=== PATIENT | female | born 1955 | race Caucasian/White ===

== ENCOUNTER → 2020-03-29 10:44 | Outpatient (BNVA) | payer MEDICARE, SELFPAY | PROVIDERS: PCP Physician Assistant; Visit Provider Family Medicine Adult Medicine | DX: M54.12 Radiculopathy, cervical region (principal); M96.1 Postlaminectomy syndrome, not elsewhere classified; Z79.899 Other long term (current) drug therapy | CPT/HCPCS: 99202; Q3014 ==

== ENCOUNTER → 2020-04-14 13:49 | Outpatient (BNVA) | payer MEDICARE, SELFPAY | PROVIDERS: PCP Physician Assistant; Visit Provider Family Medicine Adult Medicine | DX: Z51.81 Encounter for therapeutic drug level monitoring (principal) | CPT/HCPCS: 99211 ==

== ENCOUNTER → 2020-05-12 15:41 | Outpatient (BNVA) | payer MEDICARE, SELFPAY | PROVIDERS: PCP Physician Assistant; Visit Provider Family Medicine Adult Medicine | DX: M54.12 Radiculopathy, cervical region (principal); M96.1 Postlaminectomy syndrome, not elsewhere classified | CPT/HCPCS: 99212 ==

== ENCOUNTER → 2020-06-09 15:04 | Outpatient (BNVA) | payer MEDICARE, SELFPAY | PROVIDERS: PCP Physician Assistant; Visit Provider Family Medicine Adult Medicine | DX: M54.12 Radiculopathy, cervical region (principal); M96.1 Postlaminectomy syndrome, not elsewhere classified | CPT/HCPCS: 99212 ==

== ENCOUNTER → 2020-07-07 15:06 | Outpatient (BNVA) | payer MEDICARE, SELFPAY | PROVIDERS: PCP Physician Assistant; Visit Provider Family Medicine Adult Medicine | DX: M96.1 Postlaminectomy syndrome, not elsewhere classified (principal); M54.12 Radiculopathy, cervical region | CPT/HCPCS: 99212 ==

== ENCOUNTER → 2020-07-20 15:51 | Outpatient (BNVA) | payer MEDICARE, SELFPAY | PROVIDERS: PCP Physician Assistant; Visit Provider Anesthesiology | DX: M47.812 Spondylosis without myelopathy or radiculopathy, cervical region (principal); Z79.891 Long term (current) use of opiate analgesic; Z79.899 Other long term (current) drug therapy | CPT/HCPCS: 99212 ==

== ENCOUNTER → 2020-08-17 12:08 | Outpatient (BNVA) | payer MEDICARE, SELFPAY | PROVIDERS: PCP Physician Assistant; Visit Provider Anesthesiology | DX: M47.812 Spondylosis without myelopathy or radiculopathy, cervical region (principal); Z79.891 Long term (current) use of opiate analgesic | CPT/HCPCS: Q3014 ==

== ENCOUNTER → 2020-08-18 14:59 | Outpatient (BNVA) | payer MEDICARE, SELFPAY | PROVIDERS: PCP Physician Assistant; Visit Provider Family Medicine Adult Medicine | DX: M96.1 Postlaminectomy syndrome, not elsewhere classified (principal); M54.12 Radiculopathy, cervical region; Z79.899 Other long term (current) drug therapy | CPT/HCPCS: 99212 ==

== ENCOUNTER → 2020-09-15 14:51 | Outpatient (BNVA) | payer MEDICARE, SELFPAY | PROVIDERS: PCP Physician Assistant; Visit Provider Family Medicine Adult Medicine | DX: M96.1 Postlaminectomy syndrome, not elsewhere classified (principal); M54.12 Radiculopathy, cervical region | CPT/HCPCS: 99212 ==

== ENCOUNTER → 2020-10-11 14:38 | Outpatient (BNVA) | payer MEDICARE, SELFPAY | PROVIDERS: PCP Physician Assistant; Visit Provider Family Medicine Adult Medicine | DX: M96.1 Postlaminectomy syndrome, not elsewhere classified (principal); M54.12 Radiculopathy, cervical region | CPT/HCPCS: 99212 ==

== ENCOUNTER 2020-10-18 08:26 | Outpatient (REF) | payer MEDICARE, SELFPAY ==
--- NOTE | ~2020-10-18 | XR_ITS ---
EXAMINATION: XR CHEST CLINICAL INFORMATION: Cough COMPARISON: None TECHNIQUE: 2 views of the chest were obtained. FINDINGS: The lungs are clear. The vascularity is normal. There is no airspace consolidation or effusion. The heart is normal in size and the hilar and mediastinal contours are normal. There is borderline levocurvature lower thoracic spine. Bone island seen central right humeral head. XR/XR chest 2V IMPRESSION: Unremarkable examination.
[2020-10-18 11:17] LABS: MANUAL DIFF FLAG NO
[2020-10-18 11:25] LABS: Basophils Absolute Auto 0.1 X10*3/uL (0.0-0.2); Basophils Percent Auto 1.1 % (0-2); Eosinophils Absolute Auto 0.2 X10*3/uL (0.0-0.4); Eosinophils Percent Auto 3.8 % (0-4); Hematocrit 44.8 % (37-47); Hemoglobin 14.1 g/dl (12.0-16.0); Imm Gran Abs Auto 0.01 X10*3/uL (0.00-0.03); Imm Gran Pct Auto 0.2 % (0.0-0.4); Lymphocytes Absolute Auto 1.2 X10*3/uL (1.2-4.9); Lymphocytes Percent Auto 26.1 % (20-40); Mean Corpuscular HGB Conc 31.5 g/dl (31.0-35.0); Mean Corpuscular Volume 98.5 fL (80-98); Mean Platelet Volume 11.8 fL (9.4-12.3); Monocytes Absolute Auto 0.4 X10*3/uL (0.1-1.2); Monocytes Percent Auto 8.7 % (2-11); Neutrophils Absolute Auto 2.7 X10*3/uL (2.0-8.3); Neutrophils Percent Auto 60.1 % (45-73); Platelet Count 244 X10*3/uL (160-400); Red Blood Count 4.55 X10*6/uL (4.20-5.50); Red Cell Distribution Width 13.2 % (11.0-16.0); White Blood Count 4.5 X10*3/uL (4.8-10.8)
[2020-10-18 11:35] LABS: Estimated Average Glucose 105 mg/dL; Hemoglobin A1c % 5.3 %
[2020-10-18 11:37] LABS: Alanine Aminotransferase 16 U/L (0-31); Albumin Level 4.4 g/dL (3.5-5.0); Alkaline Phosphatase 123 U/L (39-117); Anion Gap 15 (12-20); Aspartate Amino Transferase 16 U/L (5-31); Bilirubin Total 0.3 mg/dL (0.0-1.0); Blood Urea Nitrogen 22 mg/dL (9-16); Calcium 9.5 mg/dL (8.4-10.2); Carbon Dioxide 23 mmol/L (22-29); Chloride 114 mmol/L (96-108); Cholesterol 231 mg/dL; Estimated Glomerular Filt Rate 46; Glucose Fasting 105 mg/dL (60-99); HDL Cholesterol 57 mg/dL; LDL Cholesterol Calculated 136 mg/dl; Potassium 4.7 mmol/L (3.3-5.1); Sodium 147 mmol/L (135-145); Total Protein 6.8 g/dL (6.5-8.0); Triglycerides 192 mg/dL
[2020-10-18 11:57] LABS: TSH reflex Free T4 1.13 uIU/mL (0.32-4.0)
== END 2020-10-18 08:27 | disposition home or self-care (01) ==
LOC: HO.HMGCX 08:26
PROVIDERS: PCP Physician Assistant; Visit Provider Physician Assistant
DX: E78.5 Hyperlipidemia, unspecified (principal); E66.09 Other obesity due to excess calories; Z68.33 Body mass index [BMI] 33.0-33.9, adult
CPT/HCPCS: 36415; 71046; 80053; 80061; 83036; 84443; 85025

== ENCOUNTER → 2020-11-03 08:55 | Outpatient (BNVA) | payer MEDICARE, SELFPAY | PROVIDERS: PCP Physician Assistant; Visit Provider Family Medicine Adult Medicine | DX: M54.12 Radiculopathy, cervical region (principal); M96.1 Postlaminectomy syndrome, not elsewhere classified | CPT/HCPCS: 99212 ==

== ENCOUNTER 2020-12-02 07:08 | Day surgery (SDC) | payer MEDICARE, OTHER, SELFPAY ==
[2020-11-25 10:59] VITALS: BMI 37.7
--- NOTE | 2020-12-01 12:43 | HO.ANESPROP2 ---
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 (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) Spondylosis of cervical spine (Acute) Failed back syndrome, cervical (Acute) Left cervical radiculopathy (Acute) Past Medical History Medical History (Updated 12/02/20 @ 09:43 by Odalys Mittal MD) Anxiety Chronic cough COVID-19 vaccine series completed Failed back syndrome, cervical GERD (gastroesophageal reflux disease) Hyperlipidemia IBS (irritable bowel syndrome) Left cervical radiculopathy 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 Migraines Spondylosis of cervical spine Tremor Surgical History Surgical History (Updated 11/25/20 @ 10:58 by Nan Pitt RN) History of ankle surgery History of surgery on arm History of tonsillectomy and adenoidectomy Hx of hysterectomy, total Status post debridement Social History Social History Household Members Other:: lives with , son and granddaughter Housing: House Are you a primary healthcare science specialist to a significant other at home: No Do you presently have visiting nurse or other home services: No Alcohol intake: never Patient Tobacco Use Status: Never used Tobacco e-Cigarette/Vaping Use: Never Used Second Hand Smoke Exposure: No Use of substances other than those prescribed or required for medical reasons: No Have you been hit, kicked, punched, or otherwise hurt by someone within the past year? 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 Meds Allergies Allergy/AdvReac Type Severity Reaction Status Date / Time morphine Allergy Difficulty Verified 12/02/20 07:45 Breathing Home Medications Medication Instructions Recorded Confirmed Last Taken Type clonidine HCl 0.1 mg tablet 0.1 mg PO BEDTIME 01/28/20 11/25/20 Unknown History ramelteon 8 mg tablet 8 mg PO BEDTIME 01/28/20 11/25/20 Unknown History albuterol sulfate 90 mcg/actuation 1 - 2 puff PO Q4H PRN 11/25/20 11/25/20 Unknown History aerosol inhaler zolpidem 10 mg tablet 1 tab PO BEDTIME PRN 11/25/20 11/25/20 Unknown History Exam Exam Date and Time: December 01, 2020 1243 Height,Weight and Vital Signs: Height 5 ft Weight 87.543 kg Assessment and Plan Assessment Anesthesia Assessment: Chart Reviewed Documented by User: Odalys Mittal MD 12/02/20 09:47 [facility] Past Medical History Medical History (Updated 12/02/20 @ 09:43 by Odalys Mittal MD) Anxiety Chronic cough COVID-19 vaccine series completed Failed back syndrome, cervical GERD (gastroesophageal reflux disease) Hyperlipidemia IBS (irritable bowel syndrome) Left cervical radiculopathy 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 Migraines Spondylosis of cervical spine Tremor Family History Family history of problems with anesthesia: No Surgical History Surgical History (Updated 11/25/20 @ 10:58 by Nan Pitt RN) History of ankle surgery History of surgery on arm History of tonsillectomy and adenoidectomy Hx of hysterectomy, total Status post debridement History of Problems with Anesthesia: No Social History Social History Household Members Other:: lives with , son and granddaughter Housing: House Are you a primary healthcare science specialist to a significant other at home: No Do you presently have visiting nurse or other home services: No Alcohol intake: never Patient Tobacco Use Status: Never used Tobacco e-Cigarette/Vaping Use: Never Used Second Hand Smoke Exposure: No Use of substances other than those prescribed or required for medical reasons: No Have you been hit, kicked, punched, or otherwise hurt by someone within the past year? 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 Allergies Allergy/AdvReac Type Severity Reaction Status Date / Time morphine Allergy Difficulty Verified 12/02/20 07:45 Breathing Home Medications Medication Instructions Recorded Confirmed Last Taken Type clonidine HCl 0.1 mg tablet 0.1 mg PO BEDTIME 01/28/20 11/25/20 Unknown History ramelteon 8 mg tablet 8 mg PO BEDTIME 01/28/20 11/25/20 Unknown History albuterol sulfate 90 mcg/actuation 1 - 2 puff PO Q4H PRN 11/25/20 11/25/20 Unknown History aerosol inhaler zolpidem 10 mg tablet 1 tab PO BEDTIME PRN 11/25/20 11/25/20 Unknown History Exam Height,Weight and Vital Signs: Height 5 ft Weight 87.543 kg Vital Signs Temp Pulse Resp BP Pulse Ox 12/02/20 07:46 97.7 F 62 16 155/74 H 98 Airway Mallampati Class: II TM Dist: >3cm Neck ROM: Full Denture: Upper Heart: RRR Lungs: CTAB Assessment and Plan Assessment Anesthesia Assessment: Anesthesia Plan Discussed Final Anesthetic Review Family History of Problems with Anesthesia: No History of Problems with Anesthesia: No NPO: Yes ASA Class: III Final Preanesthetic Review: No Changes in Pt Med Stat, Meds/Allgs Chart Reviewed, Consent Obtained/Reviewed and Anes Risks/Benef Reviewed Patient Risk: Intermediate Procedure Risk: Low Assessment/Block/Sedation in SS: Assess/Block/Sedation-SS Anesthetic Plan Anesthetic Plan: MAC: Disposition: Standard PACU
--- NOTE | ~2020-12-02 | FL_ITS ---
EXAMINATION: XR FLUOROSCOPY WITH IMAGES CLINICAL INFORMATION: Spinal stimulator COMPARISON: None. TECHNIQUE: Fluoroscopy performed by Dr. Sravan Phelps. Fluoroscopy time: 288.0 seconds DAP: 83.99 mGycm2 Images: 4 FL/FL guidance in OR IMPRESSION: Intraoperative fluoroscopic guidance provided. Submitted images show placement of a spinal stimulator with the most cephalad aspect of the electrode seen at the C2 level.
[2020-12-02 07:46] VITALS: BP 155/74; PULSE 62; RESP 16; TEMP 36.5; O2SAT 98
[2020-12-02] MEDS: Lactated Ringers 1,000 ML 100 ML IVCONT (08:32)
--- NOTE | 2020-12-02 09:26 | MHC.SHP ---
Pre-Procedural Eval Section A Date of Service: 12/02/20 Changes since office visit: Yes Patient answered all questions The History & Physical has been completed within 30 days and I have reviewed it.: No Section B Chief Complaint: spondylosis with myelopathy cervical region Details of Present Illness: as above Relevant Family History (Specify if Yes): No Relevant Social History: None Present Medications: see Short Stay Collaborative assessment Medical History: No relevant PMH History of Previous Operations: No relevant previous surgery Allergies: Allergies Allergy/AdvReac Type Severity Reaction Status Date / Time morphine Allergy Difficulty Verified 12/02/20 07:45 Breathing Review of Systems Sugical H&P ROS: Negative: Constitution, Cardiovascular, Respiratory, Neurological, Psychiatric, Hem-Onc, Allergic/Immunologic, Gastrointestinal, Genitourinary, Musculoskeletal, Integumentary, Endocrine and Eyes/Ears/Nose/Throat Exam Surgical H&P Exam: Normal: HEENT, Normal: Heart, Normal: Lungs, Normal: Extremities, Normal: Abdomen, Normal: Skin and Normal: Neurological Plan Diagnosis/Plan: Unchanged I have reviewed the history and physical and performed a pertinent physical examination on my patient. No changes have occurred unless specified.
[2020-12-02] MEDS: ceFAZolin Sodium/Dextrose,Iso 2 GM/50 ML PIGGYBACK IV (09:56)
[2020-12-02 11:25] VITALS: BP 152/64; PULSE 65; RESP 20; TEMP 36.6; O2SAT 98
--- NOTE | 2020-12-02 11:27 | PM.OP ---
Brief Operative Note Date of Service: 12/02/20 Pre-op diagnosis: Spondylosis cervical spine, disc degeneration cervical spine Procedure: As above Implants: None permanent Surgeon: Sravan Phelps MD Anesthesia: MAC Was an Waste Management Recycling Technician used for this Procedure?: No Estimated blood loss (mL): 3 Condition: stable Disposition: PACU
--- NOTE | 2020-12-02 11:28 | P.OP_ITS ---
Operative Note Operative Note Date of Service: 12/02/20 Narrative: Ani is very pleasant 65 years old female who came today the operating room for the trial of cervical spinal cord stimulation Xanitos machine for the treatment of Complex regional pain syndrome of the left lower extremity and chronic back pain. After obtaining informed consent patient was brought to the operating room, SHE was positioned prone on operating table, [place] [employer] monitors were applied and patient was minimally sedated.? ? Time-out was performed delineating correct site, side, the nature of the procedure, patient's allergy, preoperative antibiotic if needed.? All operating room staff was participating in OR time-out procedure. Patient's entire back was prepped with ChloraPrep twice and draped with full body fenestrated drape.? Sterilely draped C-arm was brought over operating field and sqare picture of T7 and T8 as well as T9 vertebrae as were demonstrated on the screen.? Attention FIRST? was concentrated on the T7-T8 epidural interspace.? The location of the projection of the right pedicle center of the T9 vertebra was found on the skin using C-arm.? This location was injected with mixture of lidocaine 2% and Marcaine 0.5% 5 cc.? After that 11 blade was used to make a vaughn on the skin.? 10 cm 14 gauge curved introducer epidural needle was inserted through the vaughn and advanced to T7-T8 epidural interspace.? The advancement of the needle was performed on anterior posterior and lateral views.? Guitar wire and loss of resistance technique were used to locate epidural space.? When guitar wire was spread in the epidural fashion, epidural lead was inserted through the skin and it was advanced to C2 position strictly on the midline.? Significant difficulty with advancement of the epidural lead secondary to the patient's pronounced thoracic kyphosis were encountered. The needle was removed and replaced with blue sheath introducer device. That helped to navigate the needle all the way up to C2 vertebra. At this moment patient the epidural leads were connected to the testing device.? The patient reported stimulation corresponding to her pain.? After satisfactory position of the lead was established the blue she has introducer were withdrawn, the stylette wires were removed from the epidural leads.? The anchoring device was dislodged on the lead and advanced to the level of the skin.? The anchoring devices was sutured with two 0-0 silk sutures to the skin of the patient.? The lead was connected to testing device.? Bacitracin ointment was applied to the entrance point of bilateral needles.? Sterile dressing was applied to the patient's back.? The testing device was also glued to the patient's back.? Upon completion of the procedure the patient was awake and she was transfered to the PACU where she recovered uneventfully
[2020-12-02 11:40] VITALS: BP 136/58; PULSE 56; RESP 20; O2SAT 97
[2020-12-02 11:55] VITALS: BP 129/65; PULSE 58; RESP 18; TEMP 36.4; O2SAT 96
[2020-12-02 12:32] VITALS: BP 129/65; PULSE 56; RESP 18; TEMP 36.1; O2SAT 96
== END 2020-12-02 13:24 | disposition home or self-care (01) ==
PROVIDERS: PCP Physician Assistant; Visit Provider Anesthesiology
PROC: (CPT 63650; principal; 2020-12-02 08:40)
DX: M47.812 Spondylosis without myelopathy or radiculopathy, cervical region (principal); M50.30 Other cervical disc degeneration, unspecified cervical region; M96.1 Postlaminectomy syndrome, not elsewhere classified; Z79.891 Long term (current) use of opiate analgesic
CPT/HCPCS: 63650; C1778; J0690; J2250; J3010

== ENCOUNTER → 2020-12-08 10:51 | Outpatient (BNVA) | payer MEDICARE, SELFPAY | PROVIDERS: PCP Physician Assistant; Visit Provider Anesthesiology | DX: M47.812 Spondylosis without myelopathy or radiculopathy, cervical region (principal); Z79.891 Long term (current) use of opiate analgesic | CPT/HCPCS: 99212 ==

== ENCOUNTER → 2020-12-13 14:46 | Outpatient (BNVA) | payer MEDICARE, SELFPAY | PROVIDERS: PCP Physician Assistant; Visit Provider Family Medicine Adult Medicine | DX: Z51.81 Encounter for therapeutic drug level monitoring (principal); M96.1 Postlaminectomy syndrome, not elsewhere classified; M54.12 Radiculopathy, cervical region | CPT/HCPCS: 99212 ==

== ENCOUNTER → 2021-01-10 14:47 | Outpatient (BNVA) | payer MEDICARE, SELFPAY | PROVIDERS: PCP Physician Assistant; Visit Provider Family Medicine Adult Medicine | DX: Z51.81 Encounter for therapeutic drug level monitoring (principal); M96.1 Postlaminectomy syndrome, not elsewhere classified; M54.12 Radiculopathy, cervical region | CPT/HCPCS: 99212 ==

== ENCOUNTER → 2021-02-07 14:49 | Outpatient (BNVA) | payer MEDICARE, SELFPAY | PROVIDERS: Visit Provider Family Medicine Adult Medicine | DX: Z51.81 Encounter for therapeutic drug level monitoring (principal); M96.1 Postlaminectomy syndrome, not elsewhere classified; M47.812 Spondylosis without myelopathy or radiculopathy, cervical region | CPT/HCPCS: 99212 ==

== ENCOUNTER → 2021-03-02 10:59 | Day surgery (SDC) | payer MEDICARE, SELFPAY ==
[2021-02-23 15:41] VITALS: BMI 35.7
--- NOTE | 2021-03-01 12:11 | HO.ANESPROP2 ---
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 (Acute) Spondylosis of cervical spine (Acute) Failed back syndrome, cervical (Acute) Left cervical radiculopathy (Acute) Past Medical History Medical History Anxiety Chronic cough COVID-19 vaccine series completed Failed back syndrome, cervical GERD (gastroesophageal reflux disease) Hyperlipidemia IBS (irritable bowel syndrome) Left cervical radiculopathy 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 Migraines Spondylosis of cervical spine Tremor Family History Family history of problems with anesthesia: No Surgical History Surgical History History of ankle surgery History of surgery on arm History of tonsillectomy and adenoidectomy Hx of hysterectomy, total S/P insertion of spinal cord stimulator Status post debridement History of Problems with Anesthesia: No Social History Social History Household Members Other:: lives with , son and granddaughter Housing: House Are you a primary senior caregiver to a significant other at home: No Do you presently have visiting nurse or other home services: No Alcohol intake: never Patient Tobacco Use Status: Never used Tobacco e-Cigarette/Vaping Use: Never Used Second Hand Smoke Exposure: No Use of substances other than those prescribed or required for medical reasons: No Are you DNR?: No Advance Directives: No Advance Directives Information Provided: No Advance Directives on File: No Recently lost weight without trying: No Nutrition Risks: No Nutritional Risk Patient : No Current occupational status: disabled 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 Allergies Allergy/AdvReac Type Severity Reaction Status Date / Time morphine Allergy Difficulty Verified 02/07/21 15:24 Breathing Home Medications Medication Instructions Recorded Confirmed Last Taken Type clonidine HCl 0.1 mg tablet 0.1 mg PO BEDTIME 01/28/20 02/23/21 Unknown History ramelteon 8 mg tablet 8 mg PO BEDTIME 01/28/20 02/23/21 Unknown History albuterol sulfate 90 mcg/actuation 1 - 2 puff PO Q4H PRN 11/25/20 02/23/21 Unknown History aerosol inhaler zolpidem 10 mg tablet 1 tab PO BEDTIME PRN 11/25/20 02/23/21 Unknown History Exam Exam Date and Time: March 01, 2021 1211 Height,Weight and Vital Signs: Height 5 ft Weight 83.007 kg Assessment and Plan Assessment Anesthesia Assessment: Chart Reviewed Final Anesthetic Review Family History of Problems with Anesthesia: No History of Problems with Anesthesia: No Documented by User: Ani Brandon MD 03/02/21 13:17 [facility] Past Medical History Medical History Anxiety Chronic cough COVID-19 vaccine series completed Failed back syndrome, cervical GERD (gastroesophageal reflux disease) Hyperlipidemia IBS (irritable bowel syndrome) Left cervical radiculopathy 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 Migraines Spondylosis of cervical spine Tremor Surgical History Surgical History History of ankle surgery History of surgery on arm History of tonsillectomy and adenoidectomy Hx of hysterectomy, total S/P insertion of spinal cord stimulator Status post debridement Social History Social History Household Members Other:: lives with , son and granddaughter Housing: House Are you a primary senior caregiver to a significant other at home: No Do you presently have visiting nurse or other home services: No Alcohol intake: never Patient Tobacco Use Status: Never used Tobacco e-Cigarette/Vaping Use: Never Used Second Hand Smoke Exposure: No Use of substances other than those prescribed or required for medical reasons: No Are you DNR?: No Advance Directives: No Advance Directives Information Provided: No Advance Directives on File: No Recently lost weight without trying: No Nutrition Risks: No Nutritional Risk Patient : No Current occupational status: disabled 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 Allergies Allergy/AdvReac Type Severity Reaction Status Date / Time morphine Allergy Difficulty Verified 02/07/21 15:24 Breathing Home Medications Medication Instructions Recorded Confirmed Last Taken Type clonidine HCl 0.1 mg tablet 0.1 mg PO BEDTIME 01/28/20 02/23/21 Unknown History ramelteon 8 mg tablet 8 mg PO BEDTIME 01/28/20 02/23/21 Unknown History albuterol sulfate 90 mcg/actuation 1 - 2 puff PO Q4H PRN 11/25/20 02/23/21 Unknown History aerosol inhaler zolpidem 10 mg tablet 1 tab PO BEDTIME PRN 11/25/20 02/23/21 Unknown History Exam Airway Mallampati Class: II TM Dist: >3cm Neck ROM: Full Denture: Upper Loose/Missing/Broken Teeth: Yes and Upper Heart: RRR Lungs: CTA Assessment and Plan Assessment Anesthesia Assessment: Anesthesia Plan Discussed Final Anesthetic Review NPO: Yes ASA Class: II Final Preanesthetic Review: Meds/Allgs Chart Reviewed, Consent Obtained/Reviewed and Anes Risks/Benef Reviewed Patient Risk: Low Procedure Risk: Intermediate Anesthetic Plan Anesthetic Plan: MAC: Disposition: Standard PACU
--- NOTE | ~2021-03-02 | FL_ITS ---
EXAMINATION: XR FLUOROSCOPY WITH IMAGES CLINICAL INFORMATION: Cervical spine stimulator. COMPARISON: Previous exam November 2020. TECHNIQUE: Fluoroscopy performed by Dr. Sravan Phelps. Fluoroscopy time: 5.5 minutes DAP: 15 Gy-cm2. Images: 3 FINDINGS: There are 2 leads projecting over the cervical spine spinal canal. The top of the leads is seen at the C1-C2 disc space level. FL/FL guidance in OR IMPRESSION: Fluoroscopy guidance for cervical spine stimulator.
[2021-03-02 11:31] VITALS: BP 140/77; PULSE 59; RESP 16; TEMP 36.6; O2SAT 99
[2021-03-02] MEDS: Lactated Ringers 1,000 ML 100 ML IVCONT (11:39)
--- NOTE | 2021-03-02 12:19 | P.HPSUR_ITS ---
Pre-Procedural Eval Section A Date of Service: 03/02/21 The patient is an INPATIENT: No Changes since office visit: Yes Patient answered all questions The History & Physical has been completed within 30 days and I have reviewed it.: No Section B Chief Complaint: Spondylosis of cervical spine Details of Present Illness: as above Relevant Family History (Specify if Yes): No Relevant Social History: None Present Medications: see Short Stay Collaborative assessment Medical History: No relevant PMH History of Previous Operations: Relevant previous surgery/procedure and date(s) Allergies: Allergies Allergy/AdvReac Type Severity Reaction Status Date / Time morphine Allergy Difficulty Verified 02/07/21 15:24 Breathing Review of Systems Sugical H&P ROS: Negative: Constitution, Cardiovascular, Respiratory, Neurological, Psychiatric, Hem-Onc, Allergic/Immunologic, Gastrointestinal, Genitourinary, Musculoskeletal, Integumentary, Endocrine and Eyes/Ears/Nose /Throat Exam Surgical H&P Exam: Normal: HEENT, Normal: Heart, Normal: Lungs, Normal: Extremities, Normal: Abdomen, Normal: Skin and Normal: Neurological Plan Diagnosis/Plan: Unchanged I have reviewed the history and physical and performed a pertinent physical examination on my patient. No changes have occurred unless specified.
--- NOTE | 2021-03-02 13:28 | P.OP_ITS ---
Operative Note Operative Note Date of Service: 03/02/21 Narrative: Ani is a very pleasany 65 y.o. lady who came to OR for the? implantl of SCS [employer] to treat cervical pain secondary to postlaminectomy syndrome. After obtaining informed consent the patient was brought to the operating room, She was positioned prone on the OR table, [place] [employer] monitors were applied and patient was sedated, all pressure points were protected. ? Time-out was performed delineating correct site, side, the nature of the procedure, patient's allergy, preoperative antibiotics: the patient received 2 g of cefasolon IV 30 minutes before the incision. ? All operating room staff was participating in OR time-out procedure. Patient's entire back was prepped with ChloraPrep twice and draped with full body drape comprised of the 2 U drapes including ioban film..? Sterilely draped C-arm was brought over operating field and square picture of T6, T7 and T8 vertebrae were demonstrated on the screen. The projection of T7- T8? vertebral bodies strictly down midline was injected with lidocaine 2% mixed with bupivacaine 0.5% .? After that strict midline? incision was made in the projection ofT7 and T8 vertebral bodies to the skin using 10 blade.? The incision was widened using cautery dissection, and then thorough hemostasis was performed and prevertebral fascia was freed from overlying tissues.? The location of the projection of the right t8 pedicle center on the right was found? using C-arm.? This location was injected with mixture of lidocaine 2% and Marcaine 0.5% 5 cc. ?10 cm 14 gauge introducer epidural needle was inserted? into the fascia and advanced to? the epidural interspace T6- T7 on the right.? The advancement of the needle was performed on anterior posterior and lateral views.? Guitar wire and loss of resistance to air technique were used to locate epidural space.? When guitar wire was spread in the epidural fashion, epidural lead was inserted through the needle and it was? advanced to the cervical posterior epidural space on anterior posterior and lateral intermittent views.?The epidural lead was advanced to the C1-C2 posterior epidural space and verified being in posterior epidural space on the lateral view. it was positioned at midline. After that location of the projection of the LEFT pedicle center of the T8 vertebra was found on the skin using C-arm.? This location was injected with mixture of lidocaine 2% and Marcaine 0.5% 5 cc. 10 cm 14 gauge introducer epidural needle was inserted through the fascia and advanced to T6- T7 epidural interspace. The WOO to air was used to locate epidural space? and after that epidural lead was inserted into the needle and advanced toward C2 epidural interspace slightly left from the midline. After that considering the pain of the patient being mostly left-sided the midline epidural lead was moved left to the left position epidural lead. After that we woke up the patient, connected the leads to the testing device and wake up test was performed. The patient reported stimulation corresponding to the pain.The introducer epidural needles were withdrawn with care taken to keep the epidural leads in place. The anchoring devices were dislodged on the leads and advanced to the level of the? prevertebral fascia.? They were fixed to prevertebral fascia with 1-0 Tycron two sutures for each anchoring device and then the screws were tightened on the anchoring device fixating the epidural leads to the anchoring devices. After that thorough irrigation of the wound was performed with normal saline containing vancomycin and the wound was packed with vancomycin soaked 4 x 4? Ray-Kuldip. ? After that attention was concentrated on the right loin of the patient where?she wanted the battery to be implanted.? The injection of the local anesthetic lidocaine 2% mixed with bupivacaine 0.5% was made in the projection of the horizontal line 2 cm below the top of the illiac crest. After that 6.5 cm horizontal incision was made on the skin using 10 blade scalpel.? The wound was widened using weitlaner retractor and thorough hemostasis was performed using electrocautery device.? After that 2 cm deep? under the skin the pocket was formed for the battery.? Thorough hemostasis was obtained again and irrigation was performed using vancomycin containing normal saline. After that the? tunneling device was brought on the operating field and the two wounds were connected by tunneling device.? Using tunneling device the epidural electrodes were dislodged into the lateral wound.? They were connected to the battery.? At this time impedance was checked and found to be satisfactory.? Both? wounds were irrigated again with vanco containing normal saline and the sutures were applied in the most superior central portion of the wound and most superior lateral portion of the wound using Tycron 1.0 . The sutures were connected to the orifices on the battery, the epidural leads were gathered behind the body of the battery and the battery was inserted into the wound.? After that? anchoring sutu res were tied.? The wounds were again irrigated with? vancomycin containing normal saline they were suction dried and the were closed using? 0? uninterrupted Polysorb sutures.? 2-0 sutures Polysorb were used to approximate the level of the skin.? After that cydney were applied to the skin level.? Bacitracin ointment was applied to the area of the surgical incisions and then sterile dressing was applied using? Medipore tape. The patient tolerated procedure well.? SHe was awakened and transferred to PACU for recovery without immediate complications.
--- NOTE | 2021-03-02 13:43 | PM.OP ---
Brief Operative Note Date of Service: 03/02/21 Pre-op diagnosis: postlaminectomy syndrome cervical sine Post-op diagnosis: same Procedure: implantation of the SCS [employer] Implants: [employer] eva battery and epidural electrodes #2 Surgeon: Sravan Phelps MD Anesthesia: MAC Was an [place] used for this Procedure?: No Estimated blood loss (mL): 17 Pathology: none sent Condition: stable Disposition: PACU
[2021-03-02 15:00] VITALS: BP 130/56; PULSE 60; O2SAT 98
[2021-03-02 16:45] VITALS: BP 134/62; PULSE 60; RESP 12; TEMP 36.3; O2SAT 96
[2021-03-02 17:00] VITALS: BP 128/63; PULSE 65; RESP 16; O2SAT 97
[2021-03-02 17:15] VITALS: BP 113/62; PULSE 60; RESP 16; TEMP 36.2; O2SAT 96
== END | disposition home or self-care (01) ==
PROVIDERS: PCP Physician Assistant; Visit Provider Anesthesiology
PROC: (CPT 63685; principal; 2021-03-02 12:20)
DX: M47.812 Spondylosis without myelopathy or radiculopathy, cervical region (principal); M54.2 Cervicalgia; M25.522 Pain in left elbow; M79.602 Pain in left arm; M25.512 Pain in left shoulder; M96.1 Postlaminectomy syndrome, not elsewhere classified; Z91.81 History of falling; Z79.891 Long term (current) use of opiate analgesic
CPT/HCPCS: 63685; 63650 ×2; C1713; C1778; C1787; C1820; J0690; J1885; J2250; J3010; J3370

== ENCOUNTER → 2021-03-08 10:43 | Outpatient (BNVA) | payer MEDICARE, SELFPAY | PROVIDERS: PCP Physician Assistant; Visit Provider Anesthesiology | DX: M47.812 Spondylosis without myelopathy or radiculopathy, cervical region (principal); Z79.891 Long term (current) use of opiate analgesic | CPT/HCPCS: 99212 ==

== ENCOUNTER → 2021-03-15 10:48 | Outpatient (BNVA) | payer MEDICARE, SELFPAY | PROVIDERS: Visit Provider Anesthesiology | DX: Z51.81 Encounter for therapeutic drug level monitoring (principal); M47.812 Spondylosis without myelopathy or radiculopathy, cervical region; Z79.891 Long term (current) use of opiate analgesic; Z96.82 Presence of neurostimulator | CPT/HCPCS: 99212 ==

== ENCOUNTER 2021-05-25 08:06 | Outpatient (REF) | payer MEDICARE, SELFPAY ==
[2021-05-25 11:12] LABS: Mean Corpuscular HGB Conc 31.8 g/dl (31.0-35.0); Mean Corpuscular Hemoglobin 31.9 pg (27.0-33.0); Mean Corpuscular Volume 100.2 fL (80.0-98.0); Mean Platelet Volume 11.6 fL (9.4-12.3); Platelet Count 216 X10*3/uL (160-400); Red Blood Count 4.39 X10*6/uL (4.20-5.50); Red Cell Distribution Width 13.4 % (11.0-16.0); White Blood Count 3.8 X10*3/uL (4.8-10.8)
[2021-05-25 11:39] LABS: Estimated Average Glucose 100 mg/dL; Hemoglobin A1c % 5.1 %
[2021-05-25 11:45] LABS: Alanine Aminotransferase 21 U/L (0-31); Albumin Level 4.4 g/dL (3.5-5.0); Alkaline Phosphatase 123 U/L (39-117); Anion Gap 13 (12-20); Aspartate Amino Transferase 20 U/L (5-31); Bilirubin Total 0.6 mg/dL (0.0-1.0); Blood Urea Nitrogen 15 mg/dL (9-16); Calcium 10.2 mg/dL (8.4-10.2); Carbon Dioxide 25 mmol/L (22-29); Chloride 112 mmol/L (96-108); Cholesterol 247 mg/dL; Estimated Glomerular Filt Rate 58; Glucose Fasting 102 mg/dL (60-99); HDL Cholesterol 58 mg/dL; LDL Cholesterol Calculated 136 mg/dl; Potassium 4.5 mmol/L (3.3-5.1); Sodium 145 mmol/L (135-145); Total Protein 6.8 g/dL (6.5-8.0); Triglycerides 267 mg/dL
[2021-05-25 11:50] LABS: TSH reflex Free T4 1.61 uIU/mL (0.32-4.0)
== END 2021-05-25 08:07 | disposition home or self-care (01) ==
LOC: HO.HMGCLDS 08:06
PROVIDERS: PCP Physician Assistant; Visit Provider Physician Assistant
DX: E78.5 Hyperlipidemia, unspecified (principal); E66.09 Other obesity due to excess calories; Z68.33 Body mass index [BMI] 33.0-33.9, adult
CPT/HCPCS: 36415; 80053; 80061; 83036; 84443; 85027

== ENCOUNTER 2022-06-26 08:03 | Outpatient (REF) | payer MEDICARE, SELFPAY ==
[2022-06-26 11:41] LABS: Appearance Urine Clear; Color Urine Yellow; Glucose Urine UA Negative (Negative); Leukocyte Esterase Urine Trace (Negative); Nitrite Urine Negative (Negative); PH 5.5 (5.0-9.0); Specific Gravity - Urine 1.015 (1.005-1.025); UMIC TRIGGER UACC YES; Urine Blood Negative (Negative); Urine Ketones Negative (Negative); Urine Protein Negative (Neg-Trace)
[2022-06-26 11:48] LABS: Bacteria Urine None Seen (None Seen); Hyaline Casts Urine 0-2 /LPF (0-2); RBC Urine 0-2 /HPF (0-2); Squamous Epithelial Cell Urine 0-2 /HPF (0-2); WBC Urine 0-5 /HPF (0-5)
[2022-06-26 12:01] LABS: Hematocrit 44.9 % (37.0-47.0); Hemoglobin 14.2 g/dl (12.0-16.0); Mean Corpuscular HGB Conc 31.6 g/dl (31.0-35.0); Mean Corpuscular Hemoglobin 32.3 pg (27.0-33.0); Mean Corpuscular Volume 102.3 fL (80.0-98.0); Platelet Count 219 X10*3/uL (160-400); Red Blood Count 4.39 X10*6/uL (4.20-5.50); Red Cell Distribution Width 12.7 % (11.0-16.0); White Blood Count 4.2 X10*3/uL (4.8-10.8)
[2022-06-26 12:37] LABS: Alanine Aminotransferase 25 U/L (0-31); Albumin Level 4.2 g/dL (3.5-5.0); Alkaline Phosphatase 113 U/L (39-117); Anion Gap 17 (12-20); Aspartate Amino Transferase 20 U/L (5-31); Bilirubin Total 0.5 mg/dL (0.0-1.0); Blood Urea Nitrogen 16 mg/dL (9-16); Calcium 9.5 mg/dL (8.4-10.2); Carbon Dioxide 24 mmol/L (22-29); Chloride 108 mmol/L (96-108); Cholesterol 206 mg/dL; Estimated Glomerular Filt Rate 53; Glucose Fasting 101 mg/dL (60-99); HDL Cholesterol 59 mg/dL; LDL Cholesterol Calculated 111 mg/dl; Potassium 5.1 mmol/L (3.3-5.1); Sodium 144 mmol/L (135-145); TSH reflex Free T4 2.01 uIU/mL (0.32-4.0); Total Protein 6.3 g/dL (6.5-8.0); Triglycerides 182 mg/dL
== END 2022-06-26 08:04 | disposition home or self-care (01) ==
LOC: HO.HMGCLDS 08:03
PROVIDERS: PCP Physician Assistant; Visit Provider Physician Assistant
DX: E78.5 Hyperlipidemia, unspecified (principal)
CPT/HCPCS: 36415; 80053; 80061; 81001; 84443; 85027

== ENCOUNTER 2022-12-31 08:28 | Outpatient (REF) | payer MEDICARE, SELFPAY | END 2022-12-31 08:29 | disposition home or self-care (01) | LOC: HO.HMGCLDS 08:28 | PROVIDERS: PCP Physician Assistant; Visit Provider Physician Assistant | DX: E78.5 Hyperlipidemia, unspecified (principal); E53.8 Deficiency of other specified B group vitamins; D75.89 Other specified diseases of blood and blood-forming organs | CPT/HCPCS: 36415; 80053; 80061; 82607; 82746; 85027 ==

== ENCOUNTER 2023-01-03 09:25 | Outpatient (AMB) | payer MEDICARE, SELFPAY ==
[2023-01-03 09:27] VITALS: BP 110/70; PULSE 55; O2SAT 95; BMI 29.1
--- NOTE | 2023-01-03 09:27 | MHC.PC.OV ---
Vital Signs 01/03/23 09:27 Height 5 ft 1 in Weight 154 lb 4 oz BMI 29.1 BP 110/70 Blood Pressure Location Rt brachial Position Sitting Pulse 55 Pulse Source Pulse Oximeter Pulse Oximetry (%) 95 Oxygen Delivery Method Room Air Intake Visit Reasons: 6 month f/u Manager Knowledge Required: No Accompanied by: Spouse Allergies morphine Allergy (Verified 01/03/23 10:08) Difficulty Breathing Medication List - Last Reconciled 01/03/23 by Coleman Romo PA-C acetaminophen ER 650 mg PO TID PRN 30 days atorvastatin 80 mg PO BEDTIME 90 days dicyclomine 20 mg PO QID 90 days escitalopram oxalate 20 mg PO DAILY gabapentin 800 mg PO TID 90 days galcanezumab-gnlm (Emgality Pen) 120 mg subcut ONCE 4 weeks linaclotide (Linzess) 145 mcg PO DAILY 30 days montelukast 10 mg PO BEDTIME 90 days pantoprazole 40 mg PO DAILY sucralfate (Carafate) 1 g PO BID 90 days topiramate 100 mg PO BID 90 days zolpidem 10 mg PO BEDTIME 30 days Tobacco use date assessed: 07/02/22 Fall risk assessment: No Falls in past year Last assessed Fall Risk: 01/03/23 Dental Screening Dental Screen Date: 01/03/23 Did you have a dental visit in the last 12 months?: No Did you have a dental problem in the last 6 months where you did not have access to dental care?: No Was dental information given to patient?: Patient has dentist HPI 6 month f/u HPI Details Patient is a 66 old female here today for routine annual physical . Patient has a past medical history significant for generalized anxiety disorder, migraines, GERD, hyperlipidemia, lumbar and cervical disc disease. Concern--> she reports over the last 2 weeks noting left upper breast pain and left axillary pain to palpation. She is concerned and would like an ultrasound for evaluation. Of note does have a family history of breast cancer. Unfortunately patient herself declines mammograms due to a bad experience in pain after mammogram years ago. she does report she has been noticing a tremor in her left hand in arm over the last few years. She reports it does not bother her at all. The tremor does get worse when trying to use her upper left extremity. Otherwise at rest there is no tremor Also she reports she has been having more ankle pain over the last 3 months which has been causing her difficulties with ambulation. She has experienced a traumatic right ankle fracture in 2012 to which she needed hardware placement. She is willing to be re-evaluated by Orthopedics for continued right ankle pain. Will get x-rays to evaluate for hardware failure. Cervical disc disease:? Patient is followed by [place] pain management and has received a spinal stimulator her cervical spine.? She is now off of all narcotic pain medication in doing very well. HLD: recently increased dose of atorvastatin - cholesterol much better. Has lost weight since last office visit .. Migraines:? Reports her migraines have been more frequent as of late.? Was previously on and [place] from her previous primary care and would like to return to monthly injections.? She has been on , ibuprofen in the past without much relief. 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 Migraines Spondylosis of cervical spine Tremor Surgical History S/P insertion of spinal cord stimulator Hx of hysterectomy, total History of tonsillectomy and adenoidectomy History of surgery on arm Status post debridement History of ankle surgery Family History Sister Breast cancer, Onset Age: 42 Social History Household Members Other:: lives with , son and granddaughter Housing: House Are you a primary medicare sales executive to a significant other at home: No Do you presently have visiting nurse or other home services: No Alcohol intake: current Alcohol intake frequency: 0-2 drinks per day Alcohol type: wine Patient Tobacco Use Status: Never used Tobacco e-Cigarette/Vaping Use: Never Used Second Hand Smoke Exposure: No service: No Current occupational status: disabled 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 Kyle Dao, Carmita Espinal, Rashard Burgess and colleagues, with an educational babita from [employer] Review of Systems Const Denies headache(s) Eyes Denies loss of vision ENT Denies vertigo, Denies dizziness, Denies headache(s) and Denies sore throat Card Denies chest pain, Denies leg edema and Denies lightheadedness Resp Denies cough, Denies hemoptysis and Denies wheezing GI Denies abdominal pain, Denies melena, Denies constipation, Denies diarrhea and Denies vomiting Denies urinary frequency, Denies dysuria and Denies urinary urgency Musc Denies arthralgias, Denies joint swelling, Denies numbness and Denies tingling Neuro Denies Abnormal speech present, Denies behavioral changes, Denies vertigo, Denies dizziness, Denies headache(s), Denies loss of vision, Denies memory loss, Denies numbness and Denies tingling Psych Denies anxiety, Denies behavioral changes, Denies depression, Denies memory loss and Denies panic attacks Jesus/Lymph Denies easy bleeding and Denies easy bruising Aller/Immun Denies wheezing Physical exam (Primary Care) Vital Signs: Last Vital Signs Pulse 55 01/03/23 09:27 BP 110/70 01/03/23 09:27 Pulse Ox 95 01/03/23 09:27 Oxygen Delivery Method Room Air 01/03/23 09:27 BMI result Body Mass Index 29.1 Tobacco/Smoking Status: Tobacco use Status Tobacco use date assessed 07/02/22 01/03/23 09:29 Patient Tobacco Use Status Never used Tobacco 01/03/23 09:29 e-Cigarette/Vaping Use Never Used 01/03/23 09:29 Thrive Assessment: Date of Thrive Assessment Date Thrive assessed 07/02/22 01/03/23 09:29 Const General: healthy appearing, no acute distress, alert and awake Nutritional Appearance: well nourished Orientation/consciousness: oriented to person, oriented to place and oriented to time HENMT Ears: TM's normal bilaterally General nose exam: Normal nasal mucous membranes and turbinates present Eyes Conjunctivae: conjunctivae normal Sclerae: sclerae normal Pupils: Equal, round and reactive pupils present Neck Neck: Yes no lymphadenopathy and Yes no JVD Thyroid: Thyroid normal Carotids: no bruits Chest Other: Left breast without any palpable nodules, does report tenderness to palpation. Left axillary tenderness to palpation. No palpable masses noted Chest/axillae images: 1. TENDERNESS TO PALPATION OVER AREA OUTLINED. NO PALPABLE LUMPS NOTED Resp Effort & Inspection: normal respiratory effort and not tachypneic Auscultation: no crackles, no rales, no rhonchi and no wheezes Cardio Rate: regular rate Rhythm: regular rhythm Heart sounds: no murmurs and normal S1 and S2 GI Palpation (GI): Soft to palpation, nontender, no hepatomegaly and no splenomegaly Auscultation: normal bowel sounds Skin General skin exam: no rashes or lesions noted and dry skin Neuro General: oriented to person, oriented to place and oriented to time Cranial nerves: Yes Equal, round and reactive pupils present Speech: No Abnormal speech present Gait exam (Neuro): Normal gait present Motor exam (neuro): no tremor noted Extrem Right upper extremity: full ROM Left upper extremity: full ROM Right lower extremity: full ROM; no edema Left lower extremity: full ROM; no edema Ankle/foot/toe images: 1. NO NOTABLE EDEMA OR ERYTHEMA. WELL-HEALED SURGICAL SCAR OVER INNER ASPECT OF RIGHT ANKLE. FULL RANGE OF MOTION NOTED TO THE RIGHT ANKLE. Psych Mental Status: mental status grossly normal Speech and movement: Normal speech and movement present Affect: normal affect Attitude: cooperative Thought process: Normal thought process present Office Procedures Flu Questionnaire Does the patient have a severe egg allergy?: No Does the patient have severe life threatening allergies?: No Does the patient have a fever or illness today?: No Has the patient ever had Guillain-[place] Syndrome?: No Has the patient ever had any past reaction to a flu shot?: No Immunizations flu vacc [id number] 6mos up(PF) 60 mcg(15 mcgx4)/0.5 mL IM syringe Performing Provider: Coleman Romo PA-C Performing Location: [facility] Administered by: SANDRA Escobedo on 01/03/23 10:02 Dose Route Admin Location Dispensed Lot Number Expiration Date [employer] 0.5 mL IM Left Deltoid 0.5 mL [id number] 09/22/23 64998-115-00 [employer] VIS Given Date VIS Provided VIS Publication Date 01/03/23 Single Vaccine 20 Eligibility Eligibility Date Funding Source Not [facility] Eligible 01/03/23 Private Assessment and Plan Assessment & Plan (1) GERD (gastroesophageal reflux disease): Code(s): K21.9 - Gastro-esophageal reflux disease without esophagitis Qualifiers: Esophagitis bleeding: unspecified whether hemorrhage Esophagitis presence: with esophagitis Qualified Code(s): K21.00 - Gastro-esophageal reflux disease with esophagitis, without bleeding Plan: Continues on PPI therapy without any worsening GERD symptoms. (2) Macrocytosis: Code(s): D75.89 - Other specified diseases of blood and blood-forming organs Plan: Has resolved since dietary changes (3) Failed back syndrome, cervical: Code(s): M96.1 - Postlaminectomy syndrome, not elsewhere classified Plan: Now off of all narcotic pain medications. Has back stimulation device. Continues on gabapentin with good relief her back pain. (4) Tremor: Code(s): R25.1 - Tremor, unspecified Plan: Noted tremor over the last several years. She does report a family history an essential tremor. Will Try medication to help her with her tremor. Patient is interested in medication at this time as she is somewhat bothered by the left hand tremor. (5) Family history of breast cancer: Code(s): Z80.3 - Family history of malignant neoplasm of breast Plan: Patient reports her sister from breast cancer at age 42. She is not interested in doing any breast cancer screening. She does report doing self-breast exams monthly (6) Insomnia: Code(s): G47.00 - Insomnia, unspecified Qualifiers: Insomnia type: primary Qualified Code(s): F51.01 - Primary insomnia Plan: Continues on nightly use zolpidem 10 mg with good effect on sleep. (7) HLD (hyperlipidemia): Code(s): E78.5 - Hyperlipidemia, unspecified Qualifiers: Hyperlipidemia type: unspecified Qualified Code(s): E78.5 - Hyperlipidemia, unspecified Plan: Patient continues on statin therapy without any side effect. Most recent lipid panel showing appropriate LDL. Goal LDL to be below 130 (8) Left axillary pain: Code(s): M79.622 - Pain in left upper arm Plan: Has noted some left axillary tenderness to palpation. (9) Breast pain, left: Code(s): N64.4 - Mastodynia Plan: Has noted over the last 3 months some left breast tenderness over the upper [place] of [place] region . Has family history of breast cancer declines to get mammograms. Will get ultrasound of left breast to evaluate for any nodules. (10) Right ankle pain: Code(s): M25.571 - Pain in right ankle and joints of right foot Qualifiers: Chronicity: chronic Qualified Code(s): M25.571 - Pain in right ankle and joints of right foot; G89.29 - Other chronic pain Plan: Reports some right ankle pain to which makes it difficult for her to ambulate. She has had a traumatic injury to her right ankle in 2011 resulting in the need for surgery and hardware placement. Will supply patient with a stabilizing right ankle brace. Will refer to orthopedics for evaluation. (11) Disorder of ligament of right ankle: Code(s): M24.271 - Disorder of ligament, right ankle Orders: Orders Influenza [id number] Immunization Today Z23 - Encounter for immunization US extremity nonvascular colin Today N64.4 - Mastodynia Lipid Panel Today E78.5 - Hyperlipidemia, unspecified Complete Blood Count no Diff Today K21.00 - Gastro-esophageal reflux disease with esophagitis, without bleeding Comprehensive [place]. Panel Fast Today E78.5 - Hyperlipidemia, unspecified XR ankle RT 2V Today G89.29 - Other chronic pain, M25.571 - Pain in right ankle and joints of right foot US breast LT complete Today N64.4 - Mastodynia Referrals Orthopedics Referral M24.271 - Disorder of ligament, right ankle Medications: New primidone 50 mg PO BEDTIME 30 days 30 tabs 3RF R25.1 - Tremor, unspecified Changed From linaclotide (Linzess) 145 mcg PO DAILY 30 days 30 caps 3RF K58.9 - Irritable bowel syndrome without diarrhea To linaclotide (Linzess) 145 mcg PO DAILY 90 days 90 caps 2RF K58.9 - Irritable bowel syndrome without diarrhea Refilled dicyclomine 20 mg PO QID 90 days 360 tabs 3RF K58.9 - Irritable bowel syndrome without diarrhea escitalopram oxalate 20 mg PO DAILY 90 tabs 2RF F41.1 - Generalized anxiety disorder gabapentin 800 mg PO TID 90 days 270 tabs 2RF M47.812 - Spondylosis without myelopathy or radiculopathy, cervical region montelukast 10 mg PO BEDTIME 90 days 90 tabs 3RF J30.9 - Allergic rhinitis, unspecified pantoprazole 40 mg PO DAILY 90 tabs 2RF K58.9 - Irritable bowel syndrome without diarrhea topiramate 100 mg PO BID 90 days 180 tabs 2RF G43.909 - Migraine, unspecified, not intractable, without status migrainosus atorvastatin 80 mg PO BEDTIME 90 days 90 tabs 2RF E78.5 - Hyperlipidemia, unspecified acetaminophen ER 650 mg PO TID 30 days PRN 90 tabs 2RF pain M48.9 - Spondylopathy, unspecified galcanezumab-gnlm (Emgality Pen) 120 mg subcut ONCE 4 weeks 1 mL 3RF G43.909 - Migraine, unspecified, not intractable, without status migrainosus sucralfate (Carafate) 1 g PO BID 90 days 180 tabs 2RF K21.00 - Gastro-esophageal reflux disease with esophagitis, without bleeding Coding Level of Care Code Est Pt Level 4 (00336) Diagnoses Gastroesophageal reflux disease with esophagitis, unspecified whether hemorrhage K21.00 Esophagitis bleeding: unspecified whether hemorrhage Esophagitis presence: with esophagitis Macrocytosis D75.89 Failed back syndrome, cervical M96.1 Tremor R25.1 Family history of breast cancer Z80.3 Primary insomnia F51.01 Insomnia type: primary Hyperlipidemia, unspecified hyperlipidemia type E78.5 Hyperlipidemia type: unspecified Left axillary pain M79.622 Breast pain, left N64.4 Chronic pain of right ankle M25.571; G89.29 Chronicity: chronic Disorder of ligament of right ankle M24.271
== END 2023-01-03 10:43 | disposition home or self-care (01) ==
PROVIDERS: Visit Provider Physician Assistant
DX: Z23 Encounter for immunization (principal)
CPT/HCPCS: 90471; 90686; 99214

== ENCOUNTER 2023-01-22 10:42 | Outpatient (REF) | payer MEDICARE, SELFPAY ==
--- NOTE | ~2023-01-22 | US_ITS ---
EXAMINATION: US DIAGNOSTIC ULTRASOUND BREAST, LEFT CLINICAL INFORMATION: 67-year-old female refusing mammogram. Complaining of left breast pain lateral aspect spanning from areola to tail of Guerra for a few months. Patient has family history of sister with breast cancer at age 42. No recent mammograms. COMPARISON: None available. TECHNIQUE: Ultrasound of the left breast is performed with real-time sanders scale imaging and color Doppler. Attention was given to the lateral region in the region of pain as directed by the patient. FINDINGS: There is no focal suspicious finding. There is no solid mass, architectural abnormality, duct ectasia, or edema in the soft tissue planes. There are normal appearing lymph nodes in the left axillary region. There is no abnormal parenchymal shadowing. There are no cystic abnormalities. US/US breast LT limited mamm only IMPRESSION: Normal examination. No evidence of malignancy left breast. No sonographic correlate to the region of breast pain in the lateral left breast extending to the tail of Guerra. Recommend clinical management of the patient's symptomatology. ASSESSMENT: BI-RADS 1: Negative RECOMMENDATION: 1. Patient should be managed based on the clinical impression. 2. Otherwise, encourage routine annual screening mammography. This patient's information was entered into a reminder system with a target due date for their next mammogram.
== END 2023-01-22 10:43 | disposition home or self-care (01) ==
LOC: HO.MAMMO 10:42
PROVIDERS: PCP Physician Assistant; Visit Provider Physician Assistant
DX: N64.4 Mastodynia (principal)
CPT/HCPCS: 76642

== ENCOUNTER → 2023-01-22 11:00 | Outpatient (BNV) | payer MEDICARE, SELFPAY | PROVIDERS: PCP Physician Assistant; Visit Provider Radiology Diagnostic Radiology | DX: N64.4 Mastodynia (principal) | CPT/HCPCS: 76642 ==

== ENCOUNTER 2023-06-04 08:18 | Outpatient (AMB) | payer MEDICARE, SELFPAY ==
[2023-06-04 08:28] VITALS: BP 114/70; PULSE 49; O2SAT 97; BMI 27.6
--- NOTE | 2023-06-04 08:28 | MHC.PC.OV ---
Vital Signs 06/04/23 08:28 Height 5 ft 1 in Weight 146 lb BMI 27.6 BP 114/70 Blood Pressure Location Lt brachial Position Sitting Pulse 49 L Pulse Source Pulse Oximeter Pulse Oximetry (%) 97 Oxygen Delivery Method Room Air Intake Visit Reasons: 6mth f/u Allergies morphine Allergy (Verified 06/04/23 08:43) Difficulty Breathing Medication List - Last Reconciled 06/04/23 by Coleman Romo PA-C acetaminophen ER 650 mg PO TID PRN 30 days atorvastatin 80 mg PO BEDTIME 90 days benzonatate 200 mg PO TID 5 days dicyclomine 20 mg PO QID 90 days escitalopram oxalate 20 mg PO DAILY gabapentin 800 mg PO TID 90 days galcanezumab-gnlm (Emgality Pen) 120 mg subcut ONCE 4 weeks linaclotide (Linzess) 145 mcg PO DAILY 90 days montelukast 10 mg PO BEDTIME 90 days pantoprazole 40 mg PO DAILY primidone 50 mg PO BEDTIME 30 days sucralfate (Carafate) 1 g PO BID 90 days topiramate 100 mg PO BID 90 days zolpidem 10 mg PO BEDTIME 30 days Tobacco use date assessed: 06/04/23 Fall risk assessment: No Falls in past year Last assessed Fall Risk: 06/04/23 Dental Screening Dental Screen Date: 06/04/23 Did you have a dental visit in the last 12 months?: Yes Did you have a dental problem in the last 6 months where you did not have access to dental care?: No Was dental information given to patient?: Patient has dentist HPI 6m f/u HPI Details Patient is a 67 old female here today for a follow-up visit Patient has a past medical history significant for generalized anxiety disorder, migraines, GERD, hyperlipidemia, lumbar and cervical disc disease. Concern--> she has followed up with a foot surgeon and had screws and alka removed from her ankle. Her pain and paresthesias have drastically reduced. Have noted progressive weight loss secondary to her dental issues and reduced ability to eat. She needs dental implant. PLAN: Will send for bone density to evaluate for osteoporosis. Essential tremor: Has been started on primidone 50 mg at bedtime which has drastically reduced her tremor. Cervical disc disease:? Patient is followed by [place] pain management and has received a spinal stimulator her cervical spine.? She is now off of all narcotic pain medication in doing very well. HLD: recently increased dose of atorvastatin - cholesterol much better. Has lost weight since last office visit .. Migraines:? Reports her migraines have been fairly stable, continues on Emgality and Topamax. Laboratory Tests 10/18/20 05/25/21 06/26/22 08:34 08:16 08:13 WBC 4.5 L 3.8 L Creatinine Cholesterol 206 LDL Cholesterol, C alc Folate 06/26/22 12/31/22 12/31/22 08:13 08:32 08:32 WBC 4.1 L Creatinine 0.99 Cholesterol 180 LDL Cholesterol, C alc 111 Folate 12/31/22 12/31/22 08:32 08:32 WBC Creatinine Cholesterol LDL Cholesterol, C alc 96 Folate 3.0 L PFSH Medical History COVID-19 vaccine series completed Chronic cough Hyperlipidemia GERD (gastroesophageal reflux disease) Migraines Anxiety IBS (irritable bowel syndrome) Tremor emt intermediate (current) use of opiate analgesic Spondylosis of cervical spine Failed back syndrome, cervical Left cervical radiculopathy Surgical History S/P insertion of spinal cord stimulator Hx of hysterectomy, total History of tonsillectomy and adenoidectomy History of surgery on arm Status post debridement History of ankle surgery Family History Sister Breast cancer, Onset Age: 42 Social History Household Members Other:: lives with , son and granddaughter Housing: House Are you a primary home care attendant to a significant other at home: No Do you presently have visiting nurse or other home services: No Alcohol intake: current Alcohol intake frequency: 0-2 drinks per day Alcohol type: wine Patient Tobacco Use Status: Never used Tobacco e-Cigarette/Vaping Use: Never Used Second Hand Smoke Exposure: No service: No Current occupational status: disabled 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 1. Little interest or pleasure in doing things: not at all 2. Feeling down, depressed, or hopeless: not at all 3. Trouble falling or staying asleep, or sleeping too much: not at all 4. Feeling tired or having little energy: not at all 5. Poor appetite or overeating: not at all 6. Feeling bad about yourself - or that you are a failure or have let yourself or your family down: not at all 7. Trouble concentrating on things, such as reading the newspaper or watching television: not at all 8. Moving or speaking so slowly that other people could have noticed. Or the opposite - being so fidgety or restless that you have been moving around a lot more than usual: not at all 9. Thoughts that you would be better off or of hurting yourself in some way: not at all Total score: 0 Depression Screening Interpretation: Negative Depression Screening Done: Yes 30793 - PHQ-9 Billing: Yes Source: Developed by Drs. Kyle Dao, Carmita Espinal, Rashard Burgess and colleagues, with an educational babita from [employer]. Thrive Questionnaire Date Thrive assessed: 06/04/23 I am a: Patient What is your living situation today?: I have a steady place to live Within the past 12 months, did the food you bought not last and you didn't have the money to get more?: Never true Within the past 12 months, did you worry whether your food would run out before you got money to buy more?: Never true Do you have trouble paying for medicines?: No Do you have trouble getting transportation to medical appointments?: No Do you have trouble paying your heating and electricity bill?: No Do you have trouble taking care of your child, family member or friend?: No Do you have trouble with day-to-day activities such as bathing, preparing meals, shopping, managing finances, etc.?: No Are you currently unemployed and looking for a job?: No Are you interested in more education?: No Currently or been in a relationship where the following occur: no concerns reported THRIVE Score: 0 AUDIT C Alcohol Use Questionnaire (AUDIT-C) 1. How often do you have a drink containing alcohol?: Never 3. How often do you have six or more drinks on one occasion?: Never Total Score: 0 ROSA ELENA-7 AMB Questionnaire ROSA ELENA-7 Date ROSA ELENA - 7 assessed: 06/04/23 Feeling nervous, anxious, or on edge: 0 = Not at all Not being able to stop or control worryin = Not at all Worrying too much about different things: 0 = Not at all Trouble relaxin = Not at all Being so restless that it is hard to sit still: 0 = Not at all Becoming easily annoyed or irritable: 0 = Not at all Feeling afraid as if something awful might happen: 0 = Not at all Total ROSA ELENA-7 score (0-4 normal; 5-9 mild; 10-14 moderate; 15-21 severe): 0 Source: Developed by Drs. Kyle Dao, Carmita Espinal, Rashard Burgess and colleagues, with an educational babita from [employer]. ROSA ELENA-7 Assessment Billing ROSA ELENA-7 Assessment Tool: ROSA ELENA-7 Assessment [id number] Review of Systems Const Denies headache(s) Eyes Denies loss of vision ENT Denies vertigo, Denies dizziness, Denies headache(s) and Denies sore throat Card Denies chest pain, Denies leg edema and Denies lightheadedness Resp Denies cough, Denies hemoptysis and Denies wheezing GI Denies abdominal pain, Denies melena, Denies constipation, Denies diarrhea and Denies vomiting Denies urinary frequency, Denies dysuria and Denies urinary urgency Musc Denies arthralgias, Denies joint swelling, Denies numbness and Denies tingling Neuro Denies Abnormal speech present, Denies behavioral changes, Denies vertigo, Denies dizziness, Denies headache(s), Denies loss of vision, Denies memory loss, Denies numbness and Denies tingling Psych Denies anxiety, Denies behavioral changes, Denies depression, Denies memory loss and Denies panic attacks Jesus/Lymph Denies easy bleeding and Denies easy bruising Aller/Immun Denies wheezing Physical exam (Primary Care) Vital Signs: Last Vital Signs Pulse 49 L 06/04/23 08:28 BP 114/70 06/04/23 08:28 Pulse Ox 97 06/04/23 08:28 Oxygen Delivery Method Room Air 06/04/23 08:28 BMI result Body Mass Index 27.6 Tobacco/Smoking Status: Tobacco use Status Tobacco use date assessed 06/04/23 06/04/23 08:32 Patient Tobacco Use Status Never used Tobacco 06/04/23 08:32 e-Cigarette/Vaping Use Never Used 06/04/23 08:32 PHQ-9: PHQ-9 Score PHQ-9: Total score 0 06/04/23 08:32 Depression Screening Interpretation: Negative Thrive Assessment: Date of Thrive Assessment Date Thrive assessed 06/04/23 06/04/23 08:32 Currently or been in a relationship where the following occur: no concerns reported Const General: healthy appearing, no acute distress, alert and awake Nutritional Appearance: well nourished Orientation/consciousness: oriented to person, oriented to place and oriented to time HENMT Ears: TM's normal bilaterally General nose exam: Normal nasal mucous membranes and turbinates present Eyes Conjunctivae: conjunctivae normal Sclerae: sclerae normal Pupils: Equal, round and reactive pupils present Neck Neck: Yes no lymphadenopathy and Yes no JVD Thyroid: Thyroid normal Carotids: no bruits Resp Effort & Inspection: normal respiratory effort and not tachypneic Auscultation: no crackles, no rales, no rhonchi and no wheezes Cardio Rate: regular rate Rhythm: regular rhythm Heart sounds: no murmurs and normal S1 and S2 GI Palpation (GI): Soft to palpation, nontender, no hepatomegaly and no splenomegaly Auscultation: normal bowel sounds Skin General skin exam: no rashes or lesions noted and dry skin Neuro General: oriented to person, oriented to place and oriented to time Cranial nerves: Yes Equal, round and reactive pupils present Speech: No Abnormal speech present Gait exam (Neuro): Normal gait present Motor exam (neuro): no tremor noted Extrem Right upper extremity: full ROM Left upper extremity: full ROM Right lower extremity: full ROM; no edema Left lower extremity: full ROM; no edema Psych Mental Status: mental status grossly normal Speech and movement: Normal speech and movement present Affect: normal affect Attitude: cooperative Thought process: Normal thought process present Assessment and Plan Assessment & Plan (1) GERD (gastroesophageal reflux disease): Code(s): K21.9 - Gastro-esophageal reflux disease without esophagitis Qualifiers: Esophagitis presence: with esophagitis Esophagitis bleeding: unspecified whether hemorrhage Qualified Code(s): K21.00 - Gastro-esophageal reflux disease with esophagitis, without bleeding Plan: Continues on PPI therapy without any worsening GERD symptoms. We have discussed perhaps taking a holiday from PPI therapy as I suspect she may have osteopenia versus osteoporosis. At this time patient would like stay on PPI therapy as she reports GERD symptoms if not on medication. (2) Failed back syndrome, cervical: Code(s): M96.1 - Postlaminectomy syndrome, not elsewhere classified Plan: Now off of all narcotic pain medications. Has back stimulation device. Continues on gabapentin with good relief her back pain. (3) Tremor: Code(s): R25.1 - Tremor, unspecified Plan: Since starting primidone her tremor has drastically reduced.. (4) Insomnia: Code(s): G47.00 - Insomnia, unspecified Qualifiers: Insomnia type: primary Qualified Code(s): F51.01 - Primary insomnia Plan: Continues on nightly use zolpidem 10 mg with good effect on sleep. (5) HLD (hyperlipidemia): Code(s): E78.5 - Hyperlipidemia, unspecified Qualifiers: Hyperlipidemia type: unspecified Qualified Code(s): E78.5 - Hyperlipidemia, unspecified Plan: Patient continues on statin therapy without any side effect. Most recent lipid panel showing appropriate LDL. Goal LDL to be below 130 (6) Postmenopausal: Code(s): Z78.0 - Asymptomatic menopausal state Plan: Recently seen dentist and was told she had bone mineralization in her jaw. Has had bone density years ago reports osteopenia. Will send for bone density to evaluate for osteoporosis. Advised on starting vitamin-D supplementation. Orders: Orders XR DEXA axial skeleton Today Z78.0 - Asymptomatic menopausal state Medications: New cholecalciferol (vitamin D3) 50 mcg PO DAILY 90 days 90 caps 1RF E55.9 - Vitamin D deficiency, unspecified, Z78.0 - Asymptomatic menopausal state Changed From primidone 50 mg PO BEDTIME 30 days 30 tabs 3RF R25.1 - Tremor, unspecified To primidone 50 mg PO BEDTIME 90 days 90 tabs 2RF R25.1 - Tremor, unspecified Refilled acetaminophen ER 650 mg PO TID 30 days PRN 90 tabs 2RF pain M48.9 - Spondylopathy, unspecified atorvastatin 80 mg PO BEDTIME 90 days 90 tabs 2RF E78.5 - Hyperlipidemia, unspecified gabapentin 800 mg PO TID 90 days 270 tabs 2RF M47.812 - Spondylosis without myelopathy or radiculopathy, cervical region galcanezumab-gnlm (Emgality Pen) 120 mg subcut ONCE 4 weeks 1 mL 3RF G43.909 - Migraine, unspecified, not intractable, without status migrainosus linaclotide (Linzess) 145 mcg PO DAILY 90 days 90 caps 2RF K58.9 - Irritable bowel syndrome without diarrhea zolpidem 10 mg PO BEDTIME 30 days 30 tabs 5RF Sleep F51.01 - Primary insomnia dicyclomine 20 mg PO QID 90 days 360 tabs 3RF K58.9 - Irritable bowel syndrome without diarrhea escitalopram oxalate 20 mg PO DAILY 90 tabs 2RF F41.1 - Generalized anxiety disorder montelukast 10 mg PO BEDTIME 90 days 90 tabs 3RF J30.9 - Allergic rhinitis, unspecified sucralfate (Carafate) 1 g PO BID 90 days 180 tabs 2RF K21.00 - Gastro-esophageal reflux disease with esophagitis, without bleeding Discontinued benzonatate Discontinued Reason: Doctor's Order 200 mg PO TID 5 days 15 caps 0RF R05.9 - Cough, unspecified Coding Level of Care Code Est Pt Level 4 (19412) Diagnoses Gastroesophageal reflux disease with esophagitis, unspecified whether hemorrhage K21.00 Esophagitis presence: with esophagitis Esophagitis bleeding: unspecified whether hemorrhage Failed back syndrome, cervical M96.1 Tremor R25.1 Primary insomnia F51.01 Insomnia type: primary Hyperlipidemia, unspecified hyperlipidemia type E78.5 Hyperlipidemia type: unspecified Postmenopausal Z78.0 Additional Codes ROSA ELENA-7 Assessment Billing - ROSA ELENA-7 Assessment Tool: ROSA ELENA-7 Assessment [id number] ([id number])
== END 2023-06-04 09:17 | disposition home or self-care (01) ==
PROVIDERS: PCP Physician Assistant; Visit Provider Physician Assistant
DX: K21.00 Gastro-esophageal reflux disease with esophagitis, without bleeding (principal); M96.1 Postlaminectomy syndrome, not elsewhere classified; R25.1 Tremor, unspecified; F51.01 Primary insomnia; E78.5 Hyperlipidemia, unspecified; Z78.0 Asymptomatic menopausal state
CPT/HCPCS: 99214

== ENCOUNTER 2023-06-19 09:48 | Outpatient (REF) | payer MEDICARE, MEDICAID, SELFPAY ==
--- NOTE | ~2023-06-19 | MM_ITS ---
EXAMINATION: BONE DENSITOMETRY CLINICAL INDICATION: Menopause. COMPARISON: This is the patient's baseline examination. TECHNIQUE: Using a [employer] DXA System (software version: 13.1) manufactured by [employer], dual-energy x-ray absorptiometry was performed of the lumbar spine and left hip. The images are of good technical quality. Summary results are attached. FINDINGS: LEFT FEMUR, NECK: BMD 0.758 g/cm2, Z-score -0.4, T-score -2.0, osteopenia. LEFT FEMUR, TOTAL: BMD 0.739 g/cm2, Z-score -0.7, T-score -2.1, osteopenia. AP SPINE L1-L4: BMD 1.127 g/cm2, Z-score 1.2, T-score -0.4, normal. IDENTIFIED RISK FACTORS: Early menopause, family history (parent hip fracture), bilateral oophorectomy, history of fracture (adult), hysterectomy, low calcium intake, secondary osteoporosis. HISTORY OF FRACTURE: Other. MEDICATIONS: None listed. MM/XR DEXA axial skeleton IMPRESSION: 1. DIAGNOSIS: Osteopenia based on the lowest T-score value of -2.1 in the total femur applying World Health Organization criteria. 2. 10-YEAR FRACTURE RISK PREDICTION, FRAX: Major osteoporotic fracture (clinical spine, forearm, hip or shoulder) 28.8%. Hip fracture 7.1%. 3. Treatment Recommendations: NOF guidelines recommend consideration for treatment in postmenopausal women and men age 50 and older presenting with the following: -A hip or vertebral (clinical or morphometric) fracture. -T-score less than or equal to -2.5 at the femoral neck or spine after appropriate evaluation to exclude secondary causes. -Low bone mass at the hip or spine and a 10-year fracture probability by FRAX of greater than or equal to 3% for hip fracture or greater than or equal to 20% for major osteoporotic fracture based on the [place] adapted WHO algorithm. 4. Other Recommendations: All treatment decisions require clinical judgment and consideration of individual patient factors, including patient preferences, comorbidities, previous drug use, risk factors not captured in the FRAX model (e.g. frailty, falls, vitamin D deficiency, increased bone turnover, interval significant decline in bone density) and possible under or overestimation of fracture risk by FRAX. Additional medical evaluation for secondary cause of low bone mineral density may be appropriate. FUTURE SCAN RECOMMENDATION: People with diagnosed cases of osteoporosis or at high risk for fracture should have regular bone mineral density tests. For patients eligible for Medicare, routine testing is allowed once every 2 years. The testing frequency can be increased to one year for patients who have rapidly progressing disease, those who are receiving or discontinuing medical therapy to restore bone mass, or have additional risk factors.
== END 2023-06-19 09:49 | disposition home or self-care (01) ==
LOC: HO.MAMMO 09:48
PROVIDERS: PCP Physician Assistant; Visit Provider Physician Assistant
DX: Z13.820 Encounter for screening for osteoporosis (principal); Z78.0 Asymptomatic menopausal state
CPT/HCPCS: 77080

== ENCOUNTER 2023-10-12 07:57 | Outpatient (REF) | payer MEDICARE, MEDICAID, SELFPAY ==
[2023-10-12 11:17] LABS: Appearance Urine Clear; Color Urine Yellow; Glucose Urine UA Negative (Negative); Leukocyte Esterase Urine Negative (Negative); Nitrite Urine Negative (Negative); PH 5.5 (5.0-9.0); Urine Blood Negative (Negative); Urine Ketones Negative (Negative); Urine Protein Trace mg/dL (Neg-Trace)
[2023-10-12 11:30] LABS: Hematocrit 39.4 % (37.0-47.0); Hemoglobin 12.8 g/dl (12.0-16.0); Mean Corpuscular HGB Conc 32.5 g/dl (31.0-35.0); Mean Corpuscular Hemoglobin 30.9 pg (27.0-33.0); Mean Corpuscular Volume 95.2 fL (80.0-98.0); Mean Platelet Volume 11.7 fL (9.4-12.3); Platelet Count 219 X10*3/uL (160-400); Red Blood Count 4.14 X10*6/uL (4.20-5.50); Red Cell Distribution Width 13.8 % (11.0-16.0); White Blood Count 3.5 X10*3/uL (4.8-10.8)
[2023-10-12 11:50] LABS: Alanine Aminotransferase 38 U/L (0-31); Alkaline Phosphatase 105 U/L (39-117); Anion Gap 14 (12-20); Aspartate Amino Transferase 30 U/L (5-31); Bilirubin Total 0.4 mg/dL (0.0-1.0); Blood Urea Nitrogen 13 mg/dL (9-16); Calcium 9.3 mg/dL (8.4-10.2); Carbon Dioxide 22 mmol/L (22-29); Chloride 112 mmol/L (96-108); Cholesterol 172 mg/dL (<200); Estimated Glomerular Filt Rate 58; Glucose Fasting 90 mg/dL (60-99); HDL Cholesterol 60 mg/dL (>40); LDL Cholesterol Calculated 93 mg/dL (<100); Potassium 3.8 mmol/L (3.3-5.1); Sodium 144 mmol/L (135-145); Total Protein 5.8 g/dL (6.5-8.0); Triglycerides 99 mg/dL (<150)
== END 2023-10-12 07:58 | disposition home or self-care (01) ==
LOC: HO.HMGCLDS 07:57
PROVIDERS: PCP Physician Assistant; Visit Provider Physician Assistant
DX: R30.0 Dysuria (principal); E78.5 Hyperlipidemia, unspecified; K21.00 Gastro-esophageal reflux disease with esophagitis, without bleeding
CPT/HCPCS: 36415; 80053; 80061; 81003; 85027

== ENCOUNTER 2023-10-31 09:13 | Outpatient (AMB) | payer MEDICARE, MEDICAID, SELFPAY ==
[2023-10-31 09:28] VITALS: BP 110/68; PULSE 67; O2SAT 97; BMI 25.6
--- NOTE | 2023-10-31 09:28 | MHC.PC.OV ---
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 Accompanied by: Self / Same As Patient Allergies morphine Allergy (Verified 06/04/23 08:43) Difficulty Breathing Tobacco use date assessed: 06/04/23 Dental Screening Dental Screen Date: 06/04/23 [facility] Medical History COVID-19 vaccine series completed Chronic cough Hyperlipidemia GERD (gastroesophageal reflux disease) Migraines Anxiety IBS (irritable bowel syndrome) 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 Spondylosis of cervical spine Failed back syndrome, cervical Left cervical radiculopathy Surgical History S/P insertion of spinal cord stimulator Hx of hysterectomy, total History of tonsillectomy and adenoidectomy History of surgery on arm Status post debridement History of ankle surgery Family History Sister Breast cancer, Onset Age: 42 Social History Household Members Other:: lives with , son and granddaughter Housing: House Are you a primary care nurse rn to a significant other at home: No Do you presently have visiting nurse or other home services: No Alcohol intake: current Alcohol intake frequency: 0-2 drinks per day Alcohol type: wine Patient Tobacco Use Status: Never used Tobacco e-Cigarette/Vaping Use: Never Used Second Hand Smoke Exposure: No service: No Current occupational status: disabled 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 Kyle Dao, Carmita Espinal, Rashard Burgess and colleagues, with an educational babita from [employer]. Physical exam (Primary Care) Tobacco/Smoking Status: Tobacco use Status Tobacco use date assessed 06/04/23 06/04/23 08:32 Patient Tobacco Use Status Never used Tobacco 06/04/23 08:32 e-Cigarette/Vaping Use Never Used 06/04/23 08:32 Thrive Assessment: Date of Thrive Assessment Date Thrive assessed 06/04/23 06/04/23 08:32 Coding
--- NOTE | 2023-10-31 09:36 | A.OFFVIS_ITS ---
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 Today she does report having some neck pain and is requesting a short-term script for muscle relaxer. Today we discussed patient's [place] of care and given MOLST form as part end of life planning.. We did complete the chronic care plans Colonoscopy: Has with Dr Pereira at [facility] 2017- repeat 10 years. Vaccines:? Up-to-date with COVID vaccine, up-to-date with pneumonia vaccine. UTD with FLu, Needs Td- declines Mammogram: Declines to get Mammo even though she does have a family history of a sister with breast cancer at 42. HPI Comments History of Present Illness Details reviewed past medical history- yes reviewed surgical / hospitalization history- yes reviewed current medications- yes reviewed family history- yes home safety throw rugs? grab bars? raised toilet seat? working smoke detectors? activities of daily living difficulty bathing or showering? difficulty dressing? difficulty using the toilet? difficulty getting in and out of bed? difficulty walking? receives help from other person's with any of the above tasks? instrumental activities of daily living uses telephone - gets to place out of walking distance- go shopping for groceries- repairs own meals- does own minor home maintenance- does own laundry- does own housework- manages own money- currently takes medication- end of life planning discussed advanced directives- yes advanced directives on file? discussed wishes expressed in advanced directives. fall risk have you had any falls with injuries in the past year? have you had 2 or more falls in the past year? fall risk assessment: [facility] Medical History COVID-19 vaccine series completed Chronic cough Hyperlipidemia GERD (gastroesophageal reflux disease) Migraines Anxiety IBS (irritable bowel syndrome) Tremor rn long term care (current) use of opiate analgesic Spondylosis of cervical spine Failed back syndrome, cervical Left cervical radiculopathy Surgical History S/P insertion of spinal cord stimulator Hx of hysterectomy, total History of tonsillectomy and adenoidectomy History of surgery on arm Status post debridement History of ankle surgery Family History Sister Breast cancer, Onset Age: 42 Social History Household Members Other:: lives with , son and granddaughter Housing: House Are you a primary home care specialist to a significant other at home: No Do you presently have visiting nurse or other home services: No Alcohol intake: current Alcohol intake frequency: 0-2 drinks per day Alcohol type: wine Patient Tobacco Use Status: Never used Tobacco e-Cigarette/Vaping Use: Never Used Second Hand Smoke Exposure: No service: No Current occupational status: disabled 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 Cognitive needs: No Hearing needs: No Vision needs: Yes (glasses) Questionnaire Medicare Wellness Checkup [age] What gender do you identify with?: female During the past 4 weeks, how much have you been bothered by emotional problems such as feeling anxious, depressed, irritable, sad or downhearted, and blue?: not at all During the past 4 weeks, has your physical & emotional health limited your social activities with family, friends, neighbors, or groups?: not at all During the past 4 weeks, how much bodily pain have you generally had?: mild pain During the past 4 weeks, was someone available to help you if you needed & wanted help?: yes, as much as I wanted During the past 4 weeks, what was the hardest physical activity you could do for at least 2 minutes?: moderate Can you get to places out of walking distance without help? (For eg., can you travel alone on buses, taxis or drive your car?): Yes Can you go shopping for groceries or clothes without someone's help?: Yes Can you prepare your own meals?: Yes Can you do your housework without help?: Yes Because of any health problems, do you need the help of another person with your personal care needs such as eating, bathing, dressing or getting around the house?: No Can you handle your own money without help?: Yes During the past 4 weeks, how would you rate your health in general?: very good During the past 4 weeks how have things been going for you?: very well; could hardly better Are you having difficulties driving your car?: not applicable, I don't use a car Do you always fasten your seat belt when you are in a car?: yes, usually During past 4 weeks, have you been bothered by the following: never: Falling or dizzy when standing up, Sexual problems?, Trouble eating well?, Problems using the telephone? and Tiredness or fatigue? and always: Teeth or denture problems? Have you fallen 2 or more times in the past year?: No Are you afraid of falling?: No Are you a smoker?: no During the past 4 weeks, how many drinks of wine, beer, or other alcoholic beverages did you have?: no alcohol at all Do you exercise for about 20 minutes 3 or more times a week?: yes, all the time Have you been given information to help with the following?: yes: Keeping track of your medications? and no: Hazards in your house that might hurt you? How often do you have trouble taking medicines the way you have been told to take them?: I always take medicine as prescribed How confident are you that you can control & manage most of your health problems?: very confident What is your race?: White Mini Mental State Exam (MMSE) Orientation What is the (year) (season) (date) (day) (month)?: season Where are we (state) (county) (town or city) (hospital) (floor)?: town or city Attention & Calculation (CHOOSE ONE) Ask pt to begin with 100 & count backward by 7. Stop after 5 repeats. If pt cannot ask them to spell the word WORLD backward.: 93 Spell WORLD backwards (DLROW): 5 letters Score Score: 8 Activity of Daily Living Bathing - sponge bath, tub bath or shower: receives no assistance (gets in/out by self, if usual bathing means Dressing - getting clothes from closets & drawers, including inner/outer garments & fasteners.: gets clothes & gets completely dressed without help Toileting - going to the 'toilet room' for urine/bowel elimination & cleaning self/arranging clothes: goes to toilet room, cleans self, arranges clothes without help Transfer: moves in & out of bed and chair without help (may use support object) Continence: controls urination/bowel movements completely by self Feeding: feeds self without help Total Score: 0 Information obtained from: patient Using telephone: independent Traveling: independent Shopping: independent Preparing meals: independent Housework: independent Taking medicine: independent Managing money: independent PHQ-9 Over the last 2 weeks, how often have you been bothered by any of the following problems? 1. Little interest or pleasure in doing things: not at all 2. Feeling down, depressed, or hopeless: not at all 3. Trouble falling or staying asleep, or sleeping too much: not at all 4. Feeling tired or having little energy: not at all 5. Poor appetite or overeating: not at all 6. Feeling bad about yourself - or that you are a failure or have let yourself or your family down: not at all 7. Trouble concentrating on things, such as reading the newspaper or watching television: not at all 8. Moving or speaking so slowly that other people could have noticed. Or the opposite - being so fidgety or restless that you have been moving around a lot more than usual: not at all 9. Thoughts that you would be better off or of hurting yourself in some way: not at all Total score: 0 Depression Screening Interpretation: Negative Depression Screening Done: Yes 30452 - PHQ-9 Billing: Yes Source: Developed by Drs. Kyle Dao, Carmita Espinal, Rashard Burgess and colleagues, with an educational babita from [employer]. Physical Exam Vital Signs: Last Vital Signs Pulse 67 10/31/23 09:28 BP 110/68 10/31/23 09:28 Pulse Ox 97 10/31/23 09:28 Oxygen Delivery Method Room Air 10/31/23 09:28 BMI result Body Mass Index 25.6 HEENT Other: hearing screening whisper test- PASS Eyes Other: vision screening-20 20 OS OD OU Neck Other: SOME LIMITED RANGE OF MOTION OF THE NECK DUE TO PAIN AND STIFFNESS. DOES HAVE A LIDOCAINE PATCH OVER THE POSTERIOR ASPECT OF HER NECK. Other: urinary incontinence? NO Neuro Other: balance Romberg- NORMAL tandem walk test- ABLE walk-in turned test- ABLE rise from sit to stand- WITHIN 2 SECONDS Assessment & Plan Assessment & Plan (1) Encounter for annual wellness visit (AWV) in Medicare patient: Code(s): Z00.00 - Encounter for general adult medical examination without abnormal findings Plan: As per HPI (2) Cervical spine disease: Code(s): M48.9 - Spondylopathy, unspecified Plan: Reports tweaking her neck and has been having some pain. She is interested in a muscle relaxer. Orders: Orders Comprehensive [place]. Panel Fast Today E78.5 - Hyperlipidemia, unspecified Complete Blood Count no Diff Today E78.5 - Hyperlipidemia, unspecified Lipid Panel Today E78.5 - Hyperlipidemia, unspecified Medications: New cyclobenzaprine 5 mg PO BID 5 days PRN 10 tabs 0RF muscle spasm M48.9 - Spon dylopathy, unspecified Quality Reporting (2019) Depression/Bipolar (159/160/161/177) PHQ-9: Total score: 0 Coding Level of Care Code Medicare First (G0438) Est Pt Level 3 (78200) Diagnoses Encounter for annual wellness visit (AWV) in Medicare patient Z00.00 Cervical spine disease M48.9 CPT Codes Advance Care Planning - Time spent: 1-15 minutes, not on file ([id number]) Advance Care Planning Advance Care Planning discussion: Exists, not on file Date of discussion: 10/31/23 Forms completed: MOLST Time spent: 1-15 minutes, not on file Actual minutes spent: 4
[2023-10-31 09:40] VITALS: BMI 25.6
== END 2023-10-31 10:27 | disposition home or self-care (01) ==
PROVIDERS: PCP Physician Assistant; Visit Provider Physician Assistant
DX: Z00.00 Encounter for general adult medical examination without abnormal findings (principal); M48.9 Spondylopathy, unspecified
CPT/HCPCS: 1124F; G0438

== ENCOUNTER 2024-01-15 14:49 | Outpatient (AMB) | payer MEDICARE, MEDICAID, SELFPAY ==
--- NOTE | 2024-01-15 14:52 | MHC.OFFVIS ---
Vital Signs 01/15/24 15:12 Height 5 ft 1 in Weight 136 lb 4 oz BMI 25.7 BP 138/86 Blood Pressure Location Lt brachial Position Sitting Respiration 14 Pulse 63 Pulse Source Pulse Oximeter Pulse Oximetry (%) 98 Oxygen Delivery Method Room Air Intake Visit Reasons: Spondylopathy, unspecified Intake Note: Patient comes in to discuss neck pain. Reports pain 11/01. Allergies morphine Allergy (Verified 10/31/23 09:37) Difficulty Breathing HPI Comments Details: Ms. Corea is in the office today after 3 years of absence. She has cervical implanted spinal cord stimulator. Somehow patient was under impression that spinal cord stimulator was implanted to treat her lower back pain. She does not complain today on lower back pain she complains on pain in the neck. And yet my notes and the images are positive that she had [employer] cervical implanted spinal cord stimulator. Patient is just confused. I recommended her to contact [employer] representative and try to play with the device. At the same time I will send her for the x-ray of the cervical spine 6 views to evaluate the position of spinal cord stimulator. If the positioned will be inappropriate I would need to revision the spinal cord stimulator. I will see this patient as soon as she will obtain the x-ray of the cervical spine. Prior: implant of cervical spinal cord stimulator [employer].? She reports complete pain relief.? She reports better mobility.? Better social interaction better activities of daily living.? She continues to were abdominal binder.? She continues to were cervical collar.? She is doing very good.? [place] removed today the wounds are healing perfectly. The patient is doing very well.? History of cervicalgia with radiation into the thoracic spine and to the left scapula.? She also reports radiation of the pain to the left elbow and left arm.? The radiation she reports on posterior surface of the arm. She relates this pain to the trauma she received after fall in 2007. She was a patient with [facility] pain management and she received numerous injections there.? I received records of facet joint injections in her neck.? She was requesting them to perform radiofrequency ablation on her neck and she was told that she is not a good candidate.? She was approved for trial of spinal cord stimulator by [facility].? [facility] Medical History COVID-19 vaccine series completed Chronic cough Hyperlipidemia GERD (gastroesophageal reflux disease) Migraines Anxiety IBS (irritable bowel syndrome) Tremor nursing home (current) use of opiate analgesic Spondylosis of cervical spine Failed back syndrome, cervical Left cervical radiculopathy Surgical History S/P insertion of spinal cord stimulator Hx of hysterectomy, total History of tonsillectomy and adenoidectomy History of surgery on arm Status post debridement History of ankle surgery Family History Sister Breast cancer, Onset Age: 42 Social History Household Members Other:: lives with , son and granddaughter Housing: House Are you a primary childbirth and infant care teacher to a significant other at home: No Do you presently have visiting nurse or other home services: No Alcohol intake: current Alcohol intake frequency: 0-2 drinks per day Alcohol type: wine Patient Tobacco Use Status: Never used Tobacco e-Cigarette/Vaping Use: Never Used Second Hand Smoke Exposure: No service: No Current occupational status: disabled 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 Cognitive needs: No Hearing needs: No Vision needs: Yes (glasses) Physical Exam Vital Signs: Last Vital Signs Pulse 63 01/15/24 15:12 Resp 14 01/15/24 15:12 BP 138/86 01/15/24 15:12 Pulse Ox 98 01/15/24 15:12 Oxygen Delivery Method Room Air 01/15/24 15:12 BMI result Body Mass Index 25.7 Assessment & Plan Assessment & Plan (1) Spinal cord stimulator dysfunction: Code(s): T85.192A - Other mechanical complication of implanted electronic neurostimulator of spinal cord electrode (lead), initial encounter Category: Medical (2) Spondylosis of cervical spine: Code(s): M47.812 - Spondylosis without myelopathy or radiculopathy, cervical region Category: Medical (3) 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 However on it is not sure her spinal cord stimulator was established in the neck. The order was made to perform x-ray of the cervical spine minimal 6 views. The patient needs to go for this procedure cathi. She also will contact [employer] representatives and able tried to play with spinal cord stimulator in the attempt to establish good stimulating pattern. When her x-ray will be done she needs to give us a call and we will schedule appointment with her to assess her pain control. 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
[2024-01-15 15:12] VITALS: BP 138/86; PULSE 63; RESP 14; O2SAT 98; BMI 25.7
== END 2024-01-15 16:03 | disposition home or self-care (01) ==
PROVIDERS: PCP Physician Assistant; Visit Provider Anesthesiology
DX: T85.192A Other mechanical complication of implanted electronic neurostimulator of spinal cord electrode (lead), initial encounter (principal); M47.812 Spondylosis without myelopathy or radiculopathy, cervical region; Z79.891 Long term (current) use of opiate analgesic
CPT/HCPCS: 99213

== ENCOUNTER → 2024-01-15 14:49 | Outpatient (BNVA) | payer MEDICARE, MEDICAID, SELFPAY | PROVIDERS: PCP Physician Assistant; Visit Provider Anesthesiology | DX: T85.192A Other mechanical complication of implanted electronic neurostimulator of spinal cord electrode (lead), initial encounter (principal); M47.812 Spondylosis without myelopathy or radiculopathy, cervical region; Z79.891 Long term (current) use of opiate analgesic | CPT/HCPCS: 99212 ==

== ENCOUNTER 2024-01-21 13:04 | Outpatient (REF) | payer MEDICARE, MEDICAID, SELFPAY ==
--- NOTE | ~2024-01-21 | XR_ITS ---
EXAMINATION: XR CERVICAL SPINE CLINICAL INFORMATION: T85.192A - Other mechanical complication of implanted electronic neurost... COMPARISON: None available. TECHNIQUE: AP, lateral, bilateral oblique views cervical spine. FINDINGS: There is mild osteopenia. Spinal stimulator device is in place in the midline dorsal epidural space, tip of the electrodes seen at the inferior aspect of the C1 arch, with inferior mostly seen abutting the inferior C4 neural arch. No compression deformities or fractures. Minimal degenerative retrolisthesis of C3 on C4. Alignment otherwise anatomic. There is a minimal right convex scoliosis. There is mild straightening of the normal lordosis. Severe disc degeneration present at C3-4, with mild disc degeneration at the other levels. Facets are normally aligned with mild multilevel hypertrophic facet changes. Oblique views demonstrate moderate neural foraminal narrowing on the right at C4-5. Foramina otherwise appear patent. Significant degenerative atlantoaxial joint changes present. The joint is normally aligned. Craniocervical junction is intact. There is no prevertebral paravertebral soft tissue abnormality. XR/XR cervical spine 4V IMPRESSION: 1. Mild osteopenia. No acute findings of the cervical spine. 2. Degenerative spondylosis most significant C3-4. 3. Spinal stimulator device in the dorsal epidural space with lead spanning the neural arches of C1-C4. Electronically signed by: Ger Fall MD 02/24/2024 03:19 PM [facility]
== END 2024-01-21 13:05 | disposition home or self-care (01) ==
LOC: HO.HMGCX 13:04
PROVIDERS: PCP Physician Assistant; Visit Provider Anesthesiology
DX: T85.192A Other mechanical complication of implanted electronic neurostimulator of spinal cord electrode (lead), initial encounter (principal)
CPT/HCPCS: 72050

== ENCOUNTER → 2024-01-21 13:07 | Outpatient (BNV) | payer MEDICARE, MEDICAID, SELFPAY | PROVIDERS: PCP Physician Assistant; Visit Provider Radiology Diagnostic Radiology | DX: T85.192A Other mechanical complication of implanted electronic neurostimulator of spinal cord electrode (lead), initial encounter (principal) | CPT/HCPCS: 72050 ==

== ENCOUNTER 2024-05-04 08:02 | Outpatient (REF) | payer MEDICARE, MEDICAID, SELFPAY ==
[2024-05-04 10:08] LABS: Hematocrit 40.6 % (37.0-47.0); Hemoglobin 13.1 g/dl (12.0-16.0); Mean Corpuscular HGB Conc 32.3 g/dl (31.0-35.0); Mean Platelet Volume 11.7 fL (9.4-12.3); Platelet Count 203 X10*3/uL (160-400); Red Blood Count 4.23 X10*6/uL (4.20-5.50); Red Cell Distribution Width 13.9 % (11.0-16.0); White Blood Count 3.7 X10*3/uL (4.8-10.8)
[2024-05-04 10:15] LABS: Appearance Urine Clear; Color Urine Yellow; Glucose Urine UA Negative (Negative); Leukocyte Esterase Urine Trace (Negative); Nitrite Urine Negative (Negative); PH 6.5 (5.0-9.0); Specific Gravity - Urine <= 1.005 (1.005-1.025); UMIC TRIGGER UACC YES; Urine Blood Negative (Negative); Urine Ketones Negative (Negative); Urine Protein Negative (Neg-Trace)
[2024-05-04 10:19] LABS: Bacteria Urine None Seen (None Seen); Hyaline Casts Urine 0-2 /LPF (0-2); RBC Urine 0-2 /HPF (0-2); Squamous Epithelial Cell Urine 0-2 /HPF (0-2); WBC Urine 0-5 /HPF (0-5)
[2024-05-04 10:30] LABS: Alanine Aminotransferase 22 U/L (0-31); Albumin Level 4.3 g/dL (3.5-5.0); Alkaline Phosphatase 109 U/L (39-117); Anion Gap 11 (12-20); Aspartate Amino Transferase 24 U/L (5-31); Bilirubin Total 0.4 mg/dL (0.0-1.0); Blood Urea Nitrogen 9 mg/dL (9-16); Calcium 9.4 mg/dL (8.4-10.2); Carbon Dioxide 23 mmol/L (22-29); Chloride 116 mmol/L (96-108); Cholesterol 189 mg/dL (<200); Estimated Glomerular Filt Rate 59; Glucose Fasting 92 mg/dL (60-99); HDL Cholesterol 72 mg/dL (>40); LDL Cholesterol Calculated 96 mg/dL (<100); Sodium 146 mmol/L (135-145); Total Protein 6.6 g/dL (6.5-8.0); Triglycerides 106 mg/dL (<150)
== END 2024-05-04 08:03 | disposition home or self-care (01) ==
LOC: HO.HMGCLDS 08:02
PROVIDERS: PCP Physician Assistant; Visit Provider Physician Assistant
DX: Z01.818 Encounter for other preprocedural examination (principal); N30.00 Acute cystitis without hematuria; E78.5 Hyperlipidemia, unspecified; G43.009 Migraine without aura, not intractable, without status migrainosus; T85.192S Other mechanical complication of implanted electronic neurostimulator of spinal cord electrode (lead), sequela
CPT/HCPCS: 36415; 80053; 80061; 81001; 81003; 85027; 96127; 99212

== ENCOUNTER 2024-05-04 15:12 | Outpatient (AMB) | payer MEDICARE, MEDICAID, SELFPAY ==
[2024-05-04 15:35] VITALS: BP 140/90; PULSE 50; TEMP 36.2; O2SAT 97; BMI 24.8
--- NOTE | 2024-05-04 15:35 | MHC.PC.OV ---
Vital Signs 05/04/24 15:35 05/04/24 16:00 Height 5 ft 1 in Weight 131 lb 8 oz BMI 24.8 BP 140/90 H 138/80 Blood Pressure Location Lt brachial Position Sitting Pulse 50 Pulse Source Pulse Oximeter Temp 97.1 F Temp Source Temporal Artery Scan Pulse Oximetry (%) 97 Oxygen Delivery Method Room Air Intake Visit Reasons: [facility] cataract surgery rt 05/14 lt 05/26 Nnp Required: No Accompanied by: Spouse Allergies morphine Allergy (Verified 05/04/24 15:51) Difficulty Breathing Medication List - Last Reconciled 05/04/24 by Coleman Romo PA-C acetaminophen ER 650 mg PO TID PRN 30 days atorvastatin 80 mg PO BEDTIME 90 days cholecalciferol (vitamin D3) 50 mcg PO DAILY 90 days dicyclomine 20 mg PO QID 90 days escitalopram oxalate 20 mg PO DAILY gabapentin 800 mg PO TID 90 days galcanezumab-gnlm (Emgality Pen) 120 mg subcut ONCE 4 weeks linaclotide (Linzess) 145 mcg PO DAILY 90 days montelukast 10 mg PO BEDTIME 90 days nitrofurantoin monohyd/m-cryst 100 mg (Macrobid) 100 mg PO Q12H 5 days pantoprazole 40 mg PO DAILY primidone 50 mg PO BEDTIME 90 days sucralfate (Carafate) 1 g PO BID 90 days topiramate 100 mg PO BID 90 days zolpidem 10 mg PO BEDTIME 30 days Tobacco use date assessed: 05/04/24 Fall risk assessment: No Falls in past year Last assessed Fall Risk: 05/04/24 Dental Screening Dental Screen Date: 05/04/24 Did you have a dental visit in the last 12 months?: Yes Did you have a dental problem in the last 6 months where you did not have access to dental care?: No Was dental information given to patient?: Patient has dentist HPI [facility] cataract surgery rt 05/14 lt 05/26 HPI Details Patient is a 68 old female here today for preop visit. Patient has a past medical history significant for generalized anxiety disorder, migraines, GERD, hyperlipidemia, lumbar and cervical disc disease. Patient has no past medical history significant for [place], Congestive heart failure or CVA. She has not any any anticoagulation or antiplatelet therapy. Concern--> she reports she has had a UTI over the last few weeks. Has been started on nitrofurantoin over last week which has been helpful. She does report feeling a bit of burning with urination. Otherwise no gross hematuria fevers etc.. CHRONIC MEDICAL CONDITIONS-- > Essential tremor: Has been started on primidone 50 mg at bedtime which has drastically reduced her tremor. Cervical disc disease:? Patient is followed by [facility] and has received a spinal stimulator her cervical spine.? She is now off of all narcotic pain medication in doing very well. HLD: Most recent lipid panel showing excellent control over total cholesterol and LDL. She still has slight mild elevation in her triglycerides .. Migraines:? Reports her migraines have been fairly stable, continues on Emgality and Topamax. 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 Spondylosis of cervical spine Failed back syndrome, cervical Left cervical radiculopathy Surgical History S/P insertion of spinal cord stimulator Hx of hysterectomy, total History of tonsillectomy and adenoidectomy History of surgery on arm Status post debridement History of ankle surgery Family History Sister Breast cancer, Onset Age: 42 Social History Household Members Other:: lives with , son and granddaughter Housing: House Are you a primary ocular care technician to a significant other at home: No Do you presently have visiting nurse or other home services: No Alcohol intake: current Alcohol intake frequency: 0-2 drinks per day Alcohol type: wine Patient Tobacco Use Status: Never used Tobacco e-Cigarette/Vaping Use: Never Used Second Hand Smoke Exposure: No service: No Current occupational status: disabled 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 1. Little interest or pleasure in doing things: not at all 2. Feeling down, depressed, or hopeless: not at all 3. Trouble falling or staying asleep, or sleeping too much: not at all 4. Feeling tired or having little energy: not at all 5. Poor appetite or overeating: not at all 6. Feeling bad about yourself - or that you are a failure or have let yourself or your family down: not at all 7. Trouble concentrating on things, such as reading the newspaper or watching television: not at all 8. Moving or speaking so slowly that other people could have noticed. Or the opposite - being so fidgety or restless that you have been moving around a lot more than usual: not at all 9. Thoughts that you would be better off or of hurting yourself in some way: not at all Total score: 0 Depression Screening Interpretation: Negative Depression Screening Done: Yes 53597 - PHQ-9 Billing: Yes Source: Developed by Drs. Kyle Dao, Carmita Espinal, Rashard Burgess and colleagues, with an educational babita from [employer] Thrive Questionnaire Date Thrive assessed: 05/04/24 I am a: Patient What is your living situation today?: I have a steady place to live Within the past 12 months, did the food you bought not last and you didn't have the money to get more?: Never true Within the past 12 months, did you worry whether your food would run out before you got money to buy more?: Never true Do you have trouble paying for medicines?: No Do you have trouble getting transportation to medical appointments?: No Do you have trouble paying your heating and electricity bill?: No Do you have trouble taking care of your child, family member or friend?: No Do you have trouble with day-to-day activities such as bathing, preparing meals, shopping, managing finances, etc.?: No Are you currently unemployed and looking for a job?: No Are you interested in more education?: No Please select the resources that you would like help with: None Currently or been in a relationship where the following occur: No concerns reported THRIVE Score: 0 AUDIT C Alcohol Use Questionnaire (AUDIT-C) 1. How often do you have a drink containing alcohol?: Monthly or less 2. How many drinks containing alcohol do you have on a typical day when you are drinking?: 1 or 2 3. How often do you have six or more drinks on one occasion?: Never Total Score: 1 ROSA ELENA-7 AMB Questionnaire ROSA ELENA-7 Date ROSA ELENA - 7 assessed: 05/04/24 Feeling nervous, anxious, or on edge: 0 = Not at all Not being able to stop or control worryin = Not at all Worrying too much about different things: 0 = Not at all Trouble relaxin = Not at all Being so restless that it is hard to sit still: 0 = Not at all Becoming easily annoyed or irritable: 0 = Not at all Feeling afraid as if something awful might happen: 0 = Not at all Total ROSA ELENA-7 score (0-4 normal; 5-9 mild; 10-14 moderate; 15-21 severe): 0 Source: Developed by Drs. Kyle Dao, Carmita Espinal, Rashard Burgess and colleagues, with an educational babita from [employer] ROSA ELENA-7 Assessment Billing ROSA ELENA-7 Assessment Tool: ROSA ELENA-7 Assessment 87242 Review of Systems Const Denies headache(s) Eyes Denies loss of vision ENT Denies vertigo, Denies dizziness, Denies headache(s) and Denies sore throat Card Denies chest pain, Denies leg edema and Denies lightheadedness Resp Denies cough, Denies hemoptysis and Denies wheezing GI Denies abdominal pain, Denies melena, Denies constipation, Denies diarrhea and Denies vomiting Denies urinary frequency, Reports dysuria, Reports pelvic pain and Denies urinary urgency Musc Denies arthralgias, Denies joint swelling, Denies numbness and Denies tingling Neuro Denies Abnormal speech present, Denies behavioral changes, Denies vertigo, Denies dizziness, Denies headache(s), Denies loss of vision, Denies memory loss, Denies numbness and Denies tingling Psych Denies anxiety, Denies behavioral changes, Denies depression, Denies memory loss and Denies panic attacks Jesus/Lymph Denies easy bleeding and Denies easy bruising Aller/Immun Denies wheezing Physical exam (Primary Care) Vital Signs: Last Vital Signs Temp 97.1 F 05/04/24 15:35 Pulse 50 05/04/24 15:35 BP 138/80 05/04/24 16:00 Pulse Ox 97 05/04/24 15:35 Oxygen Delivery Method Room Air 05/04/24 15:35 BMI result Body Mass Index 24.8 Tobacco/Smoking Status: Tobacco use Status Tobacco use date assessed 05/04/24 05/04/24 15:48 Patient Tobacco Use Status Never used Tobacco 05/04/24 15:37 e-Cigarette/Vaping Use Never Used 05/04/24 15:37 PHQ-9: PHQ-9 Score PHQ-9: Total score 0 05/04/24 15:53 Depression Screening Interpretation: Negative Thrive Assessment: Date of Thrive Assessment Date Thrive assessed 05/04/24 05/04/24 15:48 Currently or been in a relationship where the following occur: No concerns reported Const General: healthy appearing, no acute distress, alert and awake Nutritional Appearance: well nourished Orientation/consciousness: oriented to person, oriented to place and oriented to time HENMT Ears: TM's normal bilaterally General nose exam: Normal nasal mucous membranes and turbinates present Eyes Conjunctivae: conjunctivae normal Sclerae: sclerae normal Pupils: Equal, round and reactive pupils present Neck Neck: Yes no lymphadenopathy and Yes no JVD Thyroid: Thyroid normal Carotids: no bruits Resp Effort & Inspection: normal respiratory effort and not tachypneic Auscultation: no crackles, no rales, no rhonchi and no wheezes Cardio Rate: regular rate Rhythm: regular rhythm Heart sounds: no murmurs and normal S1 and S2 GI Palpation (GI): Soft to palpation, nontender, no hepatomegaly and no splenomegaly Auscultation: normal bowel sounds Skin General skin exam: no rashes or lesions noted and dry skin Neuro General: oriented to person, oriented to place and oriented to time Cranial nerves: Yes Equal, round and reactive pupils present Speech: No Abnormal speech present Gait exam (Neuro): Normal gait present Motor exam (neuro): no tremor noted Extrem Right upper extremity: full ROM Left upper extremity: full ROM Right lower extremity: full ROM; no edema Left lower extremity: full ROM; no edema Psych Mental Status: mental status grossly normal Speech and movement: Normal speech and movement present Affect: normal affect Attitude: cooperative Thought process: Normal thought process present Coding Level of Care Code Est Pt Level 4 (35876) Diagnoses Pre-op evaluation Z01.818 Acute cystitis without hematuria N30.00 Hematuria presence: without hematuria Urinary tract infection type: acute cystitis Malfunction of spinal cord stimulator, sequela T85.192S Encounter type: sequela Hyperlipidemia, unspecified hyperlipidemia type E78.5 Hyperlipidemia type: unspecified Migraine without aura and without status migrainosus, not intractable G43.009 Migraine type: without aura Status migrainosus presence: without status migrainosus Intractability: not intractable Additional Codes ROSA ELENA-7 Assessment Billing - ROSA ELENA-7 Assessment Tool: ROSA ELENA-7 Assessment 68563 ([id number]) PHQ-9 - 02989 - PHQ-9 Billing: Yes ([id number]) Assessment & Plan Assessment & Plan (1) Pre-op evaluation: Code(s): Z01.818 - Encounter for other preprocedural examination Category: Medical Plan: Patient medically clear for needed cataract removal. Most recent labs and vitals today stable. (2) UTI (urinary tract infection): Code(s): N39.0 - Urinary tract infection, site not specified Category: Medical Qualifiers: Hematuria presence: without hematuria Urinary tract infection type: acute cystitis Qualified Code(s): N30.00 - Acute cystitis without hematuria Plan: As per HPI will send in another 5 days of antibiotic. Will supply with Pyridium to help with urethral irritation. Will consider an estrogen cream for possible vaginal dryness. (3) Spinal cord stimulator dysfunction: Code(s): T85.192A - Other mechanical complication of implanted electronic neurostimulator of spinal cord electrode (lead), initial encounter Category: Medical Qualifiers: Encounter type: sequela Qualified Code(s): T85.192S - Other mechanical complication of implanted electronic neurostimulator of spinal cord electrode (lead), sequela Plan: Continues to good pain relief with her cervical spinal stimulator. Also does use topical pain patches which are very helpful. (4) HLD (hyperlipidemia): Code(s): E78.5 - Hyperlipidemia, unspecified Category: Medical Qualifiers: Hyperlipidemia type: unspecified Qualified Code(s): E78.5 - Hyperlipidemia, unspecified Plan: Patient's recent fasting lipid panel showing excellent control over total cholesterol and LDL. Will continue her current dose of atorvastatin at 80 mg with goal LDL to remain below 130 (5) Migraines: Code(s): G43.909 - Migraine, unspecified, not intractable, without status migrainosus Category: Medical Qualifiers: Migraine type: without aura Status migrainosus presence: without status migrainosus Intractability: not intractable Qualified Code(s): G43.009 - Migraine without aura, not intractable, without status migrainosus Plan: She reports her migraines have been well under control with monthly injections of Emgality in daily topiramate. Orders: Orders MM tomosynthesis screening BI 05/04/24 Z12.31 - Encounter for screening mammogram for malignant neoplasm of breast, Z80.3 - Family history of malignant neoplasm of breast Lipid Panel 6 Months E78.5 - Hyperlipidemia, unspecified Complete Blood Count no Diff 6 Months D75.89 - Other specified diseases of blood and blood-forming organs Comprehensive [place]. Panel Fast 6 Months E78.5 - Hyperlipidemia, unspecified Medications: New phenazopyridine (Pyridium) 200 mg PO TID 6 tabs 0RF 2 days N39.0 - Urinary tract infection, site not specified Refilled cholecalciferol (vitamin D3) 50 mcg PO DAILY 90 caps 1RF 90 days E55.9 - Vitamin D deficiency, unspecified, Z78.0 - Asymptomatic menopausal state dicyclomine 20 mg PO QID 360 tabs 3RF 90 days K58.9 - Irritable bowel syndrome, unspecified galcanezumab-gnlm (Emgality Pen) 120 mg subcut ONCE 1 mL 3RF 4 weeks G43.909 - Migraine, unspecified, not intractable, without status migrainosus nitrofurantoin monohyd/m-cryst 100 mg (Macrobid) must administer with a meal/food 100 mg PO Q12H 10 caps 0RF 5 days N39.0 - Urinary tract infection, site not specified atorvastatin 80 mg PO BEDTIME 90 tabs 2RF 90 days E78.5 - Hyperlipidemia, unspecified escitalopram oxalate 20 mg PO DAILY 90 tabs 2RF F41.1 - Generalized anxiety disorder gabapentin 800 mg PO TID 270 tabs 2RF 90 days M47.812 - Spondylosis without myelopathy or radiculopathy, cervical region montelukast 10 mg PO BEDTIME 90 tabs 3RF 90 days J30.9 - Allergic rhinitis, unspecified topiramate 100 mg PO BID 180 tabs 2RF 90 days G43.909 - Migraine, unspecified, not intractable, without status migrainosus Patient Instructions: Goal: LDL to remain below 130 Barriers: Adherence to physical activity and healthy eating habits
[2024-05-04 16:00] VITALS: BP 138/80
== END 2024-05-04 16:21 | disposition home or self-care (01) ==
PROVIDERS: PCP Physician Assistant; Visit Provider Physician Assistant
DX: Z01.818 Encounter for other preprocedural examination (principal); N30.00 Acute cystitis without hematuria; T85.192S Other mechanical complication of implanted electronic neurostimulator of spinal cord electrode (lead), sequela; E78.5 Hyperlipidemia, unspecified; G43.009 Migraine without aura, not intractable, without status migrainosus

== ENCOUNTER 2024-06-03 12:13 | Outpatient (REF) | payer MEDICARE, MEDICAID, SELFPAY ==
[2024-06-03 16:25] LABS: Appearance Urine Clear; Color Urine Yellow; Glucose Urine UA Negative (Negative); Leukocyte Esterase Urine Negative (Negative); Nitrite Urine Negative (Negative); PH 5.5 (5.0-9.0); Urine Blood Negative (Negative); Urine Ketones Negative (Negative); Urine Protein Negative (Neg-Trace)
== END 2024-06-03 12:14 | disposition home or self-care (01) ==
LOC: HO.HMGCLDS 12:13
PROVIDERS: PCP Physician Assistant; Visit Provider Physician Assistant
DX: R30.0 Dysuria (principal); N39.0 Urinary tract infection, site not specified
CPT/HCPCS: 81003

== ENCOUNTER 2024-06-04 14:45 | Outpatient (REF) | payer MEDICARE, MEDICAID, SELFPAY | END 2024-06-04 14:46 | disposition home or self-care (01) | LOC: HO.MAMMO 14:45 | PROVIDERS: PCP Physician Assistant; Visit Provider Physician Assistant | DX: Z12.31 Encounter for screening mammogram for malignant neoplasm of breast (principal); Z80.3 Family history of malignant neoplasm of breast | CPT/HCPCS: 77063; 77067 ==

== ENCOUNTER → 2024-06-04 15:00 | Outpatient (BNV) | payer MEDICARE, MEDICAID, SELFPAY | PROVIDERS: PCP Physician Assistant; Visit Provider Internal Medicine | DX: Z12.31 Encounter for screening mammogram for malignant neoplasm of breast (principal) | CPT/HCPCS: 77063; 77067 ==

== ENCOUNTER 2024-06-12 13:56 | Inpatient (IN) | payer MEDICARE, OTHER, SELFPAY ==
--- NOTE | ~2024-06-12 | CT_ITS ---
CLINICAL HISTORY: abd pain, concern for SBO CT abdomen and pelvis with contrast Comparison: None Findings: No consolidation or effusion. Multiple hepatic cysts are present. Portal vein is patent. Gallbladder is unremarkable. Small renal cortical cysts are present. No hydronephrosis. Spleen, adrenal glands, pancreas are unremarkable. Small bowel loops are fluid-filled and diffusely dilated, measuring up to 3.5 cm. The colon is decompressed. Distal small bowel is decompressed. There is an abrupt transition point in the mid to distal small bowel located in the left midabdomen laterally, series 8, image 29 and series 7, image 31. No free air or pneumatosis. No ascites. There are scattered colonic diverticula, however no evidence of diverticulitis. Appendix not visualized. There is an impulse generator in the right flank with leads coursing towards the thoracic spine, tip not included on this study. IMPRESSION: Small bowel obstruction with transition point in the left lower quadrant. This document has been electronically signed by: Reymundo Kenyon MD on 06/12/2024 19:22:52
--- NOTE | 2024-06-12 14:01 | ED_ITS ---
HPI - General Adult General Chief complaint: General Medical Stated complaint: V/WEAKNESS/COLD SWEATS PER EMS Time Seen by Provider: 06/12/24 14:01 Source: patient and EMS Mode of arrival: EMS Limitations: no limitations History of Present Illness ED Provider: Elizabeth Ervin PA-C HPI narrative: Patient is a 68 year old assigned female at with a history of PUD, HLD, GERD, migraines, ROSA ELENA, IBS, and recurrent UTIs presenting to the emergency department today with nausea, vomiting, and abdominal pain. Patient states that she has had nausea, vomiting, and abdominal pain starting this morning and has been unable to pass any stool or gas over the last 2 days. Patient denies any dizziness, lightheadedness, fever, chills, blurry vision, double vision, loss of vision, chest pain, difficulty breathing, shortness of breath, back pain, night sweats, pain with urination, increased urinary frequency, increased urinary urgency, blood in her urine or stool, syncope or a near syncopal episode, recent trauma or falls, bowel incontinence, bladder incontinence, or any other complaints at this time. Location: abdomen Relieving factors: none Exacerbating factors: none Associated symptoms: nausea/vomiting Treatments prior to arrival: none Related Data Home Medications ?Medication ?Instructions ?Recorded ?Confirmed galcanezumab-gnlm 120 mg/mL 120 mg subcut QMONTH 06/12/24 subcutaneous pen injector (Emgality Pen) pantoprazole 40 mg tablet,delayed 40 mg PO DAILY@0630 06/12/24 06/12/24 release Previous Rx's ?Medication ?Instructions ?Recorded zolpidem 10 mg tablet 10 mg PO BEDTIME Sleep 30 days #30 02/24/24 tabs sucralfate 1 gram tablet (Carafate) 1 g PO BID 90 days #180 tabs 02/25/24 acetaminophen 650 mg 650 mg PO TID PRN pain 30 days #90 04/15/24 tablet,extended release tabs linaclotide 145 mcg capsule 145 mcg PO DAILY 90 days #90 caps 04/23/24 (Linzess) atorvastatin 80 mg tablet 80 mg PO BEDTIME 90 days #90 tabs 05/04/24 cholecalciferol (vitamin D3) 50 50 mcg PO DAILY 90 days #90 caps 05/04/24 mcg (2,000 unit) capsule dicyclomine 20 mg tablet 20 mg PO QID 90 days #360 tabs 05/04/24 escitalopram oxalate 20 mg tablet 20 mg PO DAILY #90 tabs 05/04/24 gabapentin 800 mg tablet 800 mg PO TID 90 days #270 tabs 05/04/24 montelukast 10 mg tablet 10 mg PO BEDTIME 90 days #90 tabs 05/04/24 topiramate 100 mg tablet 100 mg PO BID 90 days #180 tabs 05/04/24 primidone 50 mg tablet 50 mg PO BEDTIME 90 days #90 tabs 05/12/24 Allergies Allergy/AdvReac Type Severity Reaction Status Date / Time morphine Allergy Difficulty Verified 06/12/24 14:08 Breathing Review of Systems 2 Constitutional: Constitutional: Reports no additional constitutional complaints, Denies chills, Denies fever(s) and Denies night sweats Eyes: Eyes: Reports no additional eye complaints, Denies blurry vision, Denies change in vision, Denies diplopia, Denies eye discharge, Denies loss of vision and Denies eye pain ENT: Denies dizziness Cardiovascular: Cardiovascular: Reports no additional cardiovascular complaints, Denies chest pain, Denies lightheadedness, Denies Loss of Consciousness and Denies dyspnea Respiratory: Respiratory: Reports no additional respiratory complaints and Denies dyspnea Gastrointestinal: Gastrointestinal: Reports no additional gastrointestinal complaints, Reports abdominal pain, Denies melena, Denies hematochezia, Reports change in bowel habits, Denies change in stool character, Reports constipation, Reports nausea and Reports vomiting Genitourinary: Genitourinary: Denies hematuria, Denies urinary frequency, Denies dysuria, Denies urinary incontinence, Denies urinary hesitancy and Denies urinary urgency Musculoskeletal: Musculoskeletal: Reports no additional musculoskeletal complaints, Denies numbness and Denies tingling Neurologic: Denies dizziness, Denies loss of vision, Denies numbness and Denies tingling Psychiatric: Psychiatric: Reports no additional psychiatric complaints Endocrine: Endocrine: Reports no additional endocrine complaints Hematologic/Lymphatic: Hematologic/Lymphatic: Reports no additional hematologic/lymphatic complaints Allergic/Immunologic: Allergic/Immunologic: Reports no additional allergic/immunologic complaints PMFSH Past Medical History Attestation statement: The following information was validated with the patient. Source: old records reviewed and nursing notes reviewed Medical History COVID-19 vaccine series completed Chronic cough Hyperlipidemia GERD (gastroesophageal reflux disease) Migraines Anxiety IBS (irritable bowel syndrome) Tremor FPC (current) use of opiate analgesic Spondylosis of cervical spine Failed back syndrome, cervical Left cervical radiculopathy Surgical History S/P insertion of spinal cord stimulator Hx of hysterectomy, total History of tonsillectomy and adenoidectomy History of surgery on arm Status post debridement History of ankle surgery Family History Family History Sister Breast cancer, Onset Age: 42 Social History Social History Household Members Other:: lives with , son and granddaughter Housing: House Are you a primary child care education coordinator to a significant other at home: No Do you presently have visiting nurse or other home services: No Alcohol intake: current Alcohol intake frequency: 0-2 drinks per day Alcohol type: wine Patient Tobacco Use Status: Never used Tobacco Smoked in Last 30 Days: No e-Cigarette/Vaping Use: Never Used Second Hand Smoke Exposure: No Use of substances other than those prescribed or required for medical reasons: No Advance Directives: No Advance Directives Information Provided: Yes Do you have a plan to hurt others: No Plan service: No Current occupational status: disabled 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 [employer] - 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 Cognitive needs: No Hearing needs: No Vision needs: Yes (glasses) Physical Exam ED Vital Signs: Vital Signs - 24 hr 06/12/24 14:06 06/12/24 15:34 06/12/24 18:10 Temperature 98 F 98.2 F 98.3 F Pulse Rate 45 L 44 L 63 Respiratory Rate 15 19 16 Blood Pressure 110/54 L 159/60 H 140/62 H Pulse Oximetry 99 98 98 Oxygen Delivery Method Room Air Room Air Room Air BMI result Body Mass Index 25.4 Const General: cooperative, no acute distress, alert and awake Nutritional Appearance: well nourished Orientation/consciousness: patient oriented x3 Limitations: no limitations HENMT Head: Yes normal to inspection and Yes atraumatic Ears: hearing grossly normal bilaterally and external ears normal General nose exam: Normal external nose present, no nasal discharge noted and no epistaxis Face and sinus: Yes normal facial exam, No abrasion and No laceration Mouth: Normal oral and palatal mucosa present, no drooling and no muffled voice Eyes Conjunctivae: conjunctivae normal Pupils: Equal, round and reactive pupils present EOM: EOMs intact bilaterally Eyes/upper lids images: 2 1. small area of bruising - secondary to recent cataract surgery Neck Neck: Yes normal visual inspection, Yes full ROM and Yes no lymphadenopathy Chest Chest palpation & inspection: normal inspection of the chest Resp Effort & Inspection: normal respiratory effort and able to speak in complete sentences Cardio Rate: bradycardic Rhythm: regular rhythm GI Inspection: Yes distended Palpation (GI): not firm, Tenderness to palpation present (GI) in the LLQ, in the RLQ, in the LUQ and in the RUQ, no guarding and not rigid Neuro General: patient oriented x3, moves all extremities and CN's II-XI intact bilaterally Cranial nerves: Yes Equal, round and reactive pupils present Cognition (Neuro): normal cognition Extrem General: Yes normal to inspection, Yes full ROM and Yes capillary refill normal Psych Appearance: grossly normal Mental Status: mental status grossly normal Affect: normal affect Attitude: cooperative Thought process: Normal thought process present Thought content: Normal thought content present Insight: Good insight present (Psych) Medications Administered Discontinued Medications Generic Name Dose Route Start Last Admin Trade Name Tuanq PRN Reason Stop Dose Admin Sodium Chloride 1,000 mls @ 999 mls/hr 06/12/24 14:15 06/12/24 18:51 Ns IV 06/12/24 15:15 Infused .Q1H1M MARCIN Infusion Iohexol 85 ml 06/12/24 18:02 06/12/24 18:03 Iohexol 350 Mg/Ml 75 Ml Infus..Btl IV 06/12/24 18:03 85 ml ONCE ONE Administration Lorazepam 0.5 mg 06/12/24 15:29 06/12/24 15:32 Lorazepam 2 Mg/Ml Vial IVPUSH 06/12/24 15:30 0.5 mg ONCE ONE Administration Ondansetron HCl 4 mg 06/12/24 14:14 06/12/24 14:31 Ondansetron Hcl 4 Mg/2 Ml Vial IVPUSH 06/12/24 14:15 4 mg ONCE ONE Administration Medical Decision Making Medical Decision Making MDM Narrative: Patient is a 68 year old assigned female at with a history of PUD, HLD, GERD, migraines, ROSA ELENA, IBS, and recurrent UTIs presenting to the emergency department today with nausea, vomiting, and abdominal pain. Patient's physical exam was as noted in the physical exam portion of this note. Patient's blood work showed a mild elevation of the WBC count to 11.1. Patient's EKG was unremarkable. Patient's CT abdomen/pelvis showed an SBO. I spoke to the general surgeon technical operations specialist, Dr. Guy, who recommended NG tube placement and admission to his service. NG tube ordered. I explained my physical exam findings as well as all test results to the patient. Patient given IV Zofran + IV Ativan which she stated helped her symptoms some. I answered all questions asked by the patient. Patient verbalized agreement and understanding with this treatment plan and admission. Differential Diagnosis Differential Diagnoses: The differential diagnosis associated with the presentation includes Small bowel obstruction Abdominal pain Constipation Admission/Observation Consideration of admission/observation: Escalation of care including admission/observation considered Patient admitted as noted in the MDM Rationale portion of this note. Consult Healthcare Provider Management of the patient was discussed with: Telephone Maintainer (spoke to the general surgery team as noted in the MDM Rationale portion of this note. ) Lab Data [facility] Lab Attestation statement: I reviewed the patient's lab results. My interpretation of these results are in the MDM Rationale portion of this note. 06/12/24 14:22 06/12/24 15:13 Labs: Lab Results 06/12/24 06/12/24 Range/Units 14:22 15:13 WBC 11.1 H (4.8-10.8) X10*3/uL RBC 4.21 (4.20-5.50) X10*6/uL Hgb 13.3 (12.0-16.0) g/dl Hct 39.9 (37.0-47.0) % MCV 94.8 (80.0-98.0) fL MCH 31.6 (27.0-33.0) pg MCHC 33.3 (31.0-35.0) g/dl RDW 15.1 (11.0-16.0) % Plt Count 221 (160-400) X10*3/uL MPV 11.0 (9.4-12.3) fL Immature Gran % (Auto) 0.4 (0.0-0.4) % Neut % (Auto) 89.6 H (45-73) % Lymph % (Auto) 6.9 L (20-40) % Barber % (Auto) 2.3 (2-11) % Eos % (Auto) 0.2 (0-4) % Baso % (Auto) 0.6 (0-2) % Lymph # (Auto) 0.8 L (1.2-4.9) X10*3/uL Barber # (Auto) 0.3 (0.1-1.2) X10*3/uL Eos # (Auto) 0.0 (0.0-0.4) X10*3/uL Baso # (Auto) 0.1 (0.0-0.2) X10*3/uL Abs Immat Gran (auto) 0.04 H (0.00-0.03) X10*3/uL Absolute Neuts (auto) 9.9 H (2.0-8.3) x10*3/uL Absolute Nucleated RBC 0.000 (0.0-0.012) X10*3/uL Nucleated RBC % (auto) 0.0 (0.0-0.2) /100WBC PT 10.7 L (10.9-12.4) SEC INR 0.9 (0.9-1.1) Sodium 142 (135-145) mmol/L Potassium 4.0 (3.3-5.1) mmol/L Chloride 111 H (96-108) mmol/L Carbon Dioxide 21 L (22-29) mmol/L Anion Gap 14 (12-20) BUN 12 (9-16) mg/dL Creatinine 0.81 (0.5-1.4) mg/dL Estim Creat Clear Calc 51.9 Estimated GFR > 60 Random Glucose 125 H (60-115) mg/dL Calcium 10.0 D (8.4-10.2) mg/dL Magnesium 1.9 (1.6-2.6) mg/dL Total Bilirubin 0.4 (0.0-1.0) mg/dL AST 22 (5-31) U/L ALT 21 (0-31) U/L Alkaline Phosphatase 109 (39-117) U/L Troponin I High Sens < 2.7 (<3.5-17.0) ng/L Total Protein 6.8 (6.5-8.0) g/dL Albumin 4.3 (3.5-5.0) g/dL Lipase 14 (8-78) U/L Independent Interpretation I performed an independent interpretation of an: EKG and CT Scan Interpretation: My interpretation is in agreement with the radiologist's impression of this imaging study. L Report Number: [id number]: Total DLP = 548.00 mGy-cm ADDENDUMThis document has been electronically signed by: Reymundo Kenyon MD on 06/12/2024 19:22:52 ADDENDUM: This report was discussed with Arcadio Johnson on Jun 12, 2024 19:24:00 EDT. This document has been electronically signed by: Mary Roberts on 06/12/2024 19:24:51 Addendum Dictated By: Reymundo Kenyon MD Addendum Signed By: Electronically signed by Reymundo Kenyon MD 06/12/241925 Addendum Cosigned By: DD/ TD/TT: 06/12/24 CLINICAL HISTORY: abd pain, concern for SBO CT abdomen and pelvis with contrast Comparison: None Findings: No consolidation or effusion. Multiple hepatic cysts are present. Portal vein is patent. Gallbladder is unremarkable. Small renal cortical cysts are present. No hydronephrosis. Spleen, adrenal glands, pancreas are unremarkable. Small bowel loops are fluid-filled and diffusely dilated, measuring up to 3.5 cm. The colon is decompressed. Distal small bowel is decompressed. There is an abrupt transition point in the mid to distal small bowel located in the left midabdomen laterally, series 8, image 29 and series 7, image 31. No free air or pneumatosis. No ascites. There are scattered colonic diverticula, however no evidence of diverticulitis. Appendix not visualized. There is an impulse generator in the right flank with leads coursing towards the thoracic spine, tip not included on this study. IMPRESSION: Small bowel obstruction with transition point in the left lower quadrant. This document has been electronically signed by: Reymundo Kenyon MD on 06/12/2024 19:22:52 Dictated By: Reymundo Kenyon MD Signed By: Electronically signed by Reymundo Kenyon MD 06/12/24 1924 I independently interpreted this EKG and am in agreement with the below findings: Vent. Rate: 46 BPM Atrial Rate: 46 BPM P-R Int: 158 ms QRS Dur: 80 ms QT Int: 522 ms P-R-T Axes: 76 6 28 degrees QTcB Int: 456 ms Sinus bradycardia Possible Left atrial enlargement No previous ECGs available Referred By: Elizabeth Ervin Electronically Signed By: Javier Pompa Dictated By: Javier Pompa MD Signed By: Electronically signed by Javier Pompa MD 06/12/24 1736 Radiology Impression Discussion of test interpretation with radiology: I have reviewed the radiologist's reading. Independent Historian Clinical information obtained from an independent historian. History obtained from or confirmed by: EMS (EMS provided additional history and confirmed the history provided by the patient. ) Critical Care Time Critical Care Time Critical Care Time: Yes Total Critical Care Time: 44 Attestation: I spent 44 minutes of Critical Care Time with this patient. This does not include time spent on separately reported billable procedures. Discharge Plan Discharge Clinical Impression: Small bowel obstruction Patient Disposition: Admitted As Inpatient
--- NOTE | 2024-06-12 14:02 | ECG_ITS ---
Test Reason : bradycardic Blood Pressure : */* mmHG Vent. Rate : 46 BPM Atrial Rate : 46 BPM P-R Int : 158 ms QRS Dur : 80 ms QT Int : 522 ms P-R-T Axes : 76 6 28 degrees QTcB Int : 456 ms Sinus bradycardia Possible Left atrial enlargement Borderline ECG No previous ECGs available Referred By: Elizabeth Ervin Electronically Signed By: Javier Pompa
[2024-06-12 14:06] VITALS: BP 110/54; PULSE 45; RESP 15; TEMP 36.6; O2SAT 99; BMI 25.4
[2024-06-12 14:27] LABS: MANUAL DIFF FLAG NO
[2024-06-12 14:28] LABS: Basophils Absolute Auto 0.1 X10*3/uL (0.0-0.2); Basophils Percent Auto 0.6 % (0-2); Eosinophils Percent Auto 0.2 % (0-4); Hematocrit 39.9 % (37.0-47.0); Hemoglobin 13.3 g/dl (12.0-16.0); Imm Gran Abs Auto 0.04 X10*3/uL (0.00-0.03); Imm Gran Pct Auto 0.4 % (0.0-0.4); Lymphocytes Absolute Auto 0.8 X10*3/uL (1.2-4.9); Lymphocytes Percent Auto 6.9 % (20-40); Mean Corpuscular HGB Conc 33.3 g/dl (31.0-35.0); Mean Corpuscular Hemoglobin 31.6 pg (27.0-33.0); Mean Corpuscular Volume 94.8 fL (80.0-98.0); Monocytes Absolute Auto 0.3 X10*3/uL (0.1-1.2); Monocytes Percent Auto 2.3 % (2-11); Neutrophils Absolute Auto 9.9 x10*3/uL (2.0-8.3); Neutrophils Percent Auto 89.6 % (45-73); Platelet Count 221 X10*3/uL (160-400); Red Blood Count 4.21 X10*6/uL (4.20-5.50); Red Cell Distribution Width 15.1 % (11.0-16.0); White Blood Count 11.1 X10*3/uL (4.8-10.8)
[2024-06-12] MEDS: 0.9 % Sodium Chloride 1,000 ML 999 ML IV (14:31)
[2024-06-12] MEDS: ondansetron HCL 4 MG/2 ML VIAL IVPUSH (14:31)
[2024-06-12 14:34] LABS: INTERNATIONAL NORM RATIO 0.9 (0.9-1.1); Prothrombin Time 10.7 SEC (10.9-12.4)
[2024-06-12 14:52] LABS: Troponin-I High Sensitivity < 2.7 ng/L (<3.5-17.0)
[2024-06-12] MEDS: LORazepam 2 MG/ML VIAL 0.5 MG IVPUSH (15:32)
[2024-06-12 15:34] VITALS: BP 159/60; PULSE 44; RESP 19; TEMP 36.8; O2SAT 98
[2024-06-12 15:45] LABS: Alanine Aminotransferase 21 U/L (0-31); Albumin Level 4.3 g/dL (3.5-5.0); Anion Gap 14 (12-20); Bilirubin Total 0.4 mg/dL (0.0-1.0); Blood Urea Nitrogen 12 mg/dL (9-16); Carbon Dioxide 21 mmol/L (22-29); Chloride 111 mmol/L (96-108); Creatinine Clr Calc Pharmacy 51.9; Estimated Glomerular Filt Rate > 60; Glucose Random 125 mg/dL (60-115); Magnesium 1.9 mg/dL (1.6-2.6); Sodium 142 mmol/L (135-145); Total Protein 6.8 g/dL (6.5-8.0)
[2024-06-12 16:06] LABS: Alkaline Phosphatase 109 U/L (39-117); Aspartate Amino Transferase 22 U/L (5-31); Lipase 14 U/L (8-78)
[2024-06-12] MEDS: iohexoL 350 MG/ML 75 ML INFUS..BTL 85 ML IV (18:03)
[2024-06-12 18:10] VITALS: BP 140/62; PULSE 63; RESP 16; TEMP 36.8; O2SAT 98
[2024-06-12 20:00] VITALS: BP 115/62; PULSE 64
--- NOTE | 2024-06-12 20:03 | PHA.MEDREC ---
Addendum entered by Khanh Venegas [facility] 06/12/24 20:12: med rec reviewed Original Note: Pharmacy Consult ? Medication Reconciliation Pharmacy has completed the medication reconciliation. Spoke to patient to confirm med list. Patient states she is not taking Estradiol 10 mcg , Ketorolac eye drops, and Phenazopyridine 200 mg. Patient confirm Emgality 120 mg q month, last dose was 05/31/24.
--- NOTE | 2024-06-12 20:18 | PC.NURSE ---
ng tube placed- verified placement via gastric sounds. Tubing secured and suction on intermittent suctioning
[2024-06-12] MEDS: Dextrose 5 % and Lactated Ring 1,000 ML 125 ML IVCONT (21:07)
[2024-06-12] MEDS: Enoxaparin Sodium 40 MG/0.4 ML SYRINGE SUBCUT (21:09)
[2024-06-12] MEDS: Acetaminophen 1,000 MG/100 ML PIGGYBACK 400 MG IV (21:10)
[2024-06-12] MEDS: Zolpidem Tartrate 5 MG TABLET PO (21:53)
[2024-06-12 22:25] VITALS: BP 105/48; PULSE 65; RESP 11; TEMP 36.9; O2SAT 97
[2024-06-12 22:37] LABS: Appearance Urine Clear; Color Urine Yellow; Glucose Urine UA Negative (Negative); Leukocyte Esterase Urine Negative (Negative); Nitrite Urine Negative (Negative); Specific Gravity - Urine >= 1.030 (1.005-1.025); Urine Blood Negative (Negative); Urine Ketones 40 mg/dL (Negative); Urine Protein Trace mg/dL (Neg-Trace)
[2024-06-12 23:04] LABS: Influenza A PCR NEGATIVE (Negative); Influenza B PCR NEGATIVE (Negative); Resp Syncy Virus RNA Qual PCR NEGATIVE (Negative); SARS COV2 PCR INHOUSE NEGATIVE (Negative)
[2024-06-13] VITALS (7 sets, daily range): BP systolic 101–144; BP diastolic 50–64; PULSE 49–69; RESP 12–20; TEMP 36.4–36.9; O2SAT 95–100
--- NOTE | 2024-06-13 00:10 | PC.NURSE ---
pt incontinent of stool. Pt assisted to bedside commode. pericare provided. plan of care ongoing
[2024-06-13] MEDS: Dextrose 5 % and Lactated Ring 1,000 ML 125 ML IVCONT ×3 (03:32→20:07)
[2024-06-13] MEDS: Acetaminophen 1,000 MG/100 ML PIGGYBACK 400 MG IV ×3 (03:32→14:29)
[2024-06-13 05:40] LABS: MANUAL DIFF FLAG NO
[2024-06-13 05:41] LABS: Basophils Percent Auto 0.8 % (0-2); Hematocrit 31.2 % (37.0-47.0); Hemoglobin 10.3 g/dl (12.0-16.0); Imm Gran Abs Auto 0.02 X10*3/uL (0.00-0.03); Imm Gran Pct Auto 0.4 % (0.0-0.4); Lymphocytes Absolute Auto 1.1 X10*3/uL (1.2-4.9); Lymphocytes Percent Auto 20.6 % (20-40); Mean Corpuscular Hemoglobin 31.7 pg (27.0-33.0); Mean Platelet Volume 10.4 fL (9.4-12.3); Monocytes Absolute Auto 0.6 X10*3/uL (0.1-1.2); Monocytes Percent Auto 10.6 % (2-11); Neutrophils Absolute Auto 3.5 x10*3/uL (2.0-8.3); Neutrophils Percent Auto 67.6 % (45-73); Platelet Count 179 X10*3/uL (160-400); Red Blood Count 3.25 X10*6/uL (4.20-5.50); Red Cell Distribution Width 15.1 % (11.0-16.0); White Blood Count 5.2 X10*3/uL (4.8-10.8)
[2024-06-13 05:58] LABS: Anion Gap 8 (12-20); Blood Urea Nitrogen 12 mg/dL (9-16); Calcium 8.1 mg/dL (8.4-10.2); Carbon Dioxide 22 mmol/L (22-29); Chloride 116 mmol/L (96-108); Creatinine Clr Calc Pharmacy 53.2; Estimated Glomerular Filt Rate > 60; Glucose Random 139 mg/dL (60-115); Sodium 143 mmol/L (135-145)
--- NOTE | 2024-06-13 07:30 | PM.HPGS ---
History of Present Illness History of Present Illness Date of Service: 06/13/24 Chief complaint: Small bowel obstruction Narrative: Ani Corea is a 68 year old female presenting with complaints of abdominal pain in the upper abdomen of 1 day duration associated with nausea and vomiting. She also reports no bowel movements for 2 days. She denies a previous history of similar symptoms. Pain became quite severe and she subsequently presented to the emergency department for further evaluation. She reports a prior history of an abdominal hysterectomy many years ago and denies any problems after that surgery. She also has a history of IBS in his currently taking Linzess. She presented to the emergency department and was noted to have a mildly elevated WBC. CT abdomen and pelvis revealed dilated loops of proximal small bowel and stomach with decompressed distal small bowel and colon suggestive of a small-bowel obstruction. A nasogastric tube was inserted in the emergency department. This morning she feels much improved with no further abdominal pain or nausea. She was admitted to the surgical service for further management of this partial small-bowel obstruction. Review of Systems Review of Systems: Yes all other systems are reviewed and are negative Constitutional: Constitutional: Reports anorexia, Denies fever(s), Denies night sweats and Reports poor appetite Cardiovascular: Cardiovascular: Denies rapid heart rate, Denies irregular heart rhythm and Denies dyspnea on exertion Respiratory: Respiratory: Denies chest congestion, Denies cough and Denies dyspnea on exertion Gastrointestinal: Gastrointestinal: Reports abdominal pain, Denies hematochezia, Reports constipation, Reports GI cramping, Denies heartburn, Denies diarrhea, Reports nausea and Reports vomiting PMFSH Past Medical History Medical History COVID-19 vaccine series completed Chronic cough Hyperlipidemia GERD (gastroesophageal reflux disease) Migraines Anxiety IBS (irritable bowel syndrome) Tremor [facility] (current) use of opiate analgesic Spondylosis of cervical spine Failed back syndrome, cervical Left cervical radiculopathy Family History Family History Sister Breast cancer, Onset Age: 42 Surgical History Surgical History S/P insertion of spinal cord stimulator Hx of hysterectomy, total History of tonsillectomy and adenoidectomy History of surgery on arm Status post debridement History of ankle surgery Social History Social History Household Members Other:: lives with , son and granddaughter Housing: House Are you a primary career center advisor to a significant other at home: No Do you presently have visiting nurse or other home services: No Alcohol intake: current Alcohol intake frequency: 0-2 drinks per day Alcohol type: wine Patient Tobacco Use Status: Never used Tobacco Smoked in Last 30 Days: No e-Cigarette/Vaping Use: Never Used Second Hand Smoke Exposure: No Use of substances other than those prescribed or required for medical reasons: No Advance Directives: No Advance Directives Information Provided: Yes Do you have a plan to hurt others: No Plan service: No Current occupational status: disabled 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 - 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 Cognitive needs: No Hearing needs: No Vision needs: Yes (glasses) Meds Allergies Allergy/AdvReac Type Severity Reaction Status Date / Time morphine Allergy Difficulty Verified 06/12/24 14:08 Breathing Active Medications: Current Medications Enoxaparin Sodium (Enoxaparin Sodium 40 Mg/0.4 Ml Syringe) 40 mg SUBCUT Q24H [facility] Last Admin: 06/12/24 21:09 Dose: 40 mg Acetaminophen (Ofirmev) 1,000 mg in 100 mls @ 400 mls/hr IV Q6H [facility] Stop: 06/13/24 14:14 Last Admin: 06/13/24 07:19 Dose: 400 mls/hr Dextrose/Lactated Ringer's (D5lr) 1,000 mls @ 125 mls/hr IVCONT .Q8H [facility] Last Admin: 06/13/24 03:32 Dose: 125 mls/hr Ondansetron HCl (Ondansetron Hcl 4 Mg/2 Ml Vial) 4 mg IVPUSH QID PRN PRN Reason: Nausea Sodium Chloride (0.9 % Sodium Chloride Flush 3 Ml Syringe) 3 ml IVFLUSH QSHIFT [facility] Last Admin: 06/13/24 07:19 Dose: Not Given Zolpidem Tartrate (Zolpidem Tartrate 5 Mg Tablet) 5 mg PO BEDTIME PRN PRN Reason: Insomnia Last Admin: 06/12/24 21:53 Dose: 5 mg Home Medications ?Medication ?Instructions ?Recorded ?Confirmed ?Last Taken ?Type gabapentin 800 mg tablet 800 mg PO TID PRN Pain 06/12/24 06/12/24 Unknown History galcanezumab-gnlm 120 mg/mL 120 mg subcut QMONTH 06/12/24 06/12/24 05/31/24 History subcutaneous pen injector (Emgality Pen) pantoprazole 40 mg tablet,delayed 40 mg PO DAILY@0630 06/12/24 06/12/24 06/11/24 History release Physical Exam Vital Signs: Vital Signs: Last Vital Signs Temp 98.4 F 06/13/24 06:41 Pulse 62 06/13/24 06:41 Resp 16 06/13/24 06:41 BP 101/51 L 06/13/24 06:41 Pulse Ox 96 06/13/24 02:45 O2 Del Method Room Air 06/13/24 06:41 BMI result Body Mass Index 25.4 Const: General: no acute distress Nutritional Appearance: well nourished Orientation/consciousness: patient oriented x3 Limitations: no limitations HEENT: Head: Yes normocephalic and Yes atraumatic Ears: hearing grossly normal bilaterally Resp: Effort & Inspection: normal respiratory effort, no audible wheezes, no cough and no respiratory distress Auscultation: clear to auscultation bilaterally Cardio: Jugular venous distension: no JVD Rate: regular rate Rhythm: regular rhythm GI: Inspection: Yes incision Palpation (GI): Soft to palpation, nontender, no guarding and not rigid Percussion: Yes tympanic to percussion Auscultation: abnormal bowel sounds Rectal Exam - Female: deferred Skin: Other: Warm, dry, no rash Neuro: General: patient oriented x3 Extrem: General: Yes no clubbing, cyanosis or edema Results Results Labs: Short CBC 06/12/24 06/13/24 Range/Units 14:22 05:34 WBC 11.1 H 5.2 (4.8-10.8) X10*3/uL Hgb 13.3 10.3 L D (12.0-16.0) g/dl Hct 39.9 31.2 L D (37.0-47.0) % Plt Count 221 179 (160-400) X10*3/uL BMP 06/12/24 06/13/24 15:13 05:34 Sodium 142 143 Potassium 4.0 3.0 L D Chloride 111 H 116 H Carbon Dioxide 21 L 22 BUN 12 12 Creatinine 0.81 0.79 Calcium 10.0 D 8.1 L D Liver Function 06/12/24 Range/Units 15:13 Total Bilirubin 0.4 (0.0-1.0) mg/dL AST 22 (5-31) U/L ALT 21 (0-31) U/L Alkaline Phosphatase 109 (39-117) U/L Albumin 4.3 (3.5-5.0) g/dL Urine 06/12/24 Range/Units 22:23 Urine Color Yellow Urine Appearance Clear Urine pH 6.0 (5.0-9.0) Ur Specific [place] >= 1.030 H (1.005-1.025) Urine Protein Trace (Neg-Trace) mg/dL Urine Glucose (UA) Negative (Negative) mg/dL Abdomen CT scan report/results: image reviewed CT scan - pelvis: image reviewed Assessment and Plan (1) Small bowel obstruction: Status: Acute Plan 68-year-old female presenting with complaints of abdominal pain, nausea and vomiting found on workup to have dilated loops of proximal small bowel suggestive of a probable partial small-bowel obstruction due to adhesions. She does have a history of a hysterectomy many years ago but denies any previous history of bowel obstruction. She feels much improved after nasogastric tube insertion this morning. I recommended a period of bowel rest with IV fluid hydration, NG tube decompression. She expressed understanding and agrees with the plan. She understands that if her symptoms do not improve she may require exploratory laparotomy. Quality Stroke Does the patient have a stroke diagnosis?: No VTE Prior VTE?: No VTE Risk Level:: Surgical - moderate VTE Device Contraindication: N/A - Device Ordered VTE Drug Contraindication: N/A - Med Ordered Procedures Date of Service Date of Service: 06/13/24
[2024-06-13] MEDS: Throat Spray, Medicated 177 ML BOTTLE 1 SPRAY MUCOUS MEM (15:08)
--- NOTE | 2024-06-13 16:34 | MHC.CM.PN ---
Addendum entered by Brianne Christensen 06/15/24 13:59: PT WILL DC HOME TODAY WITH NO SERVICES VIA FAMILY TRANSPORT Original Note: PT REPORTS SHE LIVES WITH HER , SON AND GRANDDAUGHTER, AND HER DAUGHTER LIVES UPSTAIRS SHE IS INDEPENDENT WITH CARE, HAS NO DME AND NO SERVICES PT STATES SHE IS NOT INTERESTED IN COMPLETING A HCP PCP: GUERDA MERAZ IMM DELIVERED DCP: HOME VIA FAMILY TRANSPORT
[2024-06-13] MEDS: Enoxaparin Sodium 40 MG/0.4 ML SYRINGE SUBCUT (20:06)
[2024-06-13] MEDS: Zolpidem Tartrate 5 MG TABLET PO (22:19)
[2024-06-14 02:48] VITALS: BP 120/56; PULSE 58; RESP 18; TEMP 37.3; O2SAT 95
[2024-06-14] MEDS: Dextrose 5 % and Lactated Ring 1,000 ML 125 ML IVCONT ×2 (03:56→15:19)
[2024-06-14 07:35] VITALS: BP 111/51; PULSE 61; RESP 16; TEMP 36.3; O2SAT 95
[2024-06-14] MEDS: Potassium Chloride/H20 10 MEQ/100 ML PIGGYBACK 100 MEQ IV ×2 (09:16→11:10)
[2024-06-14] MEDS: 0.9 % Sodium Chloride Flush 3 ML SYRINGE IVFLUSH ×2 (09:17→16:53)
[2024-06-14] MEDS: HYDROmorphone HCl 0.5 MG/0.5 ML SYRINGE 0.25 MG IVPUSH ×3 (09:45→18:41)
--- NOTE | 2024-06-14 10:17 | P.PNGS_ITS ---
Subjective Subjective Date of Service: 06/14/24 Interval history: Patient reports abdominal pain mainly in the left lower quadrant. She has had several bowel movements including 1 this morning. NG tube has minimal output. Physical Exam 2 Vital Signs: Vital Signs: Last Vital Signs Temp 97.4 F 06/14/24 07:35 Pulse 61 06/14/24 07:35 Resp 16 06/14/24 07:35 BP 111/51 L 06/14/24 07:35 Pulse Ox 95 06/14/24 07:35 O2 Del Method Room Air 06/14/24 07:35 BMI result Body Mass Index 25.4 Const: General: no acute distress Nutritional Appearance: well nourished Orientation/consciousness: patient oriented x3 Limitations: no limitations HEENT: Head: Yes normocephalic and Yes atraumatic Ears: hearing grossly normal bilaterally Resp: Effort & Inspection: normal respiratory effort, no audible wheezes, no cough and no respiratory distress Auscultation: clear to auscultation bilaterally Cardio: Jugular venous distension: no JVD Rate: regular rate Rhythm: r egular rhythm GI: Inspection: Yes incision Palpation (GI): Soft to palpation, nontender, no guarding and not rigid Percussion: Yes dullness to percussion A uscultation: abnormal bowel sounds Rectal Exam - Female: deferred Skin: Other: Warm, dry, no rash Neuro: General: patient oriented x3 Extrem: General: Yes no clubbing, cyanosis or edema Objective Data Active Medications Atorvastatin Calcium (Atorvastatin Calcium 80 Mg Tablet) 80 mg PO BEDTIME [facility] Dicyclomine HCl (Dicyclomine Hcl 10 Mg Capsule) 20 mg PO QID [facility] Enoxaparin Sodium (Enoxaparin Sodium 40 Mg/0.4 Ml Syringe) 40 mg SUBCUT Q24H [facility] Last Admin: 06/13/24 20:06 Dose: 40 mg Documented By: SUDEEP Escitalopram Oxalate (Escitalopram Oxalate 20 Mg Tablet) 20 mg PO DAILY [facility] Hydromorphone HCl (Hydromorphone Hcl 0.5 Mg/0.5 Ml Syringe) 0.25 mg IVPUSH Q3H PRN; Protocol PRN Reason: Pain, Severe (Pain Scale 7-10) Last Admin: 06/14/24 09:45 Dose: 0.25 mg Documented By: SHAN Dextrose/Lactated Ringer's (D5lr) 1,000 mls @ 125 mls/hr IVCONT .Q8H [facility] Last Infusion: 06/14/24 09:59 Dose: 0 mls/hr Documented By: SHAN Potassium Chloride (Potassium Chloride/H20) 10 meq in 100 mls @ 100 mls/hr IV Q1H [facility] Stop: 06/14/24 10:59 Last Admin: 06/14/24 09:16 Dose: 100 mls/hr Documented By: SHAN Montelukast Sodium (Montelukast Sodium 10 Mg Tablet) 10 mg PO BEDTIME [facility] Multi-Ingred Medicated Throat [place] (Throat [place], Medicated 177 Ml Bottle) 1 spray MUCOUS MEM Q2H PRN PRN Reason: Sore Throat Last Admin: 06/13/24 15:08 Dose: 1 spray Documented By: SINCERE Non-Formulary Medication (Acetaminophen) 650 mg PO TID PRN PRN Reason: pain Non-Formulary Medication (Linaclotide [Linzess]) 145 mcg PO DAILY [facility] Non-Formulary Medication (Pantoprazole) 40 mg PO DAILY@0630 [facility] Ondansetron HCl (Ondansetron Hcl 4 Mg/2 Ml Vial) 4 mg IVPUSH QID PRN PRN Reason: Nausea Oxycodone HCl (Oxycodone Hcl Immed Release 5 Mg Tablet) 5 mg PO Q6H PRN PRN Reason: Pain, Moderate(Pain Scale 4-6) Primidone (Primidone 50 Mg Tablet) 50 mg PO BEDTIME [facility] Sodium Chloride (0.9 % Sodium Chloride Flush 3 Ml Syringe) 3 ml IVFLUSH QSHIFT [facility] Last Admin: 06/14/24 09:17 Dose: 3 ml Documented By: SHAN Sucralfate (Sucralfate 1 Gm Tablet) 1 gm PO BID [facility] Topiramate (Topiramate 100 Mg Tablet) 100 mg PO BID [facility] Vitamin D (Cholecalciferol (Vitamin D3) 25 Mcg Tablet) 50 mcg PO DAILY [facility] Zolpidem Tartrate (Zolpidem Tartrate 5 Mg Tablet) 5 mg PO BEDTIME PRN PRN Reason: Insomnia Last Admin: 06/13/24 22:19 Dose: 5 mg Documented By: ERWIN Zolpidem Tartrate (Zolpidem Tartrate 5 Mg Tablet) 10 mg PO BEDTIME [facility] Labs 06/13/24 05:34 06/13/24 05:34 Procedures Date of Service Date of Service: 06/14/24 Progress Note: A&P Assessment and plan (1) Small bowel obstruction: Status: Acute Plan Patient is partial small-bowel obstruction has now improved. She is passing stool and NG tube output is minimal. Examination reveals her abdomen to be soft and nondistended. Plan: Remove NG tube and start clear liquid diet. We will restart medications as well. Patient encouraged to ambulate in the hallways. Time Spent With Patient Time: Total time managing care of this patient today ____ minutes. Quality Stroke Does the patient have a stroke diagnosis?: No VTE Prior VTE?: No VTE Risk Level:: Surgical - moderate VTE Device Contraindication: N/A - Device Ordered VTE Drug Contraindication: N/A - Med Ordered
[2024-06-14] MEDS: Escitalopram Oxalate 20 MG TABLET PO (11:09)
[2024-06-14] MEDS: Sucralfate 1 GM TABLET PO ×2 (11:09→21:33)
[2024-06-14] MEDS: Dicyclomine HCl 10 MG CAPSULE 20 MG PO ×3 (14:31→21:33)
[2024-06-14 15:31] VITALS: BP 134/59; PULSE 51; RESP 18; TEMP 37.1; O2SAT 98
[2024-06-14] MEDS: Lidocaine 4 % Patch ADH..PATCH 1 PATCH TRANSDERMA (18:59)
[2024-06-14 19:14] VITALS: BP 111/53; PULSE 53; RESP 18; TEMP 37.1; O2SAT 97
[2024-06-14] MEDS: Zolpidem Tartrate 5 MG TABLET 10 MG PO (21:32)
[2024-06-14] MEDS: Atorvastatin Calcium 80 MG TABLET PO (21:33)
[2024-06-14] MEDS: Montelukast Sodium 10 MG TABLET PO (21:33)
[2024-06-14] MEDS: Topiramate 100 MG TABLET PO (21:33)
[2024-06-14] MEDS: Primidone 50 MG TABLET PO (21:33)
[2024-06-14] MEDS: Enoxaparin Sodium 40 MG/0.4 ML SYRINGE SUBCUT (21:36)
[2024-06-15] MEDS: Dextrose 5 % and Lactated Ring 1,000 ML 125 ML IVCONT (00:46)
[2024-06-15 03:58] VITALS: BP 109/51; PULSE 54; RESP 16; TEMP 36.5; O2SAT 94
[2024-06-15] MEDS: Omeprazole 20 MG CAPSULE.DR PO (06:15)
[2024-06-15] MEDS: oxyCODONE HCl Immed Release 5 MG TABLET PO (06:15)
[2024-06-15 06:24] LABS: Anion Gap 6 (12-20); Blood Urea Nitrogen 4 mg/dL (9-16); Carbon Dioxide 25 mmol/L (22-29); Chloride 117 mmol/L (96-108); Creatinine Clr Calc Pharmacy 65.7; Estimated Glomerular Filt Rate > 60; Glucose Random 104 mg/dL (60-115); Potassium 3.1 mmol/L (3.3-5.1); Sodium 145 mmol/L (135-145)
--- NOTE | 2024-06-15 07:35 | PM.PNGS ---
Subjective Subjective Date of Service: 06/15/24 Interval history: Reports improvement in her abdominal pain, mild pain remains. Tolerating clear liquids without nausea or vomiting. Passing flatus and having liquid stools. Ambulated the halls numerous times yesterday. Physical Exam Vital Signs: Vital Signs: Last Vital Signs Temp 97.7 F 06/15/24 03:58 Pulse 54 06/15/24 03:58 Resp 16 06/15/24 03:58 BP 109/51 L 06/15/24 03:58 Pulse Ox 94 06/15/24 03:58 O2 Del Method Room Air 06/15/24 03:58 BMI result Body Mass Index 25.4 Const: General: comfortable, no acute distress and alert Orientation/consciousness: patient oriented x3 Resp: Effort & Inspection: normal respiratory effort GI: Inspection: No distended Palpation (GI): Soft to palpation, Tenderness to palpation present (GI) (very mild discomfort with palpation left side) and no guarding Skin: General skin exam: no rashes or lesions noted Neuro: General: patient oriented x3 and moves all extremities Objective Data Active Medications Acetaminophen (Acetaminophen 325 Mg Tablet) 650 mg PO TID PRN PRN Reason: Headache/Pain, Scale 1-10 Atorvastatin Calcium (Atorvastatin Calcium 80 Mg Tablet) 80 mg PO BEDTIME [facility] Last Admin: 06/14/24 21:33 Dose: 80 mg Documented By: ADINA Dicyclomine HCl (Dicyclomine Hcl 10 Mg Capsule) 20 mg PO QID [facility] Last Admin: 06/14/24 21:33 Dose: 20 mg Documented By: ADINA Enoxaparin Sodium (Enoxaparin Sodium 40 Mg/0.4 Ml Syringe) 40 mg SUBCUT Q24H [facility] Last Admin: 06/14/24 21:36 Dose: 40 mg Documented By: ADINA Escitalopram Oxalate (Escitalopram Oxalate 20 Mg Tablet) 20 mg PO DAILY [facility] Last Admin: 06/14/24 11:09 Dose: 20 mg Documented By: SHAN Hydromorphone HCl (Hydromorphone Hcl 0.5 Mg/0.5 Ml Syringe) 0.25 mg IVPUSH Q3H PRN; Protocol PRN Reason: Pain, Severe (Pain Scale 7-10) Last Admin: 06/14/24 18:41 Dose: 0.25 mg Documented By: SHAN Dextrose/Lactated Ringer's (D5lr) 1,000 mls @ 125 mls/hr IVCONT .Q8H [facility] Last Admin: 06/15/24 04:00 Dose: Not Given Documented By: ADINA Non-Admin Reason: IV Running Lidocaine (Lidocaine 4 % Patch Adh..Patch) 1 patch TRANSDERMA BEDTIME [facility]; Protocol Last Admin: 06/14/24 18:59 Dose: 1 patch Documented By: SHAN Montelukast Sodium (Montelukast Sodium 10 Mg Tablet) 10 mg PO BEDTIME [facility] Last Admin: 06/14/24 21:33 Dose: 10 mg Documented By: ADINA Multi-Ingred Medicated Throat [place] (Throat [place], Medicated 177 Ml Bottle) 1 spray MUCOUS MEM Q2H PRN PRN Reason: Sore Throat Last Admin: 06/13/24 15:08 Dose: 1 spray Documented By: SINCERE Non-Formulary Medication (Linaclotide [Linzess]) 145 mcg PO DAILY [facility] Omeprazole (Omeprazole 20 Mg Capsule.Dr) 20 mg PO DAILY@0630 [facility] Last Admin: 06/15/24 06:15 Dose: 20 mg Documented By: ADINA Ondansetron HCl (Ondansetron Hcl 4 Mg/2 Ml Vial) 4 mg IVPUSH QID PRN PRN Reason: Nausea Oxycodone HCl (Oxycodone Hcl Immed Release 5 Mg Tablet) 5 mg PO Q6H PRN PRN Reason: Pain, Moderate(Pain Scale 4-6) Last Admin: 06/15/24 06:15 Dose: 5 mg Documented By: ADINA Primidone (Primidone 50 Mg Tablet) 50 mg PO BEDTIME [facility] Last Admin: 06/14/24 21:33 Dose: 50 mg Documented By: ADINA Sodium Chloride (0.9 % Sodium Chloride Flush 3 Ml Syringe) 3 ml IVFLUSH QSHIFT [facility] Last Admin: 06/15/24 00:05 Dose: Not Given Documented By: ADINA Non-Admin Reason: IV Running Sucralfate (Sucralfate 1 Gm Tablet) 1 gm PO BID [facility] Last Admin: 06/14/24 21:33 Dose: 1 gm Documented By: ADINA Topiramate (Topiramate 100 Mg Tablet) 100 mg PO BID [facility] Last Admin: 06/14/24 21:33 Dose: 100 mg Documented By: ADINA Vitamin D (Cholecalciferol (Vitamin D3) 25 Mcg Tablet) 50 mcg PO DAILY [facility] Zolpidem Tartrate (Zolpidem Tartrate 5 Mg Tablet) 5 mg PO BEDTIME PRN PRN Reason: Insomnia Last Admin: 06/13/24 22:19 Dose: 5 mg Documented By: ERWIN Zolpidem Tartrate (Zolpidem Tartrate 5 Mg Tablet) 10 mg PO BEDTIME [facility] Last Admin: 06/14/24 21:32 Dose: 10 mg Documented By: ADINA Labs 06/13/24 05:34 06/15/24 05:44 Labs: Laboratory Results - last 24 hr 06/15/24 05:44 Hold Purple Top SEE NOTE Anion Gap 6 L Estim Creat Clear Calc 65.7 Estimated GFR > 60 Random Glucose 104 Calcium 8.0 L Procedures Date of Service Date of Service: 06/15/24 Progress Note: A&P Assessment and plan (1) Small bowel obstruction: Status: Acute Plan SBO resolved with good GI function, tolerating clears. Abd benign- soft, nondistended, very mild tenderness. Will advance to solid diet this morning. Patient encouraged to ambulate in the hallways. Possibly home later this morning if tolerating diet. Time Spent With Patient Time: Total time managing care of this patient today ____ minutes. Quality Stroke Does the patient have a stroke diagnosis?: No VTE Prior VTE?: No VTE Risk Level:: Surgical - moderate VTE Device Contraindication: N/A - Device Ordered VTE Drug Contraindication: N/A - Med Ordered
[2024-06-15 07:56] VITALS: BP 119/58; PULSE 51; RESP 14; TEMP 36.7; O2SAT 95
[2024-06-15] MEDS: Dicyclomine HCl 10 MG CAPSULE 20 MG PO ×2 (08:22→12:57)
[2024-06-15] MEDS: Sucralfate 1 GM TABLET PO (08:23)
[2024-06-15] MEDS: Escitalopram Oxalate 20 MG TABLET PO (08:23)
[2024-06-15] MEDS: Cholecalciferol (Vitamin D3) 25 MCG TABLET 50 MCG PO (08:23)
[2024-06-15] MEDS: Topiramate 100 MG TABLET PO (08:23)
[2024-06-15] MEDS: Acetaminophen 325 MG TABLET 650 MG PO (08:26)
--- NOTE | 2024-06-15 15:51 | PM.DS ---
DS: Providers Provider Date of Service: 06/15/24 Date of admission: 06/12/24 19:36 Date of discharge: 06/15/24 Primary care physician: Coleman Romo PA-C Attending physician on admission: Aaron Guy Consults: 06/12/24 19:26 Consult to General Surgery Stat Consulting Provider: [facility] [place] General Surgeons Reason for consultation: SBO Has provider been notified: Yes Attending physician on discharge: Aaron Guy DS: Diagnosis Discharge Diagnosis (1) Small bowel obstruction: Status: Acute DS: Summary Hospital Course Hospital Course: HPI AT ADMISSION: Ani Corea is a 68 year old female presenting with complaints of abdominal pain in the upper abdomen of 1 day duration associated with nausea and vomiting. She also reports no bowel movements for 2 days. She denies a previous history of similar symptoms. Pain became quite severe and she subsequently presented to the emergency department for further evaluation. She reports a prior history of an abdominal hysterectomy many years ago and denies any problems after that surgery. She also has a history of IBS in his currently taking Linzess. She presented to the emergency department and was noted to have a mildly elevated WBC. CT abdomen and pelvis revealed dilated loops of proximal small bowel and stomach with decompressed distal small bowel and colon suggestive of a small-bowel obstruction. A nasogastric tube was inserted in the emergency department. This morning she feels much improved with no further abdominal pain or nausea. HOSPITAL COURSE: She was admitted to the surgical service for further management of this partial small bowel obstruction. NGT was inserted in the ED and she felt improved following. Conservative measures were therefore continued with bowel rest, NGT decompression and IVF. She had resolution of her symptoms and had multiple bowel movements. Her NGT was discontinued and she was started on clear liquids. The following day, she felt well and was tolerating clear liquids without nausea or vomiting. Her abdomen was benign and soft. She was advanced to a solid diet. She was reassessed later in the day and was tolerating a solid diet and had good GI function. She felt ready for discharge. She was discharged to home on 06/15/24. Status at Discharge Functional status at discharge: independent ambulation Overall status at discharge: patient is progressing back to baseline Time Attestation Discharge Coordination Time (in mins): 30 Quality: Safe Use of Opioids Does Pt have an Active Cancer Diagnosis on the Problem List?: No Quality: Stroke Does the patient have a stroke diagnosis?: No Physical Exam Vital Signs: Vital Signs: Last Vital Signs Temp 98.1 F 06/15/24 07:56 Pulse 51 06/15/24 07:56 Resp 14 06/15/24 07:56 BP 119/58 L 06/15/24 07:56 Pulse Ox 95 06/15/24 07:56 O2 Del Method Room Air 06/15/24 07:56 BMI result Body Mass Index 25.4 Const: General: comfortable, no acute distress and alert Orientation/consciousness: patient oriented x3 GI: Inspection: No distended Palpation (GI): Soft to palpation, nontender and no guarding Percussion: Yes normal to percussion Skin: General skin exam: no rashes or lesions noted Neuro: General: patient oriented x3 Discharge Plan Discharge Anticipated Discharge Date/Time: 06/15/24 13:03 Patient Disposition: Home, Self-Care Discharge Diagnosis: Small bowel obstruction due to adhesions Referrals: Aaron Guy MD [Physician] - 1 Week PhysicianWyatt [Physician] - 1 Week Discharge Medications: Continued zolpidem 10 mg tablet 10 mg PO BEDTIME 30 Days Qty: 30 5RF sucralfate [Carafate] 1 gram tablet 1 g PO BID 90 Days Qty: 180 2RF acetaminophen 650 mg tablet extended release 650 mg PO TID PRN (Reason: pain) 30 Days Qty: 90 2RF Linzess 145 mcg capsule 145 mcg PO DAILY 90 Days Qty: 90 2RF primidone 50 mg tablet 50 mg PO BEDTIME 90 Days Qty: 90 2RF Emgality Pen 120 mg/mL pen injector 120 mg subcut QMONTH pantoprazole 40 mg tablet,delayed release (DR/EC) 40 mg PO DAILY@0630 gabapentin 800 mg tablet 800 mg PO TID PRN (Reason: Pain) atorvastatin 80 mg tablet 80 mg PO BEDTIME 90 Days Qty: 90 2RF cholecalciferol (vitamin D3) 50 mcg (2,000 unit) capsule 50 mcg PO DAILY 90 Days Qty: 90 1RF dicyclomine 20 mg tablet 20 mg PO QID 90 Days Qty: 360 3RF escitalopram oxalate 20 mg tablet 20 mg PO DAILY Qty: 90 2RF montelukast 10 mg tablet 10 mg PO BEDTIME 90 Days Qty: 90 3RF topiramate 100 mg tablet 100 mg PO BID 90 Days Qty: 180 2RF Discharge Orders: Discharge Order (Routine); Ordered 06/15/24 Ordered By: Aaron Guy Diet: Advance to usual diet Activity on Discharge: As tolerated Stand Alone Forms: Patient Portal Discharge page Print Language: Welsh Care Plan Goals: return to normal diet and activity Health Concerns: small bowel obstruction Plan of Treatment: Bowel rest, nasogastric tube decompression Assessment: Small bowel obstruction due to adhesions Discharge Date/Time: 06/15/24 14:15
== END 2024-06-15 14:15 | disposition home or self-care (01) | DRG 390 ==
LOC: HO.ED 15:17 → HO.EDOVER 19:46 → HO.S3 06-13 19:42
PROVIDERS: Physician Assistant Medical; Admitting Provider Surgery; Emergency Provider Emergency Medicine; PCP Physician Assistant; Visit Provider Surgery
DX: K56.51 Intestinal adhesions [bands], with partial obstruction (principal); Z20.822 Contact with and (suspected) exposure to COVID-19; Z87.440 Personal history of urinary (tract) infections; Z79.899 Other long term (current) drug therapy
CPT/HCPCS: 0241U; 36415; 74177; 80048; 80053; 81003; 83690; 83735; 84484; 85025; 85610; 93005; 99285; J0131; J1171; J1650; J2060; J2405; J3480; Q9967

== ENCOUNTER → 2024-06-12 14:02 | Outpatient (BNV) | payer MEDICARE, MEDICAID, SELFPAY | PROVIDERS: Emergency Provider Emergency Medicine; Visit Provider Internal Medicine Cardiovascular Disease | DX: R00.1 Bradycardia, unspecified (principal) | CPT/HCPCS: 93010 ==

== ENCOUNTER → 2024-06-12 14:17 | Outpatient (BNV) | payer MEDICARE, MEDICAID, SELFPAY | PROVIDERS: Admitting Provider Surgery; Emergency Provider Emergency Medicine; Visit Provider Radiology Diagnostic Radiology | DX: K56.609 Unspecified intestinal obstruction, unspecified as to partial versus complete obstruction (principal) | CPT/HCPCS: 74177 ==

== ENCOUNTER → 2024-06-12 19:36 | Outpatient (BNV) | payer MEDICARE, MEDICAID, SELFPAY | PROVIDERS: Admitting Provider Surgery; Emergency Provider Emergency Medicine; Visit Provider Surgery | DX: K56.609 Unspecified intestinal obstruction, unspecified as to partial versus complete obstruction (principal) | CPT/HCPCS: 99222; 99232 ==

== ENCOUNTER 2024-06-17 14:11 | Outpatient (AMB) | payer MEDICARE, MEDICAID, SELFPAY ==
--- NOTE | 2024-06-17 14:22 | MHC.PC.OV ---
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 Accompanied by: Self / Same As Patient Allergies morphine Allergy (Verified 06/17/24 14:43) Difficulty Breathing Medication List - Last Reconciled 06/17/24 by Coleman Romo PA-C acetaminophen ER 650 mg PO TID PRN 30 days atorvastatin 80 mg PO BEDTIME 90 days cholecalciferol (vitamin D3) 50 mcg PO DAILY 90 days dicyclomine 20 mg PO QID 90 days escitalopram oxalate 20 mg PO DAILY gabapentin 800 mg PO TID PRN galcanezumab-gnlm (Emgality Pen) 120 mg subcut QMONTH linaclotide (Linzess) 145 mcg PO DAILY 90 days montelukast 10 mg PO BEDTIME 90 days pantoprazole 40 mg PO DAILY@0630 primidone 50 mg PO BEDTIME 90 days sucralfate (Carafate) 1 g PO BID 90 days topiramate 100 mg PO BID 90 days zolpidem 10 mg PO BEDTIME 30 days Tobacco use date assessed: 05/04/24 Fall risk assessment: No Falls in past year Last assessed Fall Risk: 06/16/24 Dental Screening Dental Screen Date: 05/04/24 [facility] 06/15 SBO HPI Details Patient is a 68 old female here today for hospital discharge follow-up. Patient has a past medical history significant for generalized anxiety disorder, migraines, GERD, hyperlipidemia, lumbar and cervical disc disease. Dayan was recently admitted to [facility] for acute abdominal pain. She was found to have a partial small-bowel obstruction via CT abd. She was treated with conservative treatment through the surgical unit with NG decompression and IV fluids. Currently doing better though still has mild pain over left abdominal quadrant. She reports she is using the restroom. Unclear etiology to patient's partial obstruction though was thought to be due to adhesions. Of note she did start vaginal estrogen pill for her recurrent UTI that may have caused constipation. [facility] Information Date of Discharge 06/15/24 Discharged From [facility] Interactive Contact Date (Reference documentation from this date) 06/16/24 [facility] Medical History COVID-19 vaccine series completed Chronic cough Hyperlipidemia GERD (gastroesophageal reflux disease) Migraines Anxiety IBS (irritable bowel syndrome) Tremor [employer] (current) use of opiate analgesic Spondylosis of cervical spine Failed back syndrome, cervical Left cervical radiculopathy Surgical History S/P insertion of spinal cord stimulator Hx of hysterectomy, total History of tonsillectomy and adenoidectomy History of surgery on arm Status post debridement History of ankle surgery Family History Sister Breast cancer, Onset Age: 42 Social History Household Members: Spouse Household Members Other:: lives with , son and granddaughter Housing: House Are you a primary palliative care nurse practitioner to a significant other at home: No Do you presently have visiting nurse or other home services: No Alcohol intake: current Alcohol intake frequency: 0-2 drinks per day Alcohol type: wine Patient Tobacco Use Status: Never used Tobacco e-Cigarette/Vaping Use: Never Used Second Hand Smoke Exposure: No service: No Current occupational status: disabled 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 Kyle Dao, Carmita Espinal, Rashard Burgess and colleagues, with an educational babita from [employer]. Review of Systems Const Denies headache(s) Eyes Denies loss of vision ENT Denies vertigo, Denies dizziness, Denies headache(s) and Denies sore throat Card Denies chest pain, Denies leg edema and Denies lightheadedness Resp Denies cough, Denies hemoptysis and Denies wheezing GI Denies abdominal pain, Denies melena, Denies constipation, Denies diarrhea and Denies vomiting Denies urinary frequency, Denies dysuria and Denies urinary urgency Musc Denies arthralgias, Denies joint swelling, Denies numbness and Denies tingling Neuro Denies Abnormal speech present, Denies behavioral changes, Denies vertigo, Denies dizziness, Denies headache(s), Denies loss of vision, Denies memory loss, Denies numbness and Denies tingling Psych Denies anxiety, Denies behavioral changes, Denies depression, Denies memory loss and Denies panic attacks Jesus/Lymph Denies easy bleeding and Denies easy bruising Aller/Immun Denies wheezing Physical exam (Primary Care) Vital Signs: Last Vital Signs Temp 97.1 F 06/17/24 14:33 Pulse 55 06/17/24 14:33 BP 144/80 H 06/17/24 14:33 Pulse Ox 98 06/17/24 14:33 Oxygen Delivery Method Room Air 06/17/24 14:33 BMI result Body Mass Index 25.4 Tobacco/Smoking Status: Tobacco use Status Tobacco use date assessed 05/04/24 06/17/24 14:23 Patient Tobacco Use Status Never used Tobacco 06/17/24 14:23 e-Cigarette/Vaping Use Never Used 06/17/24 14:23 Thrive Assessment: Date of Thrive Assessment Date Thrive assessed 06/14/24 06/17/24 14:23 Const General: healthy appearing, no acute distress, alert and awake Nutritional Appearance: well nourished Orientation/consciousness: oriented to person, oriented to place and oriented to time HENMT Ears: TM's normal bilaterally General nose exam: Normal nasal mucous membranes and turbinates present Eyes Conjunctivae: conjunctivae normal Sclerae: sclerae normal Pupils: Equal, round and reactive pupils present Neck Neck: Yes no lymphadenopathy and Yes no JVD Thyroid: Thyroid normal Carotids: no bruits Resp Effort & Inspection: normal respiratory effort and not tachypneic Auscultation: no crackles, no rales, no rhonchi and no wheezes Cardio Rate: regular rate Rhythm: regular rhythm Heart sounds: no murmurs and normal S1 and S2 GI Palpation (GI): Soft to palpation, Tenderness to palpation present (GI), no hepatomegaly and no splenomegaly Auscultation: normal bowel sounds Skin General skin exam: no rashes or lesions noted and dry skin Neuro General: oriented to person, oriented to place and oriented to time Cranial nerves: Yes Equal, round and reactive pupils present Speech: No Abnormal speech present Gait exam (Neuro): Normal gait present Motor exam (neuro): no tremor noted Extrem Right upper extremity: full ROM Left upper extremity: full ROM Right lower extremity: full ROM; no edema Left lower extremity: full ROM; no edema Psych Mental Status: mental status grossly normal Speech and movement: Normal speech and movement present Affect: normal affect Attitude: cooperative Thought process: Normal thought process present Coding Level of Care Code Est Pt Level 4 (81026) Diagnoses Hospital discharge follow-up Z09 Small bowel obstruction K56.609 Assessment & Plan Assessment & Plan (1) Hospital discharge follow-up: Code(s): Z09 - Encounter for follow-up examination after completed treatment for conditions other than malignant neoplasm Category: Medical Plan: As per HPI (2) Small bowel obstruction: Code(s): K56.609 - Unspecified intestinal obstruction, unspecified as to partial versus complete obstruction Category: Medical Plan: As per HPI patient clinically improving. She reports she is using the bathroom though still does have some pain in the left abdominal quadrant. Will try to set patient up with a upper GI small-bowel series and refer to Gastroenterology for possible endoscopy. Orders: Orders FL upper GI small bowel Today K56.609 - Unspecified intestinal obstruction, unspecified as to partial versus complete obstruction Referrals Gastroenterology Referral K56.609 - Unspecified intestinal obstruction, unspecified as to partial versus complete obstruction
[2024-06-17 14:33] VITALS: BP 144/80; PULSE 55; TEMP 36.2; O2SAT 98; BMI 25.4
== END 2024-06-17 15:03 | disposition home or self-care (01) ==
LOC: HO.HMCH 14:11
PROVIDERS: PCP Physician Assistant; Visit Provider Physician Assistant
DX: Z09 Encounter for follow-up examination after completed treatment for conditions other than malignant neoplasm (principal); K56.609 Unspecified intestinal obstruction, unspecified as to partial versus complete obstruction

== ENCOUNTER → 2024-06-17 14:11 | Outpatient (BNVA) | payer MEDICARE, OTHER, SELFPAY | PROVIDERS: PCP Physician Assistant; Visit Provider Physician Assistant | DX: Z09 Encounter for follow-up examination after completed treatment for conditions other than malignant neoplasm (principal); K56.609 Unspecified intestinal obstruction, unspecified as to partial versus complete obstruction | CPT/HCPCS: 99212 ==

== ENCOUNTER 2024-07-03 15:05 | Outpatient (REF) | payer MEDICARE, MEDICAID, SELFPAY ==
--- NOTE | ~2024-07-03 | US_ITS ---
CLINICAL HISTORY: N39.0 - Urinary tract infection, site not specified US Urinary Bladder Comparison: None Findings: The urinary bladder is unremarkable. Prevoid volume: 168 mLPostvoid volume: 4.0 mL Ureteral jets are visualized bilaterally. IMPRESSION: Normal urinary bladder This document has been electronically signed by: Tyron Owens MD on 07/04/2024 08:49:54
== END 2024-07-03 15:06 | disposition home or self-care (01) ==
LOC: HO.HMGCX 15:05
PROVIDERS: PCP Physician Assistant; Visit Provider Physician Assistant
DX: N39.0 Urinary tract infection, site not specified (principal)
CPT/HCPCS: 76857

== ENCOUNTER → 2024-07-03 15:14 | Outpatient (BNV) | payer MEDICARE, MEDICAID, SELFPAY | PROVIDERS: PCP Physician Assistant; Visit Provider Specialist | DX: N39.0 Urinary tract infection, site not specified (principal) | CPT/HCPCS: 76857 ==

== ENCOUNTER 2024-07-21 15:09 | Outpatient (AMB) | payer MEDICARE, MEDICAID, SELFPAY ==
--- NOTE | 2024-07-21 15:17 | MHC.OFFVIS ---
Intake Visit Reasons: recurrent UTI Intake Note: New Patient presents for initial visit for recurrent uti and interstitial cystitis Urology Medications: Elmiron Blood Thinner: none PVR: 0ml's [employer] Consultant Required: No Accompanied by: Self / Same As Patient Allergies morphine Allergy (Verified 07/21/24 15:54) Difficulty Breathing HPI Comments Details: Ani is a very pleasant 68-year-old female patient of Dr. Romo. She has a past medical history of small-bowel obstruction, tremors, chronic cough, hyperlipidemia, GERD, migraines, anxiety, IBS, and spondylosis of cervical spine. She presents to the office today as a new patient for ongoing lower urinary tract symptoms she has been experiencing. In discussion with the patient today she reports noting over the last 6 months to be having ongoing issues with dysuria as well as bladder pressure. She reports having followed up with her PCP and has undergone multiple treatment options for a potential urinary tract infection however continues with dysuria and bladder pressure. She reports recently starting Elmiron however has not found this helpful. It appears PCP ordered recent imaging these results were communicated and reviewed with the patient today. 07/17 the urinary bladder is unremarkable. Pre void bladder volume is approximately 170 mL. Postvoid bladder volume is approximately 5 mL. She continues to report episodes of bladder pressure and dysuria. In office urinalysis results reviewed with the patient today negative leukocytes negative nitrates negative microscopic hematuria. We discussed at length potential causes of lower urinary tract symptoms patient was experiencing as well as further treatment options and risks and benefits of these treatment options we also discussed bladder triggers and irritants. We discussed potential near future in office cystoscopy if symptoms continue and or worsen. Will send urine today for microgen we discussed potential co-pay patient was aware and continues to be agreeable to obtaining microgen for further assessment evaluation. We did discussed correlation of bowel issues in relation to lower urinary tract symptoms. PVR today 0 mL. When asked she denies urinary urgency, urinary frequency, incontinence, nocturia, hematuria, foul smelling urine, changes to urinary stream, flank pain, fever, and or chills. She otherwise offers no other issues or concerns at this time. [facility] Medical History Small bowel obstruction COVID-19 vaccine series completed Chronic cough Hyperlipidemia GERD (gastroesophageal reflux disease) Migraines Anxiety IBS (irritable bowel syndrome) Tremor [facility] (current) use of opiate analgesic Spondylosis of cervical spine Failed back syndrome, cervical Left cervical radiculopathy Surgical History S/P insertion of spinal cord stimulator Hx of hysterectomy, total History of tonsillectomy and adenoidectomy History of surgery on arm Status post debridement History of ankle surgery Family History Sister Breast cancer, Onset Age: 42 Social History Household Members: Spouse Household Members Other:: lives with , son and granddaughter Housing: House Are you a primary home health care worker to a significant other at home: No Do you presently have visiting nurse or other home services: No Alcohol intake: current Alcohol intake frequency: 0-2 drinks per day Alcohol type: wine Patient Tobacco Use Status: Never used Tobacco e-Cigarette/Vaping Use: Never Used Second Hand Smoke Exposure: No service: No Current occupational status: disabled 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 Cognitive needs: No Hearing needs: No Vision needs: Yes (glasses) Review of Systems Const All systems reviewed & are unremarkable except as noted in HPI and below Physical Exam Const General: cooperative, healthy appearing, comfortable, no acute distress, well developed, alert and awake Nutritional Appearance: average body habitus Orientation/consciousness: patient oriented x3 Limitations: no limitations HEENT Head: Yes normal to inspection, Yes normocephalic and Yes atraumatic Ears: hearing grossly normal bilaterally Eyes General: appearance normal, both eyes and all related structures Neck Neck: Yes normal visual inspection and Yes trachea midline Chest Chest palpation & inspection: normal inspection of the chest Resp Effort & Inspection: normal respiratory effort and able to speak in complete sentences Cardio Rate: regular rate GI Inspection: Yes normal to inspection General: Yes no CVA tenderness Back/Spine/Pelvis Back: no CVA tenderness Skin General skin exam: no rashes or lesions noted Neuro General: patient oriented x3 Extrem General: Yes normal to inspection Psych Appearance: grossly normal and well kempt Mental Status: mental status grossly normal Speech and movement: Normal speech and movement present and Clear speech present Affect: normal affect Attitude: cooperative Thought process: Normal thought process present Thought content: Normal thought content present Insight: Fair insight present (Psych) Judgement: Fair judgement present (Psych) Office Procedures Post Void Residual Post Residual Void Post Void Residual (PVR): 0 [id number] Void Residual by ultrasound Results AMB Urinalysis, Automated UA Leukoctes 0 Edvin/uL Last Edit by Prabhakar Valdez on 07/21/24 15:56 UA Nitrite Last Edit by Prabhakar Valdez on 07/21/24 15:56 UA Urobilinogen 0.2 mg/dL Last Edit by [employer] Valdez on 07/21/24 15:56 UA Protein 0 mg/dL Last Edit by [employer] on 07/21/24 15:56 UA pH 6.5 Last Edit by [employer] Valdez on 07/21/24 15:56 UA Blood 0 Naif/uL Last Edit by [employer] on 07/21/24 15:56 UA Specific [place] 1.010 Last Edit by [employer] Valdez on 07/21/24 15:56 UA Ketone Last Edit by [employer] Valdez on 07/21/24 15:56 UA Bilirubin 0 mg/dL Last Edit by [employer] on 07/21/24 15:56 UA Glucose 0 mg/dL Last Edit by [employer] on 07/21/24 15:56 Results Reviewed Results Reviewed: Laboratory Last Values Urine pH (Auto) 6.5 07/21/24 15:55 Specific [place] (Auto) 1.010 07/21/24 15:55 Urine Protein (Auto) 0 mg/dL 07/21/24 15:55 Glucose (UA)(Auto) 0 mg/dL 07/21/24 15:55 Urine Blood (Auto) 0 Naif/uL 07/21/24 15:55 Urine Bilirubin (Auto) 0 mg/dL 07/21/24 15:55 Urine Urobilinogen (Auto) 0.2 mg/dL 07/21/24 15:55 Leukocyte Esterase (Auto) 0 Edvin/uL 07/21/24 15:55 Date of Service: 07/03/24 Procedure(s): US bladder US Urinary Bladder Comparison: None Findings: The urinary bladder is unremarkable. Prevoid volume: 168 mLPostvoid volume: 4.0 mL Ureteral jets are visualized bilaterally. IMPRESSION: Normal urinary bladder Assessment & Plan Assessment & Plan (1) Dysuria: Code(s): R30.0 - Dysuria Category: Medical (2) Sensation of pressure in bladder area: Code(s): R39.89 - Other symptoms and signs involving the genitourinary system Category: Medical Plan In office urinalysis results reviewed with the patient today; as noted above will send for microgen PVR 0 mL. Recent bladder ultrasound results reviewed with the patient today; as noted above. We discussed at length potential causes of lower urinary tract symptoms patient was experiencing We discussed further treatment options and risks and benefits of these treatment options. Stop Elmiron Start low-dose Cialis 5 mg daily as discussed and prescribed. We discussed bladder triggers/irritants. We discussed importance of adequate hydration relation to lower urinary tract symptoms as well as overall health and well-being. Will obtain renal ultrasound for further assessment evaluation. We discussed potential near future in office cystoscopy if symptoms persist and/or worsen. Follow-up in 1-3 months with imaging and PVR; or sooner with any issues, concerns, and or questions. Orders: Orders AMB Post Void Residual by ultrasound Today N30.10 - Interstitial cystitis (chronic) without hematuria, N39.41 - Urge incontinence AMB Urinalysis Automated Today Z13.9 - Encounter for screening, unspecified US renal BI Today N20.0 - Calculus of kidney Medications: New tadalafil (Cialis) [id number] [facility] [id number] Member [id number] 5 mg PO DAILY 90 days 90 tabs 0RF Discontinued pentosan polysulfate sodium (Elmiron) Discontinued Reason: Doctor's Order 100 mg PO TID 30 days 90 caps 0RF N30.10 - Interstitial cystitis (chronic) without hematuria, N39.0 - Urinary tract infection, site not specified Patient Instructions: The patient had an opportunity to ask questions regarding the treatment plan. All questions were answered. Physical exam, labs, and imaging were discussed and reviewed in detail. As well as risks, benefits, and discussion of treatment choices. No major barriers to understanding were identified. The patient expressed understanding and agreement with the above treatment plan. The patient was made aware they should contact our office by phone for worsening of their current condition, the appearance of new symptoms, or with any questions or concerns. Compliance is encouraged with any medications and follow up testing that is ordered. It is a privilege to be allowed the opportunity to participate in? your urological care.? Again, if you have any questions or concerns If you have any questions or concerns please do not hesitate to contact me. The office is [phone]. This note is constructed using voice recognition software. While every effort has been made to ensure accuracy supervisor shaving and splitting errors may have been included. Yours sincerely, BERTO Puri-WILDA Coding Level of Care Code New Pt Level 4 (72000) Diagnoses Dysuria R30.0 Sensation of pressure in bladder area R39.89 CPT Codes Post Residual Void - PVR CPT Code: 06836-Uwtj Void Residual by ultrasound ([id number])
== END 2024-07-21 16:04 | disposition home or self-care (01) ==
LOC: HO.HUSH 15:10
PROVIDERS: PCP Physician Assistant; Visit Provider Nurse Practitioner Family
DX: R30.0 Dysuria (principal); R39.89 Other symptoms and signs involving the genitourinary system; Z13.9 Encounter for screening, unspecified
CPT/HCPCS: 99204

== ENCOUNTER → 2024-07-21 15:09 | Outpatient (BNVA) | payer MEDICARE, MEDICAID, SELFPAY | PROVIDERS: PCP Physician Assistant; Visit Provider Nurse Practitioner Family | DX: N30.10 Interstitial cystitis (chronic) without hematuria (principal); N39.41 Urge incontinence; N20.0 Calculus of kidney; R30.0 Dysuria; R39.89 Other symptoms and signs involving the genitourinary system | CPT/HCPCS: 51798; 81003; 99202 ==

== ENCOUNTER 2024-08-14 10:23 | Outpatient (REF) | payer MEDICARE, MEDICAID, SELFPAY | END 2024-08-14 10:24 | disposition home or self-care (01) | LOC: HO.HMGCLDS 10:23 | PROVIDERS: PCP Physician Assistant; Visit Provider Nurse Practitioner Family | DX: R39.89 Other symptoms and signs involving the genitourinary system (principal); N39.0 Urinary tract infection, site not specified | CPT/HCPCS: 87086 ==

== ENCOUNTER 2024-09-28 08:22 | Outpatient (REF) | payer MEDICARE, MEDICAID, SELFPAY ==
--- NOTE | ~2024-09-28 | US_ITS ---
CLINICAL HISTORY: N20.0 - Calculus of kidney US of kidneys Comparison: None Findings: Bilateral kidneys are small, right kidney measures 7.9 cm in length, left kidney 8.0 cm in length, mild cortical thinning. No hydronephrosis or mass. Right renal 7 mm cyst in the upper pole, 2 mm calculus in the lower pole. Left renal multiple nonshadowing echogenic foci. No abnormal vascular flow of the either kidney. Impression: 1. Mildly atrophic kidneys. 2. Nonobstructing right renal calculus. 3. Multiple nonshadowing echogenic foci of the left kidney, artifacts versus nonobstructing nephrolithiasis, CT renal stone protocol can better evaluate if warranted. This document has been electronically signed by: Joan Gilmore MD on 09/28/2024 15:31:42
== END 2024-09-28 08:23 | disposition home or self-care (01) ==
LOC: HO.HMGCX 08:22
PROVIDERS: PCP Physician Assistant; Visit Provider Nurse Practitioner Family
DX: N20.0 Calculus of kidney (principal)
CPT/HCPCS: 76775

== ENCOUNTER → 2024-09-28 08:38 | Outpatient (BNV) | payer MEDICARE, MEDICAID, SELFPAY | PROVIDERS: PCP Physician Assistant; Visit Provider Radiology Diagnostic Radiology | DX: N20.0 Calculus of kidney (principal) | CPT/HCPCS: 76775 ==

== ENCOUNTER 2024-10-20 14:25 | Outpatient (AMB) | payer MEDICARE, MEDICAID, SELFPAY ==
--- OUTSIDE RECORDS SUMMARY | 2024-10-08 05:20 | XMS_ITS ---
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 Name Role Phone Coleman Romo Primary Care Provider UnavailKyle Dominguez Unavailable [phone] Allergies Allergen (clinical drug ingredient) Drug/Non Drug Allergy documented on EMR Reaction Allergy Type Onset Date Status morphine Morphine Unknown Drug Allergy Active REASON FOR VISIT Patient presents today for an unspecified internal obstruction Medications Medication SIG (Take, Route, Frequency, Duration) Notes Start Date End Date Status Pantoprazole Sodium 40 MG 1 tablet 1/2 t o 1 hour before morning meal Orally Once a day Active Montelukast Sodium 10 MG 1 tablet Orally Once a day Active linaCLOtide 145 MCG 1 capsule at least 3 0 minutes before the first meal of the day on an empty stomach Orally Once a day Active Carafate 1 GM 1 tablet on an empty stomach Orally Twice a day Active Primidone 50 MG 1 tablet Orally Once a day Active Zolpidem Tartrate 10 MG 1 tablet at bedt bibi as needed Orally Once a day Active Cholecalciferol 25 MCG (1000 UT) 2 capsules Orally Once a day Active Topiramate 100 MG 1 tablet Orally twic day Active Atorvastatin Calcium 80 MG 1 tablet Oral ly Once a day Active Acetaminophen ER 650 MG 1 tablets as nee ded Orally every day Active Galcanezumab-gnlm 120 MG/ML as directed Subcutaneous Active Gabapentin 800 MG 1 tablet Orally thre e times a day Active Escitalopram Oxalate 20 MG 1 tablet Oral ly Once a day Active Dicyclomine HCl 20 MG 1 tablet Orally fo ur times a day Active Social History AUDIT-C (Standard) Question Answer Notes Did you have a drink contain ing alcohol in the past year? Yes How often did you have a dri nk containing alcohol in the past year? Monthly or less (1 point) How many drinks did you have on a typical day when you were drinking in the past year? 1 or 2 drinks (0 point) How often did you have six o r more drinks on one occasion in the past year? Never (0 point) Points 1 Interpretation Negative Section Notes: Nonsmoker; no sig alcohol Problems Problem Type SNOMED Code ICD Code Onset Dates Problem Status W/U Status Risk Notes Problem Colon cancer screening (103069831) Colon cancer screening (Z12.11) Active confirmed Problem Obstruction of small intestine co-occurrent and due to peritoneal adhesions (779884267) Small bowel obstruction due to adhesions (K56.50) Active confirmed Problem Gastroesophageal reflux disease (925948537) GERD without esophagitis (K21.9) Active confirmed Problem Constipation (88061677) Constipation (K59.00) Active confirmed Vital Signs Blood pressure systolic 01 mm Hg 10/09/19 25 Blood pressure diastolic 01 mm Hg 025 Heart Rate 72 /min 10/08/2024 Height 62.5 in 10/08/2024 Weight 122.8 lbs 10/08/2024 BMI 22.1 kg/m2 10/08/2024 Encounters Encounter Location Date Provider Diagnosis [facility] [address] [place] [address] 10/08/2024 Kyle Vitale Colon cancer screeni ng Z12.11 ; Small bowel obstruction due to adhesions K56.50 ; GERD without esophagitis K21.9 and Constipation K59.00 Assessments Encounter Date Diagnosis (ICD Code) Assessment Notes Treatment Notes Treatment Clinical Notes Section Notes 10/08/2024 Colon cancer screening (ICD-10 - Z12.11) Repeat colonoscopy 03/2026 Ask Juanjose Deshpandeon about getting a Cologuard test- -let me know the result- if + would do a colonoscopy sooner Overall, Aristides appears quite well. We did review her history of the recent small bowel obstruction and discussed the etiology being that of adhesions from her previous hysterectomy. At this point she is asymptomatic and I do not think any further evaluation of that is required. We did review that obviously if she has recurrent problems she would need to go to the ER for evaluation of that. I do not think she needs any further imaging studies or endoscopic evaluation for that issue at the present time. We did discuss that if she had a negative colonoscopy about 8 years ago she should have a repeat colonoscopy in 2026 for further screening. I did advise her to ask you about obtaining a Cologuard test in the interim. I advised her that if that is positive she should be referred back to see me and then we can schedule a colonoscopy earlier than 2026 on that basis. It sounds like the pantoprazole is working well for her and I did advise her to continue that. I do not think she has any further endoscopic evaluation in regard to reflux at this time. Her Linzess seems to be working well for her in regard to her constipation and I did advise her to continue that as well. If things are otherwise well I will see her in 2026 for follow-up visit to schedule a screening colonoscopy. I did advise her to certainly contact me in the interim if she has any problems or questions I can be of assistance with. Aristides was comfortable with this plan. Thank you again for allowing me to participate in Aristides's care. I shall continue to keep you advised of her progress. 10/08/2024 Small bowel obstruction due to adhesions (ICD-10 - K56.50) Overall, Aristides appears quite well. We did review her history of the recent small bowel obstruction and discussed the etiology being that of adhesions from her previous hysterectomy. At this point she is asymptomatic and I do not think any further evaluation of that is required. We did review that obviously if she has recurrent problems she would need to go to the ER for evaluation of that. I do not think she needs any further imaging studies or endoscopic evaluation for that issue at the present time. We did discuss that if she had a negative colonoscopy about 8 years ago she should have a repeat colonoscopy in 2026 for further screening. I did advise her to ask you about obtaining a Cologuard test in the interim. I advised her that if that is positive she should be referred back to see me and then we can schedule a colonoscopy earlier than 2026 on that basis. It sounds like the pantoprazole is working well for her and I did advise her to continue that. I do not think she has any further endoscopic evaluation in regard to reflux at this time. Her Linzess seems to be working well for her in regard to her constipation and I did advise her to continue that as well. If things are otherwise well I will see her in 2026 for follow-up visit to schedule a screening colonoscopy. I did advise her to certainly contact me in the interim if she has any problems or questions I can be of assistance with. Aristides was comfortable with this plan. Thank you again for allowing me to participate in Aristides's care. I shall continue to keep you advised of her progress. 10/08/2024 GERD without esophagitis (ICD-10 - K21.9) Continue Pantoprazole Overall, Aristides appears quite well. We did review her history of the recent small bowel obstruction and discussed the etiology being that of adhesions from her previous hysterectomy. At this point she is asymptomatic and I do not think any further evaluation of that is required. We did review that obviously if she has recurrent problems she would need to go to the ER for evaluation of that. I do not think she needs any further imaging studies or endoscopic evaluation for that issue at the present time. We did discuss that if she had a negative colonoscopy about 8 years ago she should have a repeat colonoscopy in 2026 for further screening. I did advise her to ask you about obtaining a Cologuard test in the interim. I advised her that if that is positive she should be referred back to see me and then we can schedule a colonoscopy earlier than 2026 on that basis. It sounds like the pantoprazole is working well for her and I did advise her to continue that. I do not think she has any further endoscopic evaluation in regard to reflux at this time. Her Linzess seems to be working well for her in regard to her constipation and I did advise her to continue that as well. If things are otherwise well I will see her in 2026 for follow-up visit to schedule a screening colonoscopy. I did advise her to certainly contact me in the interim if she has any problems or questions I can be of assistance with. Aristides was comfortable with this plan. Thank you again for allowing me to participate in Aristides's care. I shall continue to keep you advised of her progress. 10/08/2024 Constipation (ICD-10 - K59.00) Continue Linzess daily Overall, Aristides appears quite well. We did review her history of the recent small bowel obstruction and discussed the etiology being that of adhesions from her previous hysterectomy. At this point she is asymptomatic and I do not think any further evaluation of that is required. We did review that obviously if she has recurrent problems she would need to go to the ER for evaluation of that. I do not think she needs any further imaging studies or endoscopic evaluation for that issue at the present time. We did discuss that if she had a negative colonoscopy about 8 years ago she should have a repeat colonoscopy in 2026 for further screening. I did advise her to ask you about obtaining a Cologuard test in the interim. I advised her that if that is positive she should be referred back to see me and then we can schedule a colonoscopy earlier than 2026 on that basis. It sounds like the pantoprazole is working well for her and I did advise her to continue that. I do not think she has any further endoscopic evaluation in regard to reflux at this time. Her Linzess seems to be working well for her in regard to her constipation and I did advise her to continue that as well. If things are otherwise well I will see her in 2026 for follow-up visit to schedule a screening colonoscopy. I did advise her to certainly contact me in the interim if she has any problems or questions I can be of assistance with. Aristides was comfortable with this plan. Thank you again for allowing me to participate in Aristides's care. I shall continue to keep you advised of her progress. Plan Of Treatment Treatment Notes Assessment Notes Colon cancer screening Repeat colonoscopy 03/2026 Ask Juanjose Romo about getting a Cologuard test- -let me know the result- if + would do a colonoscopy sooner GERD without esophagitis Continue Pantop razole Constipation Continue Linzess diogenes ly Progress Notes * ARISTIDES LU LDOB:[birth year] (69 yo F)Acc No.[id number]:10/08/2024 Progress Notes Patient: ARISTIDES HARDEN Provider: Karon Vitale MD :1955 A ge:69 Y S ex:Female Date:10/08/2024 Address:[address] [place], [place] [id number] Pcp:Coleman Romo Subjective: * Chief Complaints: * 1 . Patient presents today for an unspecified internal obstruction. * HPI: i ncontinence: I saw Aristides in consultation today in regard to her recent history of a small bowel obstruction, as well as discussion of colorectal cancer screening, constipation, and gastroesophageal reflux. As you know, Aristides is a generally healthy 69-year-old female who presently feels well. She was hospitalized in May for several days with a small bowel obstruction that resolved with nasogastric tube decompression. A CT scan described a small bowel obstruction but without any sign of intra-abdominal mass or other pathology. Since her discharge from the hospital she has been well and without any recurrent symptoms of obstruction. She has had a previous complete hysterectomy but no other abdominal surgeries. She has had no previous history of bowel obstructions. She does describe a negative colonoscopy about [address] Ye in [place]. She reports that was her 1 and only colonoscopy. She also describes a negative upper endoscopy at that time as well. She denies any known family history of colorectal cancer. She reports that she is presently eating well and denies any significant heartburn or dysphagia on her daily pantoprazole. Her bowel movements are been regular with the use of a daily Linzess. She has not noticed any hematochezia nor melena. She currently denies any abdominal pain, abdominal distention, jaundice, nor unintentional weight loss. * Medical History: S DANNY in 05/2024 resolved with NG tube, Denies [place],DM,CVA,renal disease, Interstitial cystitis, Neg. colonoscopy about [address] Ye- approx 2016, Migraines, GERD, Hyperlipidemia, Constipation, Neuropathy in feet, Anxiety/Depression. * Surgical History: T AH , Spinal stimulator , Fractured ankle had screws and rods but then removed later . * Hospitalization/Major Diagno stic Procedure: S DANNY June 2024 . * Family History: F ather: . M other: . No family history of colon cancer, polyps , nor liver disease. * Social History: M iscellaneous: M arital status: . Occupation: retired. D rug/Alcohol: A HIRA-C (Standard) D id you have a drink containing alcohol in the past year? Y es,?How often did you have a drink containing alcohol in the past year? M onthly or less (1 point), H ow many drinks did you have on a typical day when you were drinking in the past year? 1 or 2 drinks (0 point), H ow often did you have six or more drinks on one occasion in the past year? N ever (0 point), P oints 1 , I nterpretation N egative. N onsmoker; no sig alcohol. * Medications: T aking Zolpidem Tartrate 10 MG Tablet 1 tablet at bedtime as needed Orally Once a day , Taking Topiramate 100 MG Tablet 1 tablet Orally twicea day , Taking Carafate 1 GM Tablet 1 tablet on an empty stomach Orally Twice a day , Taking Primidone 50 MG Tablet 1 tablet Orally Once a day , Taking Pantoprazole Sodium 40 MG Tablet Delayed Release 1 tablet 1/2 to 1 hour before morning meal Orally Once a day , Taking Montelukast Sodium 10 MG Tablet 1 tablet Orally Once a day , Taking linaCLOtide 145 MCG Capsule 1 capsule at least 30 minutes before the first meal of the day on an empty stomach Orally Once a day , Taking Galcanezumab-gnlm 120 MG/ML Solution Auto-injector as directed Subcutaneous , Taking Gabapentin 800 MG Tablet 1 tablet Orally three times a day , Taking Escitalopram Oxalate 20 MG Tablet 1 tablet Orally Once a day , Taking Dicyclomine HCl 20 MG Tablet 1 tablet Orally four times a day , Taking Cholecalciferol 25 MCG (1000 UT) Capsule 2 capsules Orally Once a day , Taking Atorvastatin Calcium 80 MG Tablet 1 tablet Orally Once a day , Taking Acetaminophen ER 650 MG Tablet Extended Release 1 tablets as needed Orally every day , Medication List reviewed and reconciled with the patient * Allergies: M orphine. Objective: * Vitals: W t:122.8lbs, Ht:62.5in, BMI: 22.1 Index, BP:01/01mm Hg, HR:72/min, Ht-cm: 158.75, Wt-k.7. Assessment: * Assessment: 1. C olon cancer screening - Z12.11 (Primary) 2 . S mall bowel obstruction due to adhesions - K56.50 3 . G ERD without esophagitis - K21.9 4 . C onstipation - K59.00 Overall, Aristides appears quite well. We did review her history of the recent small bowel obstruction and discussed the etiology being that of adhesions from her previous hysterectomy. At this point she is asymptomatic and I do not think any further evaluation of that is required. We did review that obviously if she has recurrent problems she would need to go to the ER for evaluation of that. I do not think she needs any further imaging studies or endoscopic evaluation for that issue at the present time. We did discuss that if she had a negative colonoscopy about 8 years ago she should have a repeat colonoscopy in 2026 for further screening. I did advise her to ask you about obtaining a Cologuard test in the interim. I advised her that if that is positive she should be referred back to see me and then we can schedule a colonoscopy earlier than 2026 on that basis. It sounds like the pantoprazole is working well for her and I did advise her to continue that. I do not think she has any further endoscopic evaluation in regard to reflux at this time. Her Linzess seems to be working well for her in regard to her constipation and I did advise her to continue that as well. If things are otherwise well I will see her in 2026 for follow-up visit to schedule a screening colonoscopy. I did advise her to certainly contact me in the interim if she has any problems or questions I can be of assistance with. Aristides was comfortable with this plan. Thank you again for allowing me to participate in Aristides's care. I shall continue to keep you advised of her progress. Plan: * Treatment: 2. G ERD without esophagitis Notes: Continue Pantoprazole 3. C onstipation Notes: Continue Linzess daily * Preventive Medicine: Urinary Incontinence: U rinary Incontinence A ssessment: A bsent. Screenings: F all Risk Screening F all Risk Assessment: N o falls in the past year, S creening: N o falls in the past year. * * The named appointment provid er may or may not be the originator of this progress note, and it is not deemed complete until electronically signed by the appointment provider. Sign off status: Pending * Provider: Karon Vitale MD Date: 10/08/2024 Generated for Manasa gonzalez/Eh/Kayy on: 10/20/2024 03:04 PM EDT
--- NOTE | 2024-10-20 14:31 | MHC.OFFVIS ---
Intake Visit Reasons: Cysto/ultrasound follow up(set) Intake Note: Patient is present for CYSTO/ULTRASOUND F/U Urology Medication:TADALAFIL Antibiotic Allergy:NONE Blood Thinner:NONE Allergies morphine Allergy (Verified 07/21/24 15:54) Difficulty Breathing HPI Comments Details: Ani is a very pleasant 69-year-old female patient of Dr. Romo. She has a past medical history of small-bowel obstruction, tremors, chronic cough, hyperlipidemia, GERD, migraines, anxiety, IBS, and spondylosis of cervical spine. She presents to the office today for follow-up. Of note, patient was last seen a proximally 3 months ago as a new patient for ongoing lower urinary tract symptoms of dysuria and bladder pressure she has been experiencing at which time her urine was sent for microgen testing as well as a retroperitoneal ultrasound was ordered for further assessment evaluation. These results were reviewed and communicated with the patient today. 10/16 bilateral kidneys are small mildly atrophic, nonobstructing right renal calculus measuring a proximally 2 mm. Question of multiple nonobstructing echogenic foci of the left kidney verses artifacts. The urinary bladder is normal and unremarkable per radiology report. Microgen results are as follows: microgen: 08/16 Streptococcus vestibularis, bacteroides stercors, alistipes, Streptococcus anginous; 09/16 Staphylococcus epidermis She reports having completed antibiotic therapy as prescribed (cefuroxime, fluconazole, and Augmentin) she reports despite completion of antibiotic therapy she does continue to experience episodes of bladder pressure and dysuria. On exam today mild atrophy noted to the urethra. In office cystoscopy was performed mild irritation noted throughout the bladder as well as mild trabeculations otherwise no bladder lesions noted. We did discuss trial of Estrace cream and methenamine and vitamin-C. In office urinalysis results reviewed with the patient today. When asked she does report to be drinking plenty of water daily. We did discussed potential causes of lower urinary tract symptoms patient is experiencing as well as further treatment options and risks and benefits of these treatment options. We discussed bladder triggers and irritants. When asked she denies urinary urgency, urinary frequency, incontinence, nocturia, hematuria, foul smelling urine, changes to urinary stream, flank pain, fever, and or chills. She otherwise offers no other issues or concerns at this time. 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 Spondylosis of cervical spine Failed back syndrome, cervical Left cervical radiculopathy Surgical History S/P insertion of spinal cord stimulator Hx of hysterectomy, total History of tonsillectomy and adenoidectomy History of surgery on arm Status post debridement History of ankle surgery Family History Sister Breast cancer, Onset Age: 42 Social History Household Members: Spouse Household Members Other:: lives with , son and granddaughter Housing: House Are you a primary care mgr to a significant other at home: No Do you presently have visiting nurse or other home services: No Alcohol intake: current Alcohol intake frequency: 0-2 drinks per day Alcohol type: wine Patient Tobacco Use Status: Never used Tobacco e-Cigarette/Vaping Use: Never Used Second Hand Smoke Exposure: No service: No Current occupational status: disabled 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 [employer] - 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 Cognitive needs: No Hearing needs: No Vision needs: Yes (glasses) Review of Systems Const All systems reviewed & are unremarkable except as noted in HPI and below Physical Exam Const General: cooperative, healthy appearing, comfortable, no acute distress, well developed, alert and awake Nutritional Appearance: average body habitus Orientation/consciousness: patient oriented x3 Limitations: no limitations HEENT Head: Yes normal to inspection, Yes normocephalic and Yes atraumatic Ears: hearing grossly normal bilaterally Eyes General: appearance normal, both eyes and all related structures Neck Neck: Yes normal visual inspection and Yes trachea midline Chest Chest palpation & inspection: normal inspection of the chest Resp Effort & Inspection: normal respiratory effort and able to speak in complete sentences Cardio Rate: regular rate GI Inspection: Yes normal to inspection General: Yes no CVA tenderness Back/Spine/Pelvis Back: no CVA tenderness Skin General skin exam: no rashes or lesions noted Neuro General: patient oriented x3 Extrem General: Yes normal to inspection Psych Appearance: grossly normal and well kempt Mental Status: mental status grossly normal Speech and movement: Normal speech and movement present and Clear speech present Affect: normal affect Attitude: cooperative Thought process: Normal thought process present Thought content: Normal thought content present Insight: Fair insight present (Psych) Judgement: Fair judgement present (Psych) Office Procedures Cystoscopy Consent Discussed risk and benefit or proposed procedure with the patient. Information consent for procedure given to the patient. Discussed technical aspects, risks, benefits and alternatives in full. Addressed all of the patient's questions and concerns regarding the procedure. The patient demonstrated knowledge and understanding. They wish to proceed with this procedure. Preparation The patient was prepped in the usual manner. A social work associate was present and in the room. Genitalia was prepped with betadine solution in a sterile manner. Lidocaine Jelly 2% was placed into the urethra and 16Fr flexible Olympus cystoscope was inserted into the meatus after adequate lubrication. Procedure Urethra normal Bladder examination with retroflexion of cystoscope Bladder Orifices normal shape and position Trigone normal Bladder Capacity moderate Trabeculations mild Cellule Formation none Diverticulum Formation none Mucosal Erythema mild Bladder Tumor none Patient tolerated procedure well [id number] DISPOSABLE SCOPE URO-G FLEXIBLE SCOPE Procedure code (CPT) selection complete Office Meds lidocaine HCl 2 % mucosal jelly in applicator Performing Provider: BOLA Puri Performing Location: [facility] Administered by: Donavon Musa LPN on 10/20/24 14:43 Dose Route Admin Location Dispensed Lot Number Expiration Date [facility] Disaster Recovery Manager 10 mL intra-urethral 10 mL nitrofurantoin monohydrate/macrocrystals 100 mg capsule Performing Provider: BOLA Puri Performing Location: [facility] Administered by: Donavon Musa LPN on 10/20/24 14:43 Dose Route Admin Location Dispensed Lot Number Expiration Date [facility] Disaster Recovery Manager 100 mg PO 1 cap Results AMB Urinalysis, Automated UA Leukoctes 0 Edvin/uL Last Edit by SANDRA Donis on 10/20/24 15:04 UA Nitrite Negative Last Edit by SANDRA Donis on 10/20/24 15:04 UA Urobilinogen 0.2 mg/dL Last Edit by SANDRA Donis on 10/20/24 15:04 UA Protein 30 mg/dL Last Edit by SANDRA Donis on 10/20/24 15:04 UA pH 6.0 Last Edit by Percy Bernstein [facility] on 10/20/24 15:04 UA Blood 0 Naif/uL Last Edit by Percy Bernstein [facility] on 10/20/24 15:04 UA Specific [place] 1.025 Last Edit by Percy Bernstein [facility] on 10/20/24 15:04 UA Ketone Negative Last Edit by Percy Bernstein [facility] on 10/20/24 15:04 UA Bilirubin 0 mg/dL Last Edit by Percy Bernstein [facility] on 10/20/24 15:04 UA Glucose 0 mg/dL Last Edit by Percy Bernstein [facility] on 10/20/24 15:04 Results Reviewed Results Reviewed: Date of Service: 09/28/24 Procedure(s): US renal BI Findings: Bilateral kidneys are small, right kidney measures 7.9 cm in length, left kidney 8.0 cm in length, mild cortical thinning. No hydronephrosis or mass. Right renal 7 mm cyst in the upper pole, 2 mm calculus in the lower pole. Left renal multiple nonshadowing echogenic foci. No abnormal vascular flow of the either kidney. Impression: 1. Mildly atrophic kidneys. 2. Nonobstructing right renal calculus. 3. Multiple nonshadowing echogenic foci of the left kidney, artifacts versus nonobstructing nephrolithiasis, CT renal stone protocol can better evaluate if warranted. Date of Service: 07/03/24 Procedure(s): US bladder Findings: The urinary bladder is unremarkable. Prevoid volume: 168 mLPostvoid volume: 4.0 mL Ureteral jets are visualized bilaterally. IMPRESSION: Normal urinary bladder Assessment & Plan Assessment & Plan (1) Dysuria: Code(s): R30.0 - Dysuria Category: Medical (2) Sensation of pressure in bladder area: Code(s): R39.89 - Other symptoms and signs involving the genitourinary system Category: Medical (3) Nephrolithiasis: Code(s): N20.0 - Calculus of kidney Category: Medical Plan In office urinalysis results reviewed with the patient today; as noted above. Recent renal bladder ultrasound results reviewed with the patient today; as noted above. Previous microgen results reviewed with the patient today; as noted above. Start Estrace cream as discussed and prescribed. Start methenamine and vitamin-C as discussed and prescribed. We discussed bladder triggers and irritants. We did discuss potential causes lower urinary tract symptoms she is experiencing and further treatment options and risks and benefits of these treatment options. We discussed the importance of adequate hydration relation to lower urinary tract symptoms, nephrolithiasis, as well as overall health and well-being. All questions were answered. Follow-up in 3 months with [facility]; or sooner with any issues, concerns, and or questions. Orders: Orders AMB Urinalysis Automated Today Z13.9 - Encounter for screening, unspecified AMB Cystoscopy Today N30.10 - Interstitial cystitis (chronic) without hematuria, N39.0 - Urinary tract infection, site not specified, R30.0 - Dysuria Medications: New estradiol 0.01%(0.1mg/gram) pea-sized to urethra daily x1 month and then 3 times a week thereafter 42.5 grams 2RF 30 days N39.0 - Urinary tract infection, site not specified, N95.2 - Postmenopausal atrophic vaginitis ascorbic acid (vitamin C) 1 g PO DAILY 90 tabs 1RF 90 days N39.0 - Urinary tract infection, site not specified methenamine hippurate 1 g PO DAILY 90 tabs 1RF 90 days N39.0 - Urinary tract infection, site not specified Patient Instructions: The patient had an opportunity to ask questions regarding the treatment plan. All questions were answered. Physical exam, labs, and imaging were discussed and reviewed in detail. As well as risks, benefits, and discussion of treatment choices. No major barriers to understanding were identified. The patient expressed understanding and agreement with the above treatment plan. The patient was made aware they should contact our office by phone for worsening of their current condition, the appearance of new symptoms, or with any questions or concerns. Compliance is encouraged with any medications and follow up testing that is ordered. It is a privilege to be allowed the opportunity to participate in? your urological care.? Again, if you have any questions or concerns If you have any questions or concerns please do not hesitate to contact me. The office is [phone]. This note is constructed using voice recognition software. While every effort has been made to ensure accuracy disposal worker errors may have been included. Yours sincerely, BOLA Puri Coding Level of Care Code Est Pt Level 4 (34256) Complex EM visit Add On G2211 Diagnoses Dysuria R30.0 Sensation of pressure in bladder area R39.89 Nephrolithiasis N20.0 CPT Codes Cystoscopy - CPT: 53526-[id number] ([id number])
== END 2024-10-20 15:13 | disposition home or self-care (01) ==
LOC: HO.HUSH 14:26
PROVIDERS: PCP Physician Assistant; Visit Provider Nurse Practitioner Family
DX: R30.0 Dysuria (principal); R39.89 Other symptoms and signs involving the genitourinary system; N20.0 Calculus of kidney; N39.0 Urinary tract infection, site not specified; N30.10 Interstitial cystitis (chronic) without hematuria; Z13.9 Encounter for screening, unspecified
CPT/HCPCS: 52000; 99214; G2211

== ENCOUNTER → 2024-10-20 14:25 | Outpatient (BNVA) | payer MEDICARE, MEDICAID, SELFPAY | PROVIDERS: PCP Physician Assistant; Visit Provider Nurse Practitioner Family | DX: R30.0 Dysuria (principal); R39.89 Other symptoms and signs involving the genitourinary system; N30.10 Interstitial cystitis (chronic) without hematuria | CPT/HCPCS: 52000; 81003; 99212 ==

== ENCOUNTER 2024-10-30 10:28 | Outpatient (REF) | payer MEDICARE, MEDICAID, SELFPAY ==
--- NOTE | ~2024-10-30 | XR_ITS ---
EXAMINATION: XR WRIST 3 OR MORE VIEWS RIGHT HISTORY: M79.601 - Pain in right arm COMPARISON: There are no prior studies available for comparison. FINDINGS: Three views of the right wrist are submitted. The bones are osteopenic. There is no fracture or dislocation. There is moderate osteoarthritis of the 1st carpometacarpal joint, with joint space narrowing and osteophyte formation. The soft tissues are unremarkable. XR/XR wrist RT min 3V IMPRESSION: Osteopenia. Moderate osteoarthritis of the 1st carpometacarpal joint. Electronically signed by: Kyle Sandhu MD 10/30/2024 11:27 AM EDT
--- NOTE | ~2024-10-30 | XR_ITS ---
EXAMINATION: XR SHOULDER, RIGHT CLINICAL INFORMATION: M79.601 - Pain in right arm COMPARISON: None available. TECHNIQUE: Three views of the right shoulder. FINDINGS: Normal bone mineralization. No fracture, dislocation, or suspicious bone lesion. Normal alignment. There is a bone island in the medial humeral neck region. The glenohumeral joint is normal. The AC joint is normal. There is a type II acromion. No undersurface spurring. The subacromial space is preserved. Remainder of the soft tissue and bony structures appear normal. XR/XR shoulder RT min 2V IMPRESSION: Normal right shoulder. Electronically signed by: Ger Fall MD 10/30/2024 11:23 AM EDT
--- NOTE | ~2024-10-30 | XR_ITS ---
EXAMINATION: XR HUMERUS, RIGHT CLINICAL INFORMATION: M79.601 - Pain in right arm COMPARISON: None available. TECHNIQUE: AP and lateral views of the right humerus. FINDINGS: The bones and soft tissues are normal. Bone island in the medial humeral neck region. No fracture. Imaged portions of the shoulder and elbow are unremarkable. XR/XR humerus RT IMPRESSION: Normal right humerus. Electronically signed by: Ger Fall MD 10/30/2024 11:25 AM EDT
--- OUTSIDE RECORDS SUMMARY | 2024-10-30 10:33 | XMS_ITS | Patient Health Record ---
Author Organization [facility] Address [address] [place] [address] Care Team Providers Care Program Counselor Name Role Phone Coleman Romo Primary Care Provider UnavailKyle Dominguez Unavailable [phone] Allergies Allergen (clinical drug ingredient) Drug/Non Drug Allergy documented on EMR Reaction Allergy Type Onset Date Status morphine Morphine Unknown Drug Allergy Active Reason For Referral No Information Medications Medication SIG (Take, Route, Frequency, Duration) [...] empty stomach Orally Once a day Active Galcanezumab-gnlm 120 MG/ML as directed Subcutaneous Active Gabapentin 800 MG 1 tablet Orally thre e times a day Active Escitalopram Oxalate 20 MG 1 tablet Oral ly Once a day Active Dicyclomine HCl 20 MG 1 tablet Orally fo ur times a day Active Zolpidem Tartrate 10 MG 1 tablet at bedt bibi as needed Orally Once a day Active Cholecalciferol 25 MCG (1000 UT) 2 capsules Orally Once a day Active Topiramate 100 MG 1 tablet Orally twic day Active Atorvastatin Calcium 80 MG 1 tablet Oral ly Once a day Active Carafate 1 GM 1 tablet on an empty stomach Orally Twice a day Active Acetaminophen ER 650 MG 1 tablets as nee ded Orally every day Active Primidone 50 MG 1 tablet Orally Once a day Active Social History AUDIT-C (Standard) [...] Status Risk Notes Problem Colon cancer screening (431139539) Colon cancer screening (Z12.11) Active confirmed Problem Constipation (04168018) Constipation (K59.00) Active confirmed Problem Gastroesophageal reflux disease (081444420) GERD without esophagitis (K21.9) Active confirmed Problem Obstruction of small intestine co-occurrent and due to peritoneal adhesions (074453839) Small bowel obstruction due to adhesions (K56.50) Active confirmed Vital Signs Heart Rate 72 /min 10/08/2024 Blood pressure diastolic 01 mm Hg 10/08/2024 Height 62.5 in 10/08/2024 Blood pressure systolic 01 mm Hg 10/08/2024 Weight 122.8 lbs 10/08/2024 BMI 22.1 kg/m2 10/08/2024 Encounters Encounter Location Date Provider Diagnosis [facility] [address] [place] [phone] 10/08/2024 Kyle Vitale Colon cancer screeni ng Z12.11 ; Small bowel obstruction due to adhesions K56.50 ; GERD without esophagitis K21.9 and Constipation K59.00 [facility] [address] [place] [phone] 10/08/2024 Kyle Vitale Assessments Encounter Date Diagnosis (ICD Code) Assessment Notes Treatment Notes Treatment Clinical Notes Section Notes 10/08/2024 Colon cancer screening (ICD-10 - Z12.11) Repeat colonoscopy 03/2026 Ask Juanjose Romo about [...] continue that. I do not think she needs any further endoscopic evaluation in regard to reflux at this time. Her Linzess seems to be working well for her in regard to her constipation and I did advise her to continue that as well. If things are otherwise well I will see her in 2026 for a follow-up visit to schedule a screening colonoscopy. I did advise her to certainly contact me in the interim if she has any problems or questions I can be of assistance with. Aristides was comfortable with this plan. Thank you again for allowing me to participate in Aristides's care. I shall continue to keep you advised of her progress as needed. 10/08/2024 Small bowel obstruction due to adhesions [...] continue that. I do not think she needs any further endoscopic evaluation in regard to reflux at this time. Her Linzess seems to be working well for her in regard to her constipation and I did advise her to continue that as well. If things are otherwise well I will see her in 2026 for a follow-up visit to schedule a screening colonoscopy. I did advise her to certainly contact me in the interim if she has any problems or questions I can be of assistance with. Aristides was comfortable with this plan. Thank you again for allowing me to participate in Aristides's care. I shall continue to keep you advised of her progress as needed. 10/08/2024 GERD without esophagitis (ICD-10 - K21.9) [...] continue that. I do not think she needs any further endoscopic evaluation in regard to reflux at this time. Her Linzess seems to be working well for her in regard to her constipation and I did advise her to continue that as well. If things are otherwise well I will see her in 2026 for a follow-up visit to schedule a screening colonoscopy. I did advise her to certainly contact me in the interim if she has any problems or questions I can be of assistance with. Aristides was comfortable with this plan. Thank you again for allowing me to participate in Aristides's care. I shall continue to keep you advised of her progress as needed. 10/08/2024 Constipation (ICD-10 - K59.00) Continue Linzess [...] continue that. I do not think she needs any further endoscopic evaluation in regard to reflux at this time. Her Linzess seems to be working well for her in regard to her constipation and I did advise her to continue that as well. If things are otherwise well I will see her in 2026 for a follow-up visit to schedule a screening colonoscopy. I did advise her to certainly contact me in the interim if she has any problems or questions I can be of assistance with. Aristides was comfortable with this plan. Thank you again for allowing me to participate in Aristides's care. I shall continue to keep you advised of her progress as needed. Plan Of Treatment No Information Insurance Providers Payer Name Payer Address Payer Phone Subscriber Number Group Number Insured Name Patient Relationship to Insured Coverage Start Date Coverage End Date [facility] [address] [place] [address] [phone] [id number] TABITHA ARISTIDES Self - patient is the insured MEDICARE OF [place] [address] [place] [address] [id number] TABITHA ARISTIDES Self - patient is the insured 9 MEDICAID OF [facility] [address] [place] [id number] ARISTIDES LU Self - patient is the insured 9 Medical (General) History Medical History History ICD Code SBO in 05/2024 resolved with NG tube Denies [place],DM,CVA,renal disease Interstitial cystitis Neg. colonoscopy about [address] Ye- approx 2016 Migraines GERD-EGD about [address] Raffy huizar-approx. 2016 Hyperlipidemia Constipation Neuropathy in feet Anxiety/Depression Surgical History Surgery Date(Month/Year) Fractured ankle had screws and rods but then removed later Spinal stimulator [facility]UNG Hospitalization History Reason Date(Month/Year) SBO June 2024
== END 2024-10-30 10:29 | disposition home or self-care (01) ==
LOC: HO.HMGCX 10:28
PROVIDERS: PCP Physician Assistant; Visit Provider Physician Assistant
DX: M79.601 Pain in right arm (principal)
CPT/HCPCS: 73030; 73060; 73110

== ENCOUNTER → 2024-10-30 10:32 | Outpatient (BNV) | payer MEDICARE, MEDICAID, SELFPAY | PROVIDERS: PCP Physician Assistant; Visit Provider Radiology Diagnostic Radiology | DX: M25.511 Pain in right shoulder (principal); M18.11 Unilateral primary osteoarthritis of first carpometacarpal joint, right hand; M79.631 Pain in right forearm | CPT/HCPCS: 73030; 73060; 73110 ==

== ENCOUNTER 2024-11-17 06:28 | Outpatient (REF) | payer MEDICARE, MEDICAID, SELFPAY ==
--- OUTSIDE RECORDS SUMMARY | 2024-11-17 06:32 | XMS_ITS | Patient Health Record ---
Author Organization [facility] Address [address] [place] [address] Care Team Providers Care Charge Manager Name Role Phone Coleman Romo Primary Care Provider UnavailKyle Dominguez Unavailable [phone] Allergies Allergen (clinical drug ingredient) Drug/Non Drug [...] Status Risk Notes Problem Colon cancer screening (500424078) Colon cancer screening (Z12.11) Active confirmed Problem Constipation (12221029) Constipation (K59.00) Active confirmed Problem Gastroesophageal reflux disease (533426376) GERD without esophagitis (K21.9) Active confirmed Problem Obstruction of small intestine co-occurrent and due to peritoneal adhesions (746208770) Small bowel obstruction due to adhesions (K56.50) Active confirmed Vital Signs Heart Rate 72 /min 10/08/2024 Blood pressure diastolic 01 mm Hg 10/08/2024 Height 62.5 in 10/08/2024 Blood pressure systolic 01 mm Hg 10/08/2024 Weight 122.8 lbs 10/08/2024 BMI 22.1 kg/m2 10/08/2024 Encounters Encounter Location Date Provider Diagnosis [facility] [address] [place] [phone] 10/08/2024 Kyle Vitale Colon cancer screeni ng Z12.11 ; Small bowel obstruction due to adhesions K56.50 ; GERD without esophagitis K21.9 and Constipation K59.00 [facility] [address] [place] [phone] 10/08/2024 Kyle Vitale Assessments Encounter Date Diagnosis [...] Insured Coverage Start Date Coverage End Date [facility] [address] [place] [address] [phone] [id number] TABITHA ARISTIDES Self - patient is the insured MEDICARE OF [place] [address] [place] [address] [id number] TABITHA ARISTIDES Self - patient is the insured 9 MEDICAID OF [facility] [address] [place] [phone] [id number] ARISTIDES LU Self - patient is the insured 9 Medical (General) History Medical History History ICD Code SBO in 05/2024 resolved with NG tube Denies [place],DM,CVA,renal disease Interstitial cystitis Neg. colonoscopy about [address] Ye- approx 2016 Migraines GERD-EGD about [address] Raffy huizar-approx. 2016 Hyperlipidemia Constipation Neuropathy in feet Anxiety/Depression Surgical History Surgery Date(Month/Year) Fractured ankle had screws and rods but then removed later Spinal stimulator [facility]G Hospitalization History Reason Date(Month/Year) SBO June 2024
[2024-11-17 10:11] LABS: Hematocrit 39.6 % (37.0-47.0); Hemoglobin 12.6 g/dl (12.0-16.0); Mean Corpuscular HGB Conc 31.8 g/dl (31.0-35.0); Mean Corpuscular Hemoglobin 29.3 pg (27.0-33.0); Mean Corpuscular Volume 92.1 fL (80.0-98.0); NRBC Abs Auto 0.000 X10*3/uL (0.0-0.012); NRBC Pct Auto 0.0 /100WBC (0.0-0.2); Platelet Count 197 X10*3/uL (160-400); Red Blood Count 4.30 X10*6/uL (4.20-5.50); White Blood Count 3.4 X10*3/uL (4.8-10.8)
[2024-11-17 10:23] LABS: Alanine Aminotransferase 20 U/L (0-31); Albumin Level 4.1 g/dL (3.5-5.0); Alkaline Phosphatase 78 U/L (39-117); Anion Gap 11 (12-20); Aspartate Amino Transferase 25 U/L (5-31); Blood Urea Nitrogen 10 mg/dL (9-16); Calcium 9.1 mg/dL (8.4-10.2); Carbon Dioxide 24 mmol/L (22-29); Chloride 114 mmol/L (96-108); Cholesterol 187 mg/dL (<200); Estimated Glomerular Filt Rate > 60; HDL Cholesterol 65 mg/dL (>40); Potassium 4.1 mmol/L (3.3-5.1); Sodium 145 mmol/L (135-145); Total Protein 5.7 g/dL (6.5-8.0); Triglycerides 76 mg/dL (<150)
== END 2024-11-17 06:29 | disposition home or self-care (01) ==
LOC: HO.HMGCLDS 06:28
PROVIDERS: PCP Physician Assistant; Visit Provider Physician Assistant
DX: E78.5 Hyperlipidemia, unspecified (principal); D75.89 Other specified diseases of blood and blood-forming organs
CPT/HCPCS: 36415; 80053; 80061; 85027

== ENCOUNTER 2024-11-19 07:43 | Outpatient (AMB) | payer MEDICARE, SELFPAY ==
[2024-11-19 07:45] VITALS: BP 124/72; PULSE 62; O2SAT 94; BMI 22.9
--- NOTE | 2024-11-19 07:45 | MHC.PC.OV ---
Vital Signs 11/19/24 07:45 Height 5 ft 1 in Weight 121 lb 6 oz BMI 22.9 BP 124/72 Blood Pressure Location Lt brachial Position Sitting Pulse 62 Pulse Source Pulse Oximeter Pulse Oximetry (%) 94 Oxygen Delivery Method Room Air Intake Visit Reasons: PE R/S from 11/05 Allergies morphine Allergy (Verified 11/19/24 08:19) Difficulty Breathing Medication List - Last Reconciled 11/19/24 by Coleman Romo PA-C acetaminophen ER 650 mg PO TID PRN 30 days alendronate (Fosamax) 70 mg PO QWEEK 12 weeks ascorbic acid (vitamin C) 1 g PO DAILY 90 days atorvastatin 80 mg PO BEDTIME 90 days dicyclomine 20 mg PO QID 90 days escitalopram oxalate 20 mg PO DAILY gabapentin 800 mg PO TID PRN galcanezumab-gnlm (Emgality Pen) 120 mg subcut QMONTH 30 days linaclotide (Linzess) 290 mcg PO DAILY 90 days methenamine hippurate 1 g PO DAILY 90 days montelukast 10 mg PO BEDTIME 90 days pantoprazole 40 mg PO DAILY@0630 90 days primidone 50 mg PO BEDTIME 90 days solifenacin 5 mg PO DAILY sucralfate (Carafate) 1 g PO BID 90 days topiramate 100 mg PO BID 90 days zolpidem 10 mg PO BEDTIME 30 days Tobacco use date assessed: 05/04/24 Fall risk assessment: No Falls in past year Last assessed Fall Risk: 11/19/24 Dental Screening Dental Screen Date: 05/04/24 HPI PE R/S from 11/05 HPI Details Patient is a 69 old female here today for a routine annual physical Patient has a past medical history significant for generalized anxiety disorder, migraines, GERD, hyperlipidemia, lumbar and cervical disc disease. Right arm pain: The patient reports significant pain in her right arm, particularly in the shoulder area, which has been identified as biceps tendinitis. She experiences difficulty lifting her arm above her head, and the pain is localized to the biceps region. X-rays were normal, indicating no bone abnormalities, suggesting a soft tissue issue. Concern--> interstitial cystitis: Continues to follow urology here in [place]. Has undergone a cystoscopy which did show abnormalities and has a bacteria urine cultures. Due to her chronic bladder pain her appetite has been reduced. The patient has experienced significant weight loss, dropping from 134 pounds to 121 pounds since spring, attributed to her reduced appetite and dietary restrictions due to bladder issues. Her blood tests indicate low total protein levels, likely due to inadequate nutritional intake. She has been advised to incorporate protein shakes into her diet to improve her nutritional status and support bone health Essential tremor: Has been started on primidone 50 mg at bedtime which has drastically reduced her tremor. .. Osteopenia: The patient has a history of osteoporosis, which is a concern due to her family history of severe bone degeneration leading to fractures. She is currently on Fosamax and has been advised to take it on an empty stomach once a week. She also takes Lenzast and has been instructed on how to manage the timing of these medications to avoid gastrointestinal issues. Cervical disc disease:? Patient is followed by [place] pain management and has received a spinal stimulator her cervical spine.? She is now off of all narcotic pain medication in doing very well. HLD: Most recent lipid panel showing excellent control over total cholesterol and LDL. She still has slight mild elevation in her triglycerides .. Migraines:? Reports her migraines have been fairly stable, continues on Emgality and Topamax. Colonoscopy: Has with Dr Pereira at [facility] 2017- repeat 10 years. Vaccines:? Up-to-date with COVID vaccine, up-to-date with pneumonia vaccine. UTD with FLu, UTD with Td Mammogram: Mammogram done in May of 2024 BI-RADS -1 Laboratory Tests 06/12/24 06/13/24 06/15/24 14:22 05:34 05:44 WBC RBC 4.21 3.25 L D Hgb 10.3 L D Potassium 3.0 L D 3.1 L Creatinine Cholesterol LDL Cholesterol, C alc 11/17/24 06:44 WBC 3.4 L RBC 4.30 D Hgb 12.6 D Potassium 4.1 D Creatinine 0.92 Cholesterol 187 LDL Cholesterol, C alc 107 [facility] Medical History Small bowel obstruction COVID-19 vaccine series completed Chronic cough Hyperlipidemia GERD (gastroesophageal reflux disease) Migraines Anxiety IBS (irritable bowel syndrome) Tremor snf (current) use of opiate analgesic Spondylosis of cervical spine Failed back syndrome, cervical Left cervical radiculopathy Surgical History S/P insertion of spinal cord stimulator Hx of hysterectomy, total History of tonsillectomy and adenoidectomy History of surgery on arm Status post debridement History of ankle surgery Family History Sister Breast cancer, Onset Age: 42 Social History Household Members: Spouse Household Members Other:: lives with , son and granddaughter Housing: House Are you a primary healthcare recruiter to a significant other at home: No Do you presently have visiting nurse or other home services: No Alcohol intake: current Alcohol intake frequency: 0-2 drinks per day Alcohol type: wine Patient Tobacco Use Status: Never used Tobacco Tobacco use type: Cigarette e-Cigarette/Vaping Use: Never Used Second Hand Smoke Exposure: No service: No Current occupational status: disabled 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 [employer] - 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 1. Little interest or pleasure in doing things: not at all 2. Feeling down, depressed, or hopeless: not at all 3. Trouble falling or staying asleep, or sleeping too much: not at all 4. Feeling tired or having little energy: not at all 5. Poor appetite or overeating: not at all 6. Feeling bad about yourself - or that you are a failure or have let yourself or your family down: not at all 7. Trouble concentrating on things, such as reading the newspaper or watching television: not at all 8. Moving or speaking so slowly that other people could have noticed. Or the opposite - being so fidgety or restless that you have been moving around a lot more than usual: not at all 9. Thoughts that you would be better off or of hurting yourself in some way: not at all Total score: 0 Depression Screening Interpretation: Negative Depression Screening Done: Yes 53775 - PHQ-9 Billing: Yes Source: Developed by Drs. Kyle Dao, Carmita Espinal, Rashard Burgess and colleagues, with an educational babita from [employer]. Thrive Questionnaire Date Thrive assessed: 06/14/24 I am a: Patient What is your living situation today?: I have a steady place to live Within the past 12 months, did the food you bought not last and you didn't have the money to get more?: Never true Within the past 12 months, did you worry whether your food would run out before you got money to buy more?: Never true Do you have trouble paying for medicines?: No Do you have trouble getting transportation to medical appointments?: No Do you have trouble paying your heating and electricity bill?: Yes Do you have trouble taking care of your child, family member or friend?: No Do you have trouble with day-to-day activities such as bathing, preparing meals, shopping, managing finances, etc.?: No Are you currently unemployed and looking for a job?: No Are you interested in more education?: No Please select the resources that you would like help with: Utilities Currently or been in a relationship where the following occur: I choose not to answer THRIVE Score: 1 AUDIT C Alcohol Use Questionnaire (AUDIT-C) 1. How often do you have a drink containing alcohol?: Never 3. How often do you have six or more drinks on one occasion?: Never Total Score: 0 ROSA ELENA-7 AMB Questionnaire ROSA ELENA-7 Date ROSA ELENA - 7 assessed: 05/04/24 Feeling nervous, anxious, or on edge: 0 = Not at all Not being able to stop or control worryin = Not at all Worrying too much about different things: 0 = Not at all Trouble relaxin = Not at all Being so restless that it is hard to sit still: 0 = Not at all Becoming easily annoyed or irritable: 0 = Not at all Feeling afraid as if something awful might happen: 0 = Not at all Total ROSA ELENA-7 score (0-4 normal; 5-9 mild; 10-14 moderate; 15-21 severe): 0 Source: Developed by Carmita Escobar, Rashard Burgess and colleagues, with an educational babita from [employer]. ROSA ELENA-7 Assessment Billing ROSA ELENA-7 Assessment Tool: ROSA ELENA-7 Assessment 19434 Review of Systems Const Denies body aches, Denies chills, Denies excessive sweating, Denies fatigue, Denies fever(s) and Denies headache(s) Eyes Denies blurry vision ENT Denies dysphagia, Denies vertigo, Denies dizziness, Denies headache(s), Denies hearing loss and Denies tinnitus Card Denies chest pain, Denies chest pain with activity, Denies syncope, Denies irregular heart rhythm and Denies dyspnea Resp Denies chest congestion, Denies cough, Denies hemoptysis, Denies dyspnea and Denies wheezing GI Denies abdominal pain, Denies melena, Denies hematochezia, Denies coffee ground emesis, Denies dysphagia, Denies diarrhea, Denies nausea and Denies vomiting Denies urinary frequency, Reports dysuria, Reports pelvic pain, Denies urinary hesitancy and Denies urinary urgency Musc Denies arthralgias, Denies limited range of motion, Denies muscle cramps and Denies muscle weakness Skin/Breast Denies rash and Denies skin ulcer Neuro Denies Abnormal speech present, Denies confusion, Denies vertigo, Denies dizziness, Denies syncope, Denies headache(s), Denies memory loss and Denies seizure-like activity Psych Denies anxiety, Denies confusion, Denies depression, Denies memory loss, Denies panic attacks and Denies paranoia Endo Denies excessive sweating, Denies fatigue, Denies flushing, Denies polydipsia and Denies polyuria Aller/Immun Denies wheezing Physical exam (Primary Care) Vital Signs: Last Vital Signs Pulse 62 11/19/24 07:45 BP 124/72 11/19/24 07:45 Pulse Ox 94 11/19/24 07:45 Oxygen Delivery Method Room Air 11/19/24 07:45 BMI result Body Mass Index 22.9 Tobacco/Smoking Status: Tobacco use Status Tobacco use date assessed 05/04/24 11/19/24 07:47 Patient Tobacco Use Status Never used Tobacco 11/19/24 07:47 Tobacco use type Cigarette 11/19/24 07:47 e-Cigarette/Vaping Use Never Used 11/19/24 07:47 PHQ-9: PHQ-9 Score PHQ-9: Total score 0 11/19/24 08:00 Depression Screening Interpretation: Negative Thrive Assessment: Date of Thrive Assessment Date Thrive assessed 06/14/24 11/19/24 07:47 Currently or been in a relationship where the following occur: I choose not to answer Const General: cooperative, comfortable, no acute distress, alert and awake; No confusion Orientation/consciousness: oriented to person, oriented to place, patient oriented x3 and No confusion HENMT Head: Yes normocephalic Ears: external ears normal and TM's normal bilaterally Face and sinus: No sinus tenderness Mouth: Normal oral and palatal mucosa present and tongue normal Teeth and gingiva: dentition normal and gingiva normal Throat: Yes posterior oropharynx normal, Yes tonsils normal and Yes uvula midline Eyes Conjunctivae: conjunctivae normal Sclerae: sclerae normal Pupils: Equal, round and reactive pupils present EOM: EOMs intact bilaterally Direct Ophthalmoscopy: No no photophobia Neck Neck: Yes no lymphadenopathy, No tender and Yes no JVD Thyroid: Thyroid normal Carotids: no bruits Chest Chest palpation & inspection: no tenderness Resp Effort & Inspection: normal respiratory effort, no audible wheezes, not labored and no stridor Auscultation: no crackles, no rales, no rhonchi and no wheezes Cardio Jugular venous distension: no JVD Rate: regular rate, not bradycardic and not tachycardic Rhythm: regular rhythm Bruits: no carotid bruits Peripheral pulses: Peripheral pulses 2+ throughout GI Inspection: Yes normal to inspection, No abdominal wall ecchymosis and No visible herniation Palpation (GI): Soft to palpation, nontender, no guarding, not rigid and No hepatosplenomegaly present Auscultation: normoactive bowel sounds General: Yes no CVA tenderness Back/Spine/Pelvis Back: no CVA tenderness and No back tenderness Cervical Spine: cervical ROM normal Thoracic/Lumbar Spine: thoracic and lumbar spine normal to inspection, straight leg raise negative bilaterally, No thoraco-lumbar ROM limited and No lumbar spinal tenderness Skin Lesions: no lesions Rashes: no rashes Wounds: no wounds Neuro General: oriented to person, oriented to place, patient oriented x3, CN's II-XI intact bilaterally and No confusion Cranial nerves: Yes Equal, round and reactive pupils present and Yes Normal accommodation reflex present Cognition (Neuro): normal cognition Speech: No Abnormal speech present Gait exam (Neuro): Normal gait present Motor exam (neuro): 07/27 motor strength present throughout Extrem Right upper extremity: full ROM; no cyanosis Left upper extremity: full ROM; no cyanosis Right lower extremity: no edema Left lower extremity: no edema Psych Appearance: grossly normal Mental Status: mental status grossly normal Affect: normal affect Attitude: cooperative Thought process: Normal thought process present Coding Level of Care Code Est Pt Prev Care >65y(65369) Diagnoses Annual physical exam Z00.00 Hyperlipidemia, unspecified hyperlipidemia type E78.5 Hyperlipidemia type: unspecified Migraine without aura and without status migrainosus, not intractable G43.009 Migraine type: without aura Status migrainosus presence: without status migrainosus Intractability: not intractable Fracture Risk Assessment Score (FRAX) indicating greater than 20% risk for major osteoporosis-related fracture Z91.89 Interstitial cystitis N30.10 Right upper limb pain M79.601 Additional Codes PHQ-9 - 38774 - PHQ-9 Billing: Yes ([id number]) ROSA ELENA-7 Assessment Billing - ROSA ELENA-7 Assessment Tool: ROSA ELENA-7 Assessment 42697 ([id number]) Assessment & Plan Assessment & Plan (1) Annual physical exam: Code(s): Z00.00 - Encounter for general adult medical examination without abnormal findings Category: Medical Plan: As per HPI (2) HLD (hyperlipidemia): Code(s): E78.5 - Hyperlipidemia, unspecified Category: Medical Qualifiers: Hyperlipidemia type: unspecified Qualified Code(s): E78.5 - Hyperlipidemia, unspecified Plan: Patient's recent fasting lipid panel showing excellent control over total cholesterol and LDL. Will continue her current dose of atorvastatin at 80 mg with goal LDL to remain below 130 (3) Migraines: Code(s): G43.909 - Migraine, unspecified, not intractable, without status migrainosus Category: Medical Qualifiers: Migraine type: without aura Status migrainosus presence: without status migrainosus Intractability: not intractable Qualified Code(s): G43.009 - Migraine without aura, not intractable, without status migrainosus Plan: She reports her migraines have been well under control with monthly injections of Emgality in daily topiramate. (4) Fracture Risk Assessment Score (FRAX) indicating greater than 20% risk for major osteoporosis-related fracture: Code(s): Z91.89 - Other specified personal risk factors, not elsewhere classified Category: Medical Plan: The patient is currently on Fosamax, which she takes once a week on an empty stomach to manage her osteoporosis. She has been advised to engage in weight-bearing exercises such as yoga and shani chi to improve bone health. A follow-up bone density test is planned in two years to assess the effectiveness of the treatment. (5) Interstitial cystitis: Code(s): N30.10 - Interstitial cystitis (chronic) without hematuria Category: Medical Plan: The patient has been diagnosed with interstitial cystitis, causing significant bladder pain and dietary restrictions. She is under treatment with medications, and dietary modifications have been recommended to avoid exacerbating symptoms. Further evaluation and adjustment of medications are ongoing to manage her symptoms effectively. (6) Right upper limb pain: Code(s): M79.601 - Pain in right arm Category: Medical Plan: The patient reports significant pain in her right arm, particularly in the shoulder area, diagnosed as biceps tendinitis. Initial management includes physical therapy and anti-inflammatory medications to reduce pain and improve range of motion. If symptoms persist, further imaging such as an MRI may be considered after six weeks of therapy. Orders: Orders Complete Blood Count no Diff Today D75.89 - Other specified diseases of blood and blood-forming organs Lipid Panel Today E78.5 - Hyperlipidemia, unspecified Comprehensive [place]. Panel Fast Today E78.5 - Hyperlipidemia, unspecified Medications: Changed From gabapentin 800 mg PO TID PRN Pain T85.192S - Other mechanical complication of implanted electronic neurostimulator of spinal cord electrode (lead), sequela To gabapentin 800 mg PO TID 270 tabs 1RF Pain 90 days T85.192S - Other mechanical complication of implanted electronic neurostimulator of spinal cord electrode (lead), sequela Refilled escitalopram oxalate 20 mg PO DAILY 90 tabs 2RF F41.1 - Generalized anxiety disorder montelukast 10 mg PO BEDTIME 90 tabs 3RF 90 days J30.9 - Allergic rhinitis, unspecified topiramate 100 mg PO BID 180 tabs 2RF 90 days G43.909 - Migraine, unspecified, not intractable, without status migrainosus atorvastatin 80 mg PO BEDTIME 90 tabs 2RF 90 days E78.5 - Hyperlipidemia, unspecified primidone 50 mg PO BEDTIME 90 tabs 2RF 90 days R25.1 - Tremor, unspecified
--- OUTSIDE RECORDS SUMMARY | 2024-11-19 07:47 | XMS_ITS | Patient Health Record ---
Author Organization [facility] Address [address] [place] [address] Care Team Providers Care Information Assurance Specialist Name Role Phone Coleman Romo Primary Care Provider UnavailKyle Dominguez Unavailable [phone] Allergies Allergen (clinical drug ingredient) Drug/Non Drug [...] Status Risk Notes Problem Colon cancer screening (609078330) Colon cancer screening (Z12.11) Active confirmed Problem Constipation (38491027) Constipation (K59.00) Active confirmed Problem Gastroesophageal reflux disease (094024330) GERD without esophagitis (K21.9) Active confirmed Problem Obstruction of small intestine co-occurrent and due to peritoneal adhesions (665038524) Small bowel obstruction due to adhesions (K56.50) Active confirmed Vital Signs Heart Rate 72 /min 10/08/2024 Blood pressure diastolic 01 mm Hg 10/08/2024 Height 62.5 in 10/08/2024 Blood pressure systolic 01 mm Hg 10/08/2024 Weight 122.8 lbs 10/08/2024 BMI 22.1 kg/m2 10/08/2024 Encounters Encounter Location Date Provider Diagnosis [facility] [address] [place] [id number] 10/08/2024 Kyle Vitale Colon cancer screeni ng Z12.11 ; Small bowel obstruction due to adhesions K56.50 ; GERD without esophagitis K21.9 and Constipation K59.00 [facility] [address] [place] [id number] 10/08/2024 Kyle Vitale Assessments Encounter Date Diagnosis [...] Insured Coverage Start Date Coverage End Date [facility] [address] [place] [address] [phone] [id number] TABITHA ARISTIDES Self - patient is the insured MEDICARE OF [place] [address] [place] [address] [id number] TABITHA ARISTIDES Self - patient is the insured 9 MEDICAID OF [facility] [address] [place] [phone] [id number] ARISTIDES LU Self - patient is the insured 9 Medical (General) History Medical History History ICD Code SBO in 05/2024 resolved with NG tube Denies CO,DM,CVA,renal disease Interstitial cystitis Neg. colonoscopy about [address] Ye- approx 2016 Migraines GERD-EGD about [address] Raffy huizar-approx. 2016 Hyperlipidemia Constipation Neuropathy in feet Anxiety/Depression Surgical History Surgery Date(Month/Year) Fractured ankle had screws and rods but then removed later Spinal stimulator [facility] Hospitalization History Reason Date(Month/Year) SBO June 2024
== END 2024-11-19 08:47 | disposition home or self-care (01) ==
LOC: HO.HMCH 07:43
PROVIDERS: PCP Physician Assistant; Visit Provider Physician Assistant
DX: Z00.00 Encounter for general adult medical examination without abnormal findings (principal); E78.5 Hyperlipidemia, unspecified; G43.009 Migraine without aura, not intractable, without status migrainosus; Z91.89 Other specified personal risk factors, not elsewhere classified; N30.10 Interstitial cystitis (chronic) without hematuria; M79.601 Pain in right arm

== ENCOUNTER → 2024-11-19 07:43 | Outpatient (BNVA) | payer MEDICARE, OTHER, SELFPAY | PROVIDERS: PCP Physician Assistant; Visit Provider Physician Assistant | DX: Z00.00 Encounter for general adult medical examination without abnormal findings (principal); M75.21 Bicipital tendinitis, right shoulder; R39.89 Other symptoms and signs involving the genitourinary system; R25.1 Tremor, unspecified; E78.5 Hyperlipidemia, unspecified; G43.009 Migraine without aura, not intractable, without status migrainosus; N30.10 Interstitial cystitis (chronic) without hematuria; F41.1 Generalized anxiety disorder; T85.192S Other mechanical complication of implanted electronic neurostimulator of spinal cord electrode (lead), sequela; Z91.89 Other specified personal risk factors, not elsewhere classified | CPT/HCPCS: 96127; 99397 ==

== ENCOUNTER 2025-01-11 14:46 | Outpatient (AMB) | payer MEDICARE, MEDICAID, SELFPAY ==
--- NOTE | 2025-01-11 15:04 | A.OFFVIS_ITS ---
Intake Visit Reasons: 3m/PVR Intake Note: Patient is present for 3mo/PVR Urology Medication:methenamine hippurate Blood Thinner:NONE today's PVR: 7mls Agile Coach Required: No Accompanied by: Self / Same As Patient Allergies morphine Allergy (Verified 01/11/25 15:42) Difficulty Breathing Medication List - Last Reconciled 01/11/25 by BOLA Puri acetaminophen ER 650 mg PO TID PRN 30 days alendronate (Fosamax) 70 mg PO QWEEK 12 weeks ascorbic acid (vitamin C) 1 g PO DAILY 90 days atorvastatin 80 mg PO BEDTIME 90 days dicyclomine 20 mg PO QID 90 days escitalopram oxalate 20 mg PO DAILY gabapentin 800 mg PO TID 90 days galcanezumab-gnlm (Emgality Pen) 120 mg subcut QMONTH 30 days linaclotide (Linzess) 290 mcg PO DAILY 90 days methenamine hippurate 1 g PO DAILY 90 days montelukast 10 mg PO BEDTIME 90 days pantoprazole 40 mg PO DAILY@0630 90 days primidone 50 mg PO BEDTIME 90 days solifenacin 5 mg PO DAILY sucralfate (Carafate) 1 g PO BID 90 days topiramate 100 mg PO BID 90 days zolpidem 10 mg PO BEDTIME 30 days HPI Comments Details: Ani is a very pleasant 69-year-old female patient of Dr. Romo. She has a past medical history of small-bowel obstruction, tremors, chronic cough, hyperlipidemia, GERD, migraines, anxiety, IBS, and spondylosis of cervical spine. She presents to the office today for follow-up. Of note, patient was last seen approximally 3 months at which time she underwent an in office cystoscopy that noted mild trabeculations otherwise NAD. She was started on methenamine and vitamin-C for suppression therapy. In discussion with the patient today she does feel symptoms have improved. She does feel though in the later evening she tends to experience dysuria however describes this as mild in self managing. In office urinalysis results reviewed with the patient today. PVR 7 mL. Previous workup has included a retroperitoneal ultrasound 10/16 noting bilateral kidneys are small mildly atrophic, nonobstructing right renal calculus measuring approximately 2 mm. Question of multiple nonobstructing echogenic foci of the left kidney verses artifacts. The urinary bladder is normal and unremarkable per radiology report. Microgen results are as follows: microgen: 08/16 Streptococcus vestibularis, bacteroides stercors, alistipes, Streptococcus anginous; 09/16 Staphylococcus epidermis Patient was also started on topical estrogen therapy due to atrophy noted to the urethra prior to insertion of cystoscope. However, she did not feel this was helpful and has since stopped estrogen as prescribed. When asked she does report to be drinking plenty of water daily. We did discuss further treatment options and risks and benefits of these treatment options. We discussed bladder triggers and irritants. She would like to continue with current management as she does feel her symptoms have improved. She currently denies urinary urgency, urinary frequency, incontinence, nocturia, hematuria, foul smelling urine, changes to urinary stream, flank pain, fever, and or chills. She otherwise offers no other issues or concerns at this time. [facility] Medical History Small bowel obstruction COVID-19 vaccine series completed Chronic cough Hyperlipidemia GERD (gastroesophageal reflux disease) Migraines Anxiety IBS (irritable bowel syndrome) Tremor retirement (current) use of opiate analgesic Spondylosis of cervical spine Failed back syndrome, cervical Left cervical radiculopathy Surgical History S/P insertion of spinal cord stimulator Hx of hysterectomy, total History of tonsillectomy and adenoidectomy History of surgery on arm Status post debridement History of ankle surgery Family History Sister Breast cancer, Onset Age: 42 Social History Household Members: Spouse Household Members Other:: lives with , son and granddaughter Housing: House Are you a primary pet caregiver to a significant other at home: No Do you presently have visiting nurse or other home services: No Alcohol intake: current Alcohol intake frequency: 0-2 drinks per day Alcohol type: wine Patient Tobacco Use Status: Never used Tobacco Tobacco use type: Cigarette e-Cigarette/Vaping Use: Never Used Second Hand Smoke Exposure: No service: No Current occupational status: disabled 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 [employer] - 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 Cognitive needs: No Hearing needs: No Vision needs: Yes (glasses) Review of Systems Const All systems reviewed & are unremarkable except as noted in HPI and below Physical Exam Const General: cooperative, healthy appearing, comfortable, no acute distress, well developed, alert and awake Nutritional Appearance: average body habitus Orientation/consciousness: patient oriented x3 Limitations: no limitations HEENT Head: Yes normal to inspection, Yes normocephalic and Yes atraumatic Ears: hearing grossly normal bilaterally Eyes General: appearance normal, both eyes and all related structures Neck Neck: Yes normal visual inspection and Yes trachea midline Chest Chest palpation & inspection: normal inspection of the chest Resp Effort & Inspection: normal respiratory effort and able to speak in complete sentences Cardio Rate: regular rate GI Inspection: Yes normal to inspection General: Yes no CVA tenderness Back/Spine/Pelvis Back: no CVA tenderness Skin General skin exam: no rashes or lesions noted Neuro General: patient oriented x3 Extrem General: Yes normal to inspection Psych Appearance: grossly normal and well kempt Mental Status: mental status grossly normal Speech and movement: Normal speech and movement present and Clear speech present Affect: normal affect Attitude: cooperative Thought process: Normal thought process present Thought content: Normal thought content present Insight: Fair insight present (Psych) Judgement: Fair judgement present (Psych) Assessment & Plan Assessment & Plan (1) Nephrolithiasis: Code(s): N20.0 - Calculus of kidney Category: Medical (2) Dysuria: Code(s): R30.0 - Dysuria Category: Medical (3) Interstitial cystitis: Code(s): N30.10 - Interstitial cystitis (chronic) without hematuria Category: Medical (4) Sensation of pressure in bladder area: Code(s): R39.89 - Other symptoms and signs involving the genitourinary system Category: Medical Plan In office urinalysis results with the patient today; as noted above. PVR 7 mL. Continue methenamine and vitamin-C as prescribed. Will stop Estrace cream. We did discussed further treatment options and risks and benefits of these treatment options. Will continue with current management. Will continue with surveillance monitoring. We discussed bladder triggers and irritants. Follow-up in 3 months with PVR; or sooner with any issues, concerns, and or questions. Patient Instructions: The patient had an opportunity to ask questions regarding the treatment plan. All questions were answered. Physical exam, labs, and imaging were discussed and reviewed in detail. As well as risks, benefits, and discussion of treatment choices. No major barriers to understanding were identified. The patient expressed understanding and agreement with the above treatment plan. The patient was made aware they should contact our office by phone for worsening of their current condition, the appearance of new symptoms, or with any questions or concerns. Compliance is encouraged with any medications and follow up testing that is ordered. It is a privilege to be allowed the opportunity to participate in? your urological care.? Again, if you have any questions or concerns If you have any questions or concerns please do not hesitate to contact me. The office is [phone]. This note is constructed using voice recognition software. While every effort has been made to ensure accuracy computer training specialist errors may have been included. Yours sincerely, BOLA Puri Coding Level of Care Code Est Pt Level 3 (35854) Complex EM visit Add On G2211 Diagnoses Nephrolithiasis N20.0 Dysuria R30.0 Interstitial cystitis N30.10 Sensation of pressure in bladder area R39.89
--- OUTSIDE RECORDS SUMMARY | 2025-01-11 18:41 | XMS_ITS | Patient Health Record ---
Author Organization [facility] Address [address] [place] [address] Care Team Providers Care Nurses Supervisor Name Role Phone Coleman Romo Primary Care Provider UnavailKyle Dominguez Unavailable [phone] Allergies Allergen (clinical drug ingredient) Drug/Non Drug [...] Status Risk Notes Problem Colon cancer screening (353252459) Colon cancer screening (Z12.11) Active confirmed Problem Constipation (50941501) Constipation (K59.00) Active confirmed Problem Gastroesophageal reflux disease (201170957) GERD without esophagitis (K21.9) Active confirmed Problem Obstruction of small intestine co-occurrent and due to peritoneal adhesions (756982776) Small bowel obstruction due to adhesions (K56.50) Active confirmed Vital Signs Heart Rate 72 /min 10/08/2024 Blood pressure diastolic 01 mm Hg 10/08/2024 Height 62.5 in 10/08/2024 Blood pressure systolic 01 mm Hg 10/08/2024 Weight 122.8 lbs 10/08/2024 BMI 22.1 kg/m2 10/08/2024 Encounters Encounter Location Date Provider Diagnosis [facility] [address] [place] [id number] 10/08/2024 Kyle Vitale Colon cancer screeni ng Z12.11 ; Small bowel obstruction due to adhesions K56.50 ; GERD without esophagitis K21.9 and Constipation K59.00 [facility] [address] [place] [id number] 10/08/2024 Kyle Vitale Assessments Encounter Date Diagnosis [...] Insured Coverage Start Date Coverage End Date [facility] [address] [place] [address] [phone] [id number] TABITHA ARISTIDES Self - patient is the insured MEDICARE OF [place] [address] [place] [address] [phone] [id number] TABITHA ARISTIDES Self - patient is the insured 9 MEDICAID OF [facility] [address] [place] [phone] [id number] ARISTIDES LU Self - patient is the insured 9 Medical (General) History Medical History History ICD Code SBO in 05/2024 resolved with NG tube Denies HI,DM,CVA,renal disease Interstitial cystitis Neg. colonoscopy about [address] Ye- approx 2016 Migraines GERD-EGD about [address] Raffy huizar-approx. 2016 Hyperlipidemia Constipation Neuropathy in feet Anxiety/Depression Surgical History Surgery Date(Month/Year) Fractured ankle had screws and rods but then removed later Spinal stimulator [facility]G Hospitalization History Reason Date(Month/Year) SBO June 2024
== END 2025-01-11 15:38 | disposition home or self-care (01) ==
LOC: HO.HUSH 14:47
PROVIDERS: PCP Physician Assistant; Visit Provider Nurse Practitioner Family
DX: N20.0 Calculus of kidney (principal); R30.0 Dysuria; N30.10 Interstitial cystitis (chronic) without hematuria; R39.89 Other symptoms and signs involving the genitourinary system; Z13.9 Encounter for screening, unspecified
CPT/HCPCS: 99213; G2211

== ENCOUNTER → 2025-01-11 14:46 | Outpatient (BNVA) | payer MEDICARE, MEDICAID, SELFPAY | PROVIDERS: PCP Physician Assistant; Visit Provider Nurse Practitioner Family | DX: N20.0 Calculus of kidney (principal); R30.0 Dysuria; N30.10 Interstitial cystitis (chronic) without hematuria; R39.89 Other symptoms and signs involving the genitourinary system | CPT/HCPCS: 51798; 81003; 99212 ==